=== PATIENT | female | born 1970 | race Caucasian/White ===

== ENCOUNTER 2019-09-15 08:31 | Outpatient (CLI) | payer OTHER, SELFPAY ==
--- NOTE | ~2019-09-15 | MM_ITS ---
EXAMINATION: MM screening cecilia BI w sherry HISTORY: Screening mammogram TECHNIQUE: Craniocaudal and mediolateral oblique 3-D tomosynthesis images were obtained and synthetic 2-D images were generated. CAD analysis was submitted and interpreted. COMPARISON: 09/02/2018, 05/21/2017, 05/08/2016 bilateral digital screening mammogram examinations BREAST PARENCHYMAL COMPOSITION: There are scattered areas of fibroglandular density. FINDINGS: There is no evidence of suspicious mass, calcification, or architectural distortion to sugg est malignancy in either breast. There has been no suspicious interval change. IMPRESSION: 1. No mammographic evidence of malignancy. 2. Recommend routine screening mammography in one year. BI-RADS Category 1: Negative Reviewed, dictated and finalized at location A. 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
== END 2019-09-15 08:32 | disposition home or self-care (01) ==
LOC: ANHIMG 08:34
PROVIDERS: PCP Internal Medicine; Visit Provider Obstetrics & Gynecology
DX: Z12.31 Encounter for screening mammogram for malignant neoplasm of breast (principal)
CPT/HCPCS: 77063; 77067

== ENCOUNTER 2020-08-22 16:27 | Outpatient (CLI) | payer OTHER, SELFPAY ==
--- NOTE | ~2020-08-22 | CT_ITS ---
EXAMINATION: CT abdomen pelvis w con DATE: 08/22/2020 17:01 INDICATION: Perirectal pelvic pain. TECHNIQUE: Computed tomography (CT) of the abdomen and pelvis was performed with 100 mL Omnipaque-350 intravenous contrast. Automated exposure control and iterative reconstruction technique were employe d. The dose-length product was 800.48 mGy-cm. COMPARISON: MRI dated 01/29/[address] dated 02/20/2018 and 05/22/2013 FINDINGS: Almost certainly benign 6 mm pleural-based nodule in the right middle lobe unchanged since 2012. Hear t size is normal. No pericardial or pleural effusion. Small sliding-type hiatal hernia. No interval c hange in numerous subcentimeter cystic lesions throughout the liver which could represent either typi vicky hepatic cysts, polycystic liver disease or biliary hamartomas in the setting of von [place] com plex. Gallbladder, spleen, pancreas, right kidney and bilateral adrenal glands are normal. 4 mm cyst in the left kidney. Nonobstructing 2 mm stone at the lower pole of the left kidney. Normal appendix. No abnormal bowel wall thickening or obstruction. Tiny fat-containing umbilical hernia. The uterus is not identified and has likely been surgically resected. Bladder is normal. No free intraperitoneal g as or fluid. No pathologically enlarged abdominal or pelvic lymphadenopathy. Minimal lumbar levocurva ture. IMPRESSION: 1. No acute intra-abdominal/pelvic process. No etiology for reported perirectal pain. 2. 2 mm nonobstructing right renal stone. 2. Small sliding-type hiatal hernia. Reviewed, dictated and finalized at location A. 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
== END 2020-08-22 16:28 | disposition home or self-care (01) ==
LOC: ANHIMG 16:28
PROVIDERS: PCP Internal Medicine; Visit Provider Obstetrics & Gynecology
DX: R10.2 Pelvic and perineal pain (principal); K62.89 Other specified diseases of anus and rectum; K44.9 Diaphragmatic hernia without obstruction or gangrene; N20.0 Calculus of kidney
CPT/HCPCS: 74177; Q9967

== ENCOUNTER 2020-09-16 16:45 | Outpatient (CLI) | payer OTHER, SELFPAY ==
--- NOTE | ~2020-09-16 | MM_ITS ---
EXAMINATION: MM screening cecilia BI w sherry HISTORY: Screening mammogram TECHNIQUE: Craniocaudal and mediolateral oblique 3-D tomosynthesis images were obtained and synthetic 2-D images were generated. CAD analysis was submitted and interpreted. COMPARISON: September 15, 2019 bilateral digital screening mammogram 09/02/2018, 05/21/2017 bilateral digital screening mammogram examinations BREAST PARENCHYMAL COMPOSITION: There are scattered areas of fibroglandular density. FINDINGS: There is no evidence of suspicious mass, calcification, or architectural distortion to sugg est malignancy in either breast. There has been no suspicious interval change. IMPRESSION: 1. No mammographic evidence of malignancy. 2. Recommend routine screening mammography in one year. BI-RADS Category 1: Negative Reviewed, dictated and finalized at location A. 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
== END 2020-09-16 16:46 | disposition home or self-care (01) ==
LOC: ANHIMG 16:47
PROVIDERS: PCP Internal Medicine; Visit Provider Obstetrics & Gynecology
DX: Z12.31 Encounter for screening mammogram for malignant neoplasm of breast (principal)
CPT/HCPCS: 77063; 77067

== ENCOUNTER → 2020-09-27 06:29 | Outpatient (CLI) | payer OTHER, SELFPAY ==
[2020-09-27 22:49] LABS: SARS-CoV-2 RNA PCR Negative
== END ==
PROVIDERS: PCP Internal Medicine; Visit Provider Internal Medicine Gastroenterology
DX: Z01.812 Encounter for preprocedural laboratory examination (principal); Z20.822 Contact with and (suspected) exposure to COVID-19
CPT/HCPCS: C9803; U0003; U0005

== ENCOUNTER 2020-09-30 01:06 | Day surgery (SDC) | payer OTHER, SELFPAY ==
[2020-09-17 15:39] VITALS: BMI 29.1
[2020-09-30] MEDS: LACTATED RINGERS 1,000 ML 150 ML IV CONT (08:55)
[2020-09-30 08:58] VITALS: BP 125/76; PULSE 76; RESP 18; TEMP 36.1; O2SAT 97; BMI 29.0
--- NOTE | 2020-09-30 09:13 | WPDANESEPPF ---
Anes - Initial Pre Proc Eval Procedure: Operation Date: 09/30/20 09:45 Proposed Procedures p Esophagogastroduodenoscopy - Enzo Johnson MD Date/Time: 09/30/20 09:13 Surgeon: Enzo Johnson MD Pre Op Diagnosis: Nausea Patient Data Age: 50 Gender: F Height: 5 ft 8 in Weight: 86.8 kg Last Vital Signs Temp 36.1 C L 09/30/20 08:58 Pulse 76 09/30/20 08:58 Resp 18 09/30/20 08:58 BP 125/76 09/30/20 08:58 Pulse Ox 97 09/30/20 08:58 Allergies Allergy/AdvReac Type Severity Reaction Status Date / Time prednisone Allergy Intermediate Rash Verified 09/30/20 08:57 Sulfa (Sulfonamide Allergy Intermediate rash Verified 09/30/20 08:57 Antibiotics) Home Medications Medication Instructions Recorded Confirmed Type estradiol 2 mg tablet 2 mg PO DAILY 01/31/20 09/17/20 History fexofenadine 180 mg tablet 180 mg PO DAILY 01/31/20 09/17/20 History multivitamin 1 tablet PO DAILY 01/31/20 09/17/20 History omeprazole 20 mg tablet,delayed 20 mg PO DAILY 02/01/20 09/17/20 History release gabapentin 100 mg capsule 100 mg PO TID PRN 09/09/20 09/17/20 History montelukast 10 mg tablet 10 mg PO HS PRN tablet 09/09/20 09/17/20 History acetaminophen-codeine 1 - 2 tablet PO Q4-6H PRN 09/17/20 09/17/20 History naproxen 500 mg PO Q12H PRN 09/17/20 09/17/20 History Patient hx anesthesia problems: post op nausea/vomiting Family hx anesthesia problems: none PMFSH Past Medical History Medical History (Updated 09/30/20 @ 09:14 by Ji Hunt MD) Chest pain Chronic pain syndrome History of solitary pulmonary nodule Irritable bowel syndrome Polycystic liver disease Surgical History Surgical History Delivery by section H/O total hysterectomy History of major abdominal surgery History of right oophorectomy Family History Family History Father Family history of lung cancer Mother Hypoglycemia Pacemaker Dissection, aorta Social History Social History Smoking status: Never smoker Alcohol intake: current Drinks per week: 1 Substance use: never Substance use type: does not use Living arrangements: with family Spiritual care concerns: No Anes - Eval Final PreProcedure Day of Procedure 09/30/20 09:13 Patient weight: overweight Heart: regular rate and rhythm Lungs: clear to auscultation Airway: Mallampati scale class II Neurological: alert and oriented Last oral intake: >/= 8 hours ASA classification: II Emergent: no Anesthetic plan: proceed Anesthesia type and monitoring: general GIVS and standard monitoring Informed Consent: The patient's anesthetic plan and its attendant risks and benefits were discussed with the patient/family/POA. Questions were solicited and answers provided to the satisfaction of the patient/family/POA.
--- NOTE | 2020-09-30 09:45 | PM.HPGS ---
History of Present Illness History of Present Illness Consent: Risks, benefits, and alternatives have been discussed and questions answered. Patient agrees to proceed with procedure. Chief complaint: Nausea Narrative: Mansi Jasmine is a 50 year old female with gerd on omeprazole but also nausea and diffuse abdominal pain, recent CT scan negative to explain symptoms, never had EGD. Also several gynecological surgeries now on gabapentin. Review of Systems Constitutional: Constitutional: Denies headache(s) and Denies weakness Eyes: Eyes: Denies blurry vision ENT: Reports Normal hearing present, Denies headache(s) and Denies neck pain Cardiovascular: Cardiovascular: Denies chest pain and Denies dyspnea Respiratory: Respiratory: Denies dyspnea Gastrointestinal: Gastrointestinal: Reports no additional gastrointestinal complaints Genitourinary: Genitourinary: Denies dysuria Musculoskeletal: Musculoskeletal: Denies neck pain Integumentary/Breasts: Skin/Breast: Denies dry skin Neurologic: Reports Normal hearing present, Denies headache(s) and Denies weakness Psychiatric: Psychiatric: Denies anxiety Endocrine: Endocrine: Denies change in body appearance Hematologic/Lymphatic: Hematologic/Lymphatic: Denies easy bleeding Allergic/Immunologic: Allergic/Immunologic: Denies urticaria PMFSH Past Medical History Medical History (Updated 09/30/20 @ 09:46 by Enzo Johnson MD) Abdominal pain Chest pain Chronic pain syndrome History of solitary pulmonary nodule Irritable bowel syndrome Polycystic liver disease Surgical History Surgical History (Updated 09/30/20 @ 09:46 by Enzo Johnson MD) Delivery by section H/O total hysterectomy History of major abdominal surgery History of right oophorectomy Family History Family History Father Family history of lung cancer Mother Hypoglycemia Pacemaker Dissection, aorta Social History Social History Smoking status: Never smoker Alcohol intake: current Drinks per week: 1 Substance use: never Substance use type: does not use Living arrangements: with family Spiritual care concerns: No Meds Home Medications and Allergies Home Medications Medication Instructions Recorded Confirmed Type estradiol 2 mg tablet 2 mg PO DAILY 01/31/20 09/17/20 History fexofenadine 180 mg tablet 180 mg PO DAILY 01/31/20 09/17/20 History multivitamin 1 tablet PO DAILY 01/31/20 09/17/20 History omeprazole 20 mg tablet,delayed 20 mg PO DAILY 02/01/20 09/17/20 History release gabapentin 100 mg capsule 100 mg PO TID PRN 09/09/20 09/17/20 History montelukast 10 mg tablet 10 mg PO HS PRN tablet 09/09/20 09/17/20 History acetaminophen-codeine 1 - 2 tablet PO Q4-6H PRN 09/17/20 09/17/20 History naproxen 500 mg PO Q12H PRN 09/17/20 09/17/20 History Allergies Allergy/AdvReac Type Severity Reaction Status Date / Time prednisone Allergy Intermediate Rash Verified 09/30/20 08:57 Sulfa (Sulfonamide Allergy Intermediate rash Verified 09/30/20 08:57 Antibiotics) Vital Signs Vital Signs - 24 hr 09/30/20 08:58 Temperature 97 F L Pulse Rate 76 Respiratory Rate 18 Blood Pressure 125/76 Pulse Oximetry 97 Exam Const: General: comfortable and no acute distress HENMT: General nose exam: Normal nares present Eyes: General: appearance normal, both eyes and all related structures Neck: Neck: no JVD Resp: Auscultation: clear to auscultation bilaterally Cardio: Rate: regular rate Rhythm: regular rhythm GI: Inspection: non-distended GI Palp: Yes Soft to palpation Skin: General skin exam: normal color Neuro: General: gait normal Speech: normal speech Extrem: General: normal to inspection Psych: Mental Status: mental status grossly normal Assessment and Plan Assessment and plan (1) Nausea alone:
[2020-09-30 10:03] VITALS: BP 117/77; PULSE 70; RESP 19; O2SAT 100
[2020-09-30 10:13] VITALS: BP 123/78; PULSE 71; RESP 21; O2SAT 98
[2020-09-30 10:23] VITALS: BP 128/77; PULSE 65; RESP 21; O2SAT 99
== END 2020-09-30 10:30 | disposition home or self-care (01) ==
PROVIDERS: PCP Internal Medicine; Visit Provider Internal Medicine Gastroenterology
PROC: 0DJ08ZZ Inspection of Upper Intestinal Tract, Via Natural or Artificial Opening Endoscopic (ICD-10-PCS; CPT 43235; principal; 2020-09-30 09:45)
DX: R11.0 Nausea (principal); R10.30 Lower abdominal pain, unspecified; K44.9 Diaphragmatic hernia without obstruction or gangrene; K29.50 Unspecified chronic gastritis without bleeding; K58.9 Irritable bowel syndrome, unspecified; Q44.6 Cystic disease of liver
CPT/HCPCS: 43239; 88305; C9803; J2704; J7120; U0003; U0005

== ENCOUNTER 2021-04-17 06:33 | Outpatient (CLI) | payer OTHER, SELFPAY ==
--- NOTE | ~2021-04-17 | CT_ITS ---
EXAMINATION: CT sinus wo con DATE: 04/17/2021 06:58 INDICATION: Headache TECHNIQUE: Computed tomography (CT) of the paranasal sinuses was performed without intravenous contra st. The dose-length product (DLP) was 308.46 mGy-cm. Iterative reconstruction was used. COMPARISON: 05/28/2008 FINDINGS: There is normal development and pneumatization of the paranasal sinuses. There is a 3 mm po lyp or mucous retention cyst of the right maxillary sinus. The frontal, sphenoid, ethmoid, and left m axillary sinus are clear. The bilateral ostiomeatal complexes are patent. Visualized soft tissues are unremarkable. IMPRESSION: 1. Tiny polyp or mucous retention cyst of the right maxillary sinus, otherwise unremarkable paranasal sinuses. Reviewed, dictated and finalized at location B.
== END 2021-04-17 06:34 | disposition home or self-care (01) ==
PROVIDERS: PCP Internal Medicine; Visit Provider Otolaryngology
DX: R51.9 Headache, unspecified (principal); R44.8 Other symptoms and signs involving general sensations and perceptions; J34.3 Hypertrophy of nasal turbinates; J34.2 Deviated nasal septum; J34.89 Other specified disorders of nose and nasal sinuses; J32.9 Chronic sinusitis, unspecified
CPT/HCPCS: 70486

== ENCOUNTER 2021-09-13 10:34 | Emergency (ER) | payer OTHER, SELFPAY ==
--- NOTE | ~2021-09-13 | CT_ITS ---
EXAMINATION: CT abdomen pelvis w con DATE: 09/13/2021 11:45 INDICATION: Abdomen pain for one month TECHNIQUE: Computed tomography (CT) of the abdomen and pelvis was performed with 100 cc Omnipaque 350 intravenous contrast. The dose-length product was 522.46 mGy-cm. Automated exposure control and iter ative reconstruction technique were employed. COMPARISON: CT dated 08/22/2020 FINDINGS: Stable pleural-based 6 mm right middle lobe nodule. Otherwise, lung bases unremarkable. Hea rt size normal. The spleen, pancreas, adrenal glands and kidneys are unremarkable. There are in numer able small cysts throughout the liver, which appear to be increased in number and size compared with prior examination. This may relate to phase of contrast enhancement. Differential diagnosis includes simple hepatic cysts, polycystic liver disease, hamartomas and microabscesses. Gallbladder is present . Nonobstructive bowel gas pattern. No free air or free fluid. No acute osseous abnormality. IMPRESSION: 1. Subtle increased number and size of cystic lesions throughout the liver. Differential diagnosis in cludes simple hepatic cyst, polycystic liver disease, biliary hamartomas and microabscesses. Reviewed, dictated and finalized at location A. 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 Subtle increased number and size of cystic lesions throughout the liver. Dif ferential diagnosis includes simple hepatic cyst, polycystic liver disease, sofia iary hamartomas and microabscesses.
[2021-09-13 10:45] VITALS: BP 150/83; PULSE 60; RESP 16; TEMP 36.4; O2SAT 100
[2021-09-13 11:01] LABS: Basophils Percent Auto 0.6 % (0.2-1.2); Eosinophils Absolute Auto 0.2 K/mm3 (0-0.3); Eosinophils Percent Auto 4.5 % (0-4.4); Hematocrit 41.8 % (37.0-47.0); Hemoglobin 13.8 g/dL (12.0-15.0); Immature Granulocyte Absolute 0.02 K/mm3 (0.00-0.031); Immature Granulocyte Percent A 0.4 % (0-0.5); Lymphocytes Percent Auto 35.6 % (18.3-44.2); Mean Corpuscular Hemoglobin 30.1 pg (26-34); Mean Corpuscular Volume 91.3 fl (80-100); Mean Platelet Volume 10.2 fl (7.4-10.4); Monocytes Absolute Auto 0.4 K/mm3 (0.1-0.6); Monocytes Percent Auto 7.3 % (2.6-8.5); Neutrophils Absolute Auto 2.6 K/mm3 (1.3-6.7); Neutrophils Percent Auto 51.6 % (45.5-73.1); Platelet Count Result 214 k/mm3 (150-375); Red Blood Count 4.58 M/mm3 (4.2-5.4); Red Cell Distribution Width 12.6 % (11.5-14.5); White Blood Count 5.1 K/mm3 (4.5-10.0)
[2021-09-13 11:05] LABS: Add Urine Microscopic? NO; Appearance Urine Clear (Clear); Bilirubin Urine Negative (Negative); Blood Urine Negative (Negative); Color Urine Yellow (Yellow); Glucose Urine UA Negative (Negative); Ketones Urine Negative (Negative); Leukocyte Esterase Ur Negative LEU/UL (Negative); Nitrate Urine Negative (Negative); Protein Urine Negative (Negative); Specific Grav Ur 1.023 (1.001-1.035); Urobilinogen Urine Negative mg/dL (<2.0)
[2021-09-13 11:14] LABS: Alanine Aminotransferase 22 U/L (4-35); Albumin Level 4.3 g/dL (3.5-5.1); Alkaline Phosphatase 88 U/L (38-126); Anion Gap 6 mmol/L (8-16); Aspartate Amino Transferase 32 U/L (14-36); Bilirubin,Total 0.4 mg/dL (0.2-1.3); Blood Urea Nitrogen 14 mg/dL (7-17); Calcium 9.5 mg/dL (8.4-10.2); Carbon Dioxide 25 mmol/L (22-30); Chloride 106 mmol/L (98-107); Estimated Glomerular Filt Rate > 60; Glucose 90 mg/dL (65-110); Lipase 68 U/L (23-300); Potassium 4.4 mmol/L (3.4-5.0); Sodium 137 mmol/L (137-145)
--- NOTE | 2021-09-13 11:22 | ED.GENADULT ---
HPI - General Adult General Chief complaint: Abdominal Pain Stated complaint: ABD/BACK PAIN Time Seen by Provider: 09/13/21 10:44 Source: patient History of Present Illness HPI narrative: Patient is a 51 y/o female complaining of abdominal pain starting yesterday. She states that her pain was initially in the epigastric area, but move to right lower abdomen now with radiation to right back. She states that her pain is sharp and rates it as 5/10. She states that walking and movement makes it worse. She has no vomiting, diarrhea, dysuria or hematuria. Related Data Home Medications Medication Instructions Recorded Confirmed estradiol 2 mg tablet 2 mg PO DAILY 01/31/20 03/09/21 fexofenadine 180 mg tablet 180 mg PO DAILY 01/31/20 03/09/21 multivitamin 1 tablet PO DAILY 01/31/20 03/09/21 gabapentin 100 mg capsule 100 mg PO TID PRN 09/09/20 03/09/21 montelukast 10 mg tablet 10 mg PO HS PRN tablet 09/09/20 03/09/21 acetaminophen-codeine 1 - 2 tablet PO Q4-6H PRN 09/17/20 03/09/21 naproxen 500 mg PO Q12H PRN 09/17/20 03/09/21 Allergies Allergy/AdvReac Type Severity Reaction Status Date / Time prednisone Allergy Intermediate Rash Verified 03/09/21 14:27 Sulfa (Sulfonamide Allergy Intermediate rash Verified 03/09/21 14:27 Antibiotics) Review of Systems Constitutional: Constitutional: Denies chills, Denies fever(s), Denies headache(s) and Denies weakness Eyes: Eyes: Denies blurry vision ENT: Denies headache(s) and Denies neck pain Cardiovascular: Cardiovascular: Denies chest pain and Denies dyspnea Respiratory: Respiratory: Denies cough and Denies dyspnea Gastrointestinal: Gastrointestinal: Reports abdominal pain, Denies diarrhea, Denies nausea and Denies vomiting Genitourinary: Genitourinary: Denies hematuria and Denies dysuria Musculoskeletal: Musculoskeletal: Denies back pain and Denies neck pain Neurologic: Denies headache(s) and Denies weakness PMF Past Medical History Medical History Abdominal pain Chest pain Chronic pain syndrome History of solitary pulmonary nodule Irritable bowel syndrome Polycystic liver disease Surgical History Surgical History Delivery by section H/O total hysterectomy History of major abdominal surgery History of right oophorectomy Family History Family History Father Family history of lung cancer Mother Hypoglycemia Pacemaker Dissection, aorta Social History Social History Smoking status: Never smoker Alcohol intake: current Drinks per week: 1 Alcohol use details: occasional Substance use: never Substance use type: does not use Spiritual care concerns: No Exam Const: General: no acute distress and well developed Orientation/consciousness: oriented to person, oriented to place, oriented to time and patient oriented x3 HENMT: Head: normocephalic Ears: external ears normal General nose exam: Normal external nose present Eyes: General: appearance normal, both eyes and all related structures Conjunctivae: conjunctivae normal Neck: Neck: normal visual inspection and full ROM Chest: Chest palpation & inspection: normal inspection of the chest and no tenderness Resp: Effort & Inspection: normal respiratory effort Auscultation: clear to auscultation bilaterally Cardio: Rate: regular rate Rhythm: regular rhythm GI: GI Palp: No abdominal tenderness and Yes Soft to palpation Skin: General skin exam: normal color and turgor normal Neuro: General: oriented to person, oriented to place, oriented to time and patient oriented x3 Cognition (Neuro): normal cognition Extrem: General: normal to inspection, full ROM and no pedal edema Psych: Appearance: grossly normal Mental Status: mental status grossly normal Affect: normal affe
[2021-09-13 15:23] VITALS: BP 114/57; PULSE 48; RESP 16; O2SAT 100
== END 2021-09-13 15:24 | disposition home or self-care (01) ==
PROVIDERS: Emergency Provider Emergency Medicine; PCP Internal Medicine
DX: R10.31 Right lower quadrant pain (principal); G89.4 Chronic pain syndrome; K58.9 Irritable bowel syndrome, unspecified; Q44.6 Cystic disease of liver
CPT/HCPCS: 36415; 74177; 80053; 81003; 83690; 85025; 99284; Q9967

== ENCOUNTER 2021-10-02 02:09 | Day surgery (SDC) | payer OTHER, SELFPAY ==
[2021-09-25 10:23] VITALS: BMI 27.0
--- NOTE | 2021-09-25 10:43 | PC.NURSE ---
Report to the Outpatient Waiting Room, entrance under the green pavilion located off [facility], at time 1130 on date 10/02/21. OR Time: 1330. - You and your visitor will be asked a series of questions to screen for COVID 19 for your protection. - A mask is required within the hospital. One visitor will be allowed to accompany the patient into the hospital. Patients visitor will be instructed to remain with patient at all times or leave the building. We will allow the visitor to come back to the postoperative area when patient is ready. Preoperative COVID Testing Requirements: TO E-MAIL COPY OF CARD No COVID Test needed if: (proof is required; if not received patient will have Rapid Test prior to entry) - Patient has received COVID Vaccine at least 14 days prior to procedure date or - Patient has positive COVID test result within last 90 days of surgery date. COVID Test needed if above criteria is not met Patients may have clear liquids (water, carbonated beverages, clear teas, apple juice) until 3 hours prior to surgery with a maximum of 20 ounces. - No food from midnight until time of surgery Take the following medications with a SIP of water the morning of surgery: ESTRADIOL, PAIN PILL (IF NEEDED) Medications to discontinue per physician: VITAMINS/SUPPLEMENTS Date to take last dose: 09/28/21 Please no make-up, nail kinyarwanda, hairspray, perfume, deodorant, or body powder the day of surgery. No jewelry (including any body piercings) or valuables the day of surgery, leave them at home. Please take a shower or bath the night before, or the morning of, surgery with an antibacterial soap. Wear comfortable, loose fitting clothing. - Jewelry must be removed prior to entering the operating room. Rings and piercings that are not removed may be cut off. - The hospital will not accept responsibility for valuables. - Please leave all valuables, including medications, at home the day of surgery. If you are going home after surgery, a licensed road train driver must drive you home. - NO public transportation without another adult. - We recommend that an adult stay with you for 24 hours following discharge. - We also recommend that you do not drive, make important decision, drink alcoholic beverages, or take any drugs that were not prescribed by your health care provider for at least 24 hours after your discharge time. Follow any additional instructions given to you from your surgeon. Telephone instructions given to SAMIRA GALLOWAY and asked if any additional questions and then verbalized understanding. Patient advised to call surgeon office or pre surgery nurse liaison [phone] if any additional questions.
--- NOTE | 2021-09-30 08:02 | PM.IMHP ---
H&P: HPI History of Present Illness Date/Time: 09/30/21 08:02 Since 51-year-old 2 para 1 status post hysterectomy was admitted for diagnostic laparoscopy secondary to pelvic pain and dyspareunia. She has long history of pelvic discomfort and pelvic adhesions and has had bowel issues since. Risks and benefits reviewed in full Chief Complaint: Pelvic pain and dyspareunia Review of Systems Review of Systems: All systems reviewed & are unremarkable except as noted in HPI and below PMFSH Past Medical History Medical History Abdominal pain Chest pain Chronic pain syndrome History of solitary pulmonary nodule Irritable bowel syndrome Polycystic liver disease Surgical History Surgical History Delivery by section H/O total hysterectomy History of major abdominal surgery History of right oophorectomy Family History Family History Father Family history of lung cancer Mother Hypoglycemia Pacemaker Dissection, aorta Social History Social History Smoking status: Never smoker Alcohol intake: current Drinks per week: 1 Alcohol use details: occasional Substance use: never Substance use type: does not use Living arrangements: with family Spiritual care concerns: No Meds Home Medications and Allergies Home Medications Medication Instructions Recorded Confirmed Type estradiol 2 mg tablet 2 mg PO DAILY 01/31/20 09/25/21 History fexofenadine 180 mg tablet 180 mg PO DAILY 01/31/20 09/25/21 History multivitamin 1 tablet PO DAILY 01/31/20 09/25/21 History acetaminophen-codeine 1 - 2 tablet PO Q4-6H PRN 09/17/20 09/25/21 History omeprazole 20 mg tablet,delayed 40 mg PO DAILY 90 Days #180 tablet 12/03/20 09/25/21 Rx release azelastine 137 mcg (0.1 %) nasal 1 spray INTRANASAL Q12H #30 ml 03/02/21 09/25/21 Rx spray aerosol albuterol sulfate 2 puff INHALATION Q6H PRN 09/25/21 09/25/21 History Allergies Allergy/AdvReac Type Severity Reaction Status Date / Time prednisone Allergy Intermediate Rash Verified 09/25/21 10:20 Sulfa (Sulfonamide Allergy Intermediate rash Verified 09/25/21 10:20 Antibiotics) Exam Const: General: no acute distress Eyes: General: appearance normal, both eyes and all related structures Neck: Neck: supple and no JVD Thyroid: thyroid normal Resp: Effort & Inspection: normal respiratory effort Auscultation: clear to auscultation bilaterally Cardio: Rate: regular rate Rhythm: regular rhythm GI: Inspection: non-distended GI Palp: Yes Soft to palpation, No Tenderness to palpation present (GI) and No Guarding due to palpation present (GI) Auscultation: normal bowel sounds : External Female Exam: normal external appearance Speculum Exam - Vagina: normal appearance of the vagina Speculum Exam - Cervix: Cervix absent Bimanual exam- vagina & uterus: uterus absent Bimanual Exam- Adnexa, other: tender bilaterally Skin: General skin exam: no rashes or lesions noted Extrem: General: normal to inspection and no edema Psych: Mental Status: mental status grossly normal Affect: normal affect Assessment and Plan Additional Plan Impression: Pelvic pain suspected adhesions Plan: Diagnostic laparoscopy
[2021-10-02] VITALS (10 sets, daily range): BP systolic 123–157; BP diastolic 67–90; PULSE 45–80; RESP 9–16; TEMP 36.1–36.4; O2SAT 95–100
--- NOTE | 2021-10-02 06:45 | WPDHPUPDATE1 ---
History and Physical Update Update Date/Time: 10/02/21 06:45 History and Physical has been reviewed, including an updated exam of the patient. There are NO changes in the patient's condition. Risks, benefits, and alternatives have been discussed and questions answered. Patient agrees to proceed with procedure.
[2021-10-02] MEDS: ACETAMINOPHEN 500 MG TABLET 1000 MG PO (11:47)
[2021-10-02] MEDS: LACTATED RINGERS 1,000 ML 30 ML IV CONT ×2 (12:08→13:55)
[2021-10-02] MEDS: KETOROLAC 15 MG/ML VIAL (*BKC) IV PUSH (12:09)
--- NOTE | 2021-10-02 12:21 | WPDANESEPPF ---
Anes - Initial Pre Proc Eval Procedure: Operation Date: 10/02/21 13:30 Proposed Procedures p Laparoscopy with Lysis of Adhesions - yT Lester MD Date/Time: 10/02/21 12:21 Surgeon: Ty Lester MD Pre Op Diagnosis: Pelvic Pain, Pelvic Adhesions Patient Data Age: 51 Gender: F Height: 1.73 m Weight: 81.6 kg Last Vital Signs Temp 36.4 C 10/02/21 12:13 Pulse 50 L 10/02/21 12:13 Resp 16 10/02/21 12:13 BP 136/67 10/02/21 12:13 Pulse Ox 100 10/02/21 12:13 Allergies Allergy/AdvReac Type Severity Reaction Status Date / Time prednisone Allergy Intermediate Rash Verified 10/02/21 11:41 Sulfa (Sulfonamide Allergy Intermediate rash Verified 10/02/21 11:41 Antibiotics) Home Medications Medication Instructions Recorded Confirmed Type estradiol 2 mg tablet 2 mg PO DAILY 01/31/20 10/02/21 History fexofenadine 180 mg tablet 180 mg PO DAILY 01/31/20 10/02/21 History multivitamin 1 tablet PO DAILY 01/31/20 10/02/21 History acetaminophen-codeine 1 - 2 tablet PO Q4-6H PRN 09/17/20 09/25/21 History omeprazole 20 mg tablet,delayed 40 mg PO DAILY 90 Days #180 tablet 12/03/20 10/02/21 Rx release albuterol sulfate 2 puff INHALATION Q6H PRN 09/25/21 09/25/21 History fluticasone propionate [Flonase] 1 spray INTRANASAL DAILY 10/02/21 10/02/21 History hydrocodone-acetaminophen 1 tablet PO Q4H PRN #30 tablet 10/02/21 Rx Patient hx anesthesia problems: none Family hx anesthesia problems: none Results Review: All pre-operative results and documents have been reviewed as part of the pre-operative evaluation. [facility] Past Medical History Medical History Abdominal pain Chest pain Chronic pain syndrome History of solitary pulmonary nodule Irritable bowel syndrome Polycystic liver disease Surgical History Surgical History Delivery by section H/O total hysterectomy History of major abdominal surgery History of right oophorectomy Family History Family History Father Family history of lung cancer Mother Hypoglycemia Pacemaker Dissection, aorta Social History Social History Smoking status: Never smoker Alcohol intake: current Drinks per week: 1 Alcohol use details: occasional Substance use: never Substance use type: does not use Living arrangements: with family Spiritual care concerns: No Anes - Eval Final PreProcedure Day of Procedure 10/02/21 12:21 Patient weight: overweight Heart: regular rate and rhythm Lungs: clear to auscultation Airway: Mallampati scale class II Neurological: alert and oriented Last oral intake: >/= 8 hours ASA classification: II Emergent: no Anesthetic plan: proceed Anesthesia type and monitoring: general ETT and standard monitoring Results Review: All pre-operative results and documents have been reviewed as part of the pre-operative evaluation. Informed Consent: The patient's anesthetic plan and its attendant risks and benefits were discussed with the patient/family/POA. Questions were solicited and answers provided to the satisfaction of the patient/family/POA.
--- NOTE | 2021-10-02 13:46 | P.OP_ITS ---
Procedure Note - Detailed Date of Procedure 10/02/21 Pre-op Diagnosis Pelvic Pain, Pelvic Adhesions Post-op Diagnosis same Procedure Performed Laparoscopic lysis of adhesions Surgeon Ty Lester MD Anesthesia general Indications Is a 51-year-old female status post Hyst BSO with pelvic pain and suspected a dhesions Findings Absent uterus ovaries and tubes. Multiple adhesions to the vaginal cuff from the omentum. Colon was stuck laterally on left pelvic sidewall. Some omental adhesions were seen anteriorly. Description of Procedure The patient was prepped draped in the normal sterile fashion placed in dorsal lithotomy position. Under excellent general trach anesthesia weighted speculum placed posterior fornix vagina. Sponge stick was placed in the bladder draining clear urine. The weighted speculum was removed and gloves were changed. An infraumbilical incision made the Veress needle passed in the abdomen. Abdomen filled with CO2 gas to 15 the 5mm trocar advanced under direct visualization using the optic scope and no injury seen. Patient placed in Trendelenburg and a suprapubic incision made. The 5mm trocar advanced under direct visualization assuring no injury. Multiple adhesions were seen these adhesions were then sharply dissected using Endo Keren and irrigation. The entire cul-de-sac was S docked. Once this was cleared irrigation was undertaken. All pedicles appeared dry. And the lower site removed. The gas removed from the abdomen the upper site removed. The incisions closed with 4 Monocryl and glue and the sponge stick removed from the vagina. Patient sussy ated the procedure well. All sponge, needle, instrument counts were correct. There were no immediate complications Estimated Blood Loss 5 Drains No Packing No Pathology none sent Complications No immediate complications Condition stable Disposition PACU
[2021-10-02] MEDS: oxyCODONE HCL (*CRX) 5 MG TAB IR PO (15:57)
== END 2021-10-02 16:25 | disposition home or self-care (01) ==
PROVIDERS: PCP Internal Medicine; Visit Provider Obstetrics & Gynecology
PROC: (CPT 49320; principal; 2021-10-02 13:30)
DX: R10.2 Pelvic and perineal pain (principal); N73.6 Female pelvic peritoneal adhesions (postinfective); N94.10 Unspecified dyspareunia; Z90.710 Acquired absence of both cervix and uterus; Z79.51 Long term (current) use of inhaled steroids; K58.9 Irritable bowel syndrome, unspecified; K76.9 Liver disease, unspecified; G89.4 Chronic pain syndrome
CPT/HCPCS: 58660; 36415; 86850; 86900; 86901; A9270; J0330; J1100; J1885; J2250; J2270; J2405; J2704; J7120

== ENCOUNTER → 2021-10-20 08:27 | Outpatient (CLI) | payer OTHER, SELFPAY ==
[2021-10-20 12:58] LABS: Influenza A QL RT-PCR Negative (Negative); Influenza B QL RT-PCR Negative (Negative); SARS-CoV-2 RNA PCR Negative
== END ==
PROVIDERS: PCP Internal Medicine; Visit Provider Clinical Nurse Specialist
DX: R09.81 Nasal congestion (principal); Z20.822 Contact with and (suspected) exposure to COVID-19
CPT/HCPCS: 87502; C9803; U0003; U0005

== ENCOUNTER 2021-11-16 07:32 | Outpatient (CLI) | payer OTHER, SELFPAY ==
--- NOTE | ~2021-11-16 | MM_ITS ---
EXAMINATION: MM screening cecilia BI w sherry HISTORY: Screening mammogram TECHNIQUE: Craniocaudal and mediolateral oblique 3-D tomosynthesis images were obtained and synthetic 2-D images were generated. CAD analysis was submitted and interpreted. COMPARISON: September 16, 2020, September 15, 2019, September 02, 2018 bilateral screening mammogram examin ations. BREAST PARENCHYMAL COMPOSITION: There are scattered areas of fibroglandular density. FINDINGS: There is no evidence of suspicious mass, calcification, or architectural distortion to sugg est malignancy in either breast. There has been no suspicious interval change. IMPRESSION: 1. No mammographic evidence of malignancy. 2. Recommend routine screening mammography in one year. BI-RADS Category 1: Negative Reviewed, dictated and finalized at location A.
== END 2021-11-16 07:33 | disposition home or self-care (01) ==
LOC: ANHIMG 07:33
PROVIDERS: PCP Internal Medicine; Visit Provider Obstetrics & Gynecology
DX: Z12.31 Encounter for screening mammogram for malignant neoplasm of breast (principal)
CPT/HCPCS: 77063; 77067

== ENCOUNTER → 2022-01-09 00:05 | Outpatient (CLI) | payer OTHER, SELFPAY ==
[2022-01-09 11:24] LABS: SARS-CoV-2 RNA PCR Positive
== END ==
PROVIDERS: PCP Clinical Nurse Specialist; Visit Provider Clinical Nurse Specialist
DX: U07.1 COVID-19 (principal)
CPT/HCPCS: C9803; U0003; U0005

== ENCOUNTER 2022-02-10 10:39 | Outpatient (CLI) | payer OTHER, SELFPAY ==
--- NOTE | ~2022-02-10 | MR_ITS ---
EXAMINATION: MR brain/brain stem wo/w con DATE: 02/10/2022 16:19 CDT INDICATION: Migraine headache TECHNIQUE: Magnetic resonance imaging (MRI) of the brain and brainstem was performed without and with 16 cc MultiHance intravenous contrast. Sequences included sagittal and axial T1-weighted SE, axial d iffusion-weighted FS SE, axial T2*-weighted GRE, axial T2-weighted FLAIR Propeller, and axial T2-weig hted Propeller. Apparent diffusion coefficient (ADC) maps were created. COMPARISON: No prior studies for comparison. FINDINGS: The brain volume and ventricular system are within normal limits. The brain parenchymal si gnal intensity pattern and fagan/white matter is normal and there is no evidence of hemorrhage, space occupying masses or infarctions. The flow signal voids of the major arterial structures about the [place] and within the gl[place] r dural venous sinuses appear grossly unremarkable and patent. The seventh and eighth cranial nerve complexes are normal. The mid sagittal image demonstrates a normal craniovertebral junction and akin us callosum. The paranasal sinuses are grossly unremarkable. No abnormal contrast enhancement was appreciated. IMPRESSION: 1: Unremarkable MRI of the brain. Reviewed, dictated and finalized at location A.
[2022-02-10 11:18] LABS: Estimated Glomerular Filt Rate > 60
== END 2022-02-10 10:40 | disposition home or self-care (01) ==
PROVIDERS: PCP Internal Medicine; Visit Provider Clinical Nurse Specialist
DX: G43.909 Migraine, unspecified, not intractable, without status migrainosus (principal)
CPT/HCPCS: 70553; A9577

== ENCOUNTER 2022-05-30 10:19 | Emergency (ER) | payer OTHER, SELFPAY ==
--- NOTE | ~2022-05-30 | XR_ITS ---
EXAMINATION: XR chest 2V DATE: 05/30/2022 11:38 INDICATION: Chest heaviness and burning pain TECHNIQUE: PA and lateral views of the chest were obtained. COMPARISON: 02/20/2018 FINDINGS: The lungs remain clear with no focal airspace opacities, pulmonary edema, pleural effusion or pneumot horax. The cardiomediastinal silhouette is normal. Visualized bones and soft tissues are unremarkable . IMPRESSION: 1. No acute cardiopulmonary disease. Reviewed, dictated and finalized at location A.
--- NOTE | ~2022-05-30 | US_ITS ---
EXAMINATION: US venous doppler LE RT DATE: 05/30/2022 13:23 INDICATION: Right lower limb pain TECHNIQUE: Grayscale ultrasound images without and with compression and Doppler ultrasound images of the right lower extremity veins were obtained. COMPARISON: None. FINDINGS: The visualized portions of right common femoral vein, profunda (deep) femoral vein, femoral vein, pop liteal vein, peroneal trunk, posterior tibial veins, peroneal veins and greater saphenous vein outflo w are patent. IMPRESSION: 1. No deep venous thrombosis in the right lower limb. Reviewed, dictated and finalized at location A.
--- NOTE | ~2022-05-30 | CT_ITS ---
EXAMINATION: CTA chest abdomen pelvis DATE: 05/30/2022 13:05 INDICATION: Chest and back pain TECHNIQUE: Computed tomographic angiography (CTA) of the chest, abdomen and pelvis was performed with 150 cc of Omnipaque-350 intravenous contrast. Additional 3D reconstructions utilizing rotating maxim um intensity projection (MIP) were performed. Automated exposure control and iterative reconstruction technique were employed. The dose-length product was 674.13 mGy-cm. COMPARISON: 02/20/2018 FINDINGS: Chest: Mild dependent atelectasis in the bilateral lower lobes. No pneumonia, pulmonary edema, pleural effus ion or pneumothorax. No pulmonary embolism. Heart size is normal. Thoracic aorta is normal in caliber with no dissection. No pathologically enlarged thoracic lymphadenopathy. Small sliding-type hiatal h ernia versus mild wall thickening the distal esophagus. Mild thoracic spondylosis. Abdomen/pelvis: Abdominal aorta is normal in caliber with no dissection. Again seen are numerous small cysts scattere d throughout the liver. Gallbladder, pancreas, spleen, bilateral adrenal glands and kidneys are fawad l. Bowels including the appendix are normal. Very small fat-containing umbilical hernia. No free intr aperitoneal gas or fluid. No pathologically enlarged abdominal or pelvic lymphadenopathy. Mild to mod erate lumbar facet osteoarthritis. IMPRESSION: 1. No acute intrathoracic or intra-abdominal/pelvic process. Specifically normal aorta with no aneury sm or dissection. 2. Small sliding-type hiatal hernia versus mild pleural thickening the distal esophagus. Reviewed, dictated and finalized at location A. IMPRESSION: 1. No acute intrathoracic or intra-abdominal/pelvic process. Specifically fawad l aorta with no aneurysm or dissection. 2. Small sliding-type hiatal hernia versus mild pleural thickening the distal e sophagus.
--- NOTE | 2022-05-30 10:20 | ECG_ITS ---
Measurements Intervals [place] Rate: 62 P: 53 CA: 125 QRS: 26 QRSD: 96 T: 34 QT: 400 QTc: 408 Interpretive Statements SINUS RHYTHM NO PREVIOUS ECG AVAILABLE FOR COMPARISON Electronically Signed On 05-30-2022 19:47:17 CDT by Karen Reardon M.D.
[2022-05-30 10:35] VITALS: BP 137/77; PULSE 83; RESP 14; TEMP 36.5; O2SAT 100
[2022-05-30 11:10] LABS: Add Urine Microscopic? NO; Appearance Urine Clear (Clear); Bilirubin Urine Negative (Negative); Blood Urine Negative (Negative); Color Urine Straw (Yellow); Glucose Urine UA Negative (Negative); Ketones Urine Negative (Negative); Leukocyte Esterase Ur Negative LEU/UL (Negative); Nitrate Urine Negative (Negative); Protein Urine Negative (Negative); Urobilinogen Urine Negative mg/dL (<2.0)
[2022-05-30 11:11] LABS: Specific Grav Ur 1.003 (1.001-1.035)
[2022-05-30 11:14] VITALS: O2SAT 100
[2022-05-30 11:15] VITALS: O2SAT 99
[2022-05-30 11:48] VITALS: PULSE 60
[2022-05-30 11:52] LABS: Basophils Percent Auto 0.5 % (0.2-1.2); Eosinophils Absolute Auto 0.1 K/mm3 (0-0.3); Eosinophils Percent Auto 1.9 % (0-4.4); Hematocrit 38.8 % (37.0-47.0); Hemoglobin 12.9 g/dL (12.0-15.0); Immature Granulocyte Absolute 0.02 K/mm3 (0.00-0.031); Immature Granulocyte Percent A 0.3 % (0-0.5); Lymphocytes Absolute Auto 1.56 K/mm3 (0.9-3.2); Lymphocytes Percent Auto 26.4 % (18.3-44.2); Mean Corpuscular HGB Conc 33.2 g/dl (32-36); Mean Corpuscular Hemoglobin 29.9 pg (26-34); Mean Corpuscular Volume 89.8 fl (80-100); Mean Platelet Volume 9.8 fl (7.4-10.4); Monocytes Absolute Auto 0.4 K/mm3 (0.1-0.6); Monocytes Percent Auto 6.1 % (2.6-8.5); Neutrophils Absolute Auto 3.8 K/mm3 (1.3-6.7); Neutrophils Percent Auto 64.8 % (45.5-73.1); Platelet Count Result 237 k/mm3 (150-375); Red Blood Count 4.32 M/mm3 (4.2-5.4); Red Cell Distribution Width 12.6 % (11.5-14.5); White Blood Count 5.9 K/mm3 (4.5-10.0)
[2022-05-30 12:09] LABS: Prothrombin Time 13.1 Seconds (11.1-14.7)
[2022-05-30 12:10] LABS: Partial Thromboplastin Time 30.5 SECONDS (22.3-36.8)
[2022-05-30 12:16] VITALS: BP 135/77; PULSE 60; RESP 20; O2SAT 99
[2022-05-30 12:17] LABS: Alanine Aminotransferase 30 U/L (6-35); Albumin Level 4.4 g/dL (3.5-5.1); Alkaline Phosphatase 86 U/L (38-126); Anion Gap 16 mmol/L (8-16); Aspartate Amino Transferase 30 U/L (14-36); Bilirubin,Total 0.4 mg/dL (0.2-1.3); Blood Urea Nitrogen 15 mg/dL (7-17); Calcium 9.4 mg/dL (8.4-10.2); Carbon Dioxide 21 mmol/L (22-30); Chloride 105 mmol/L (98-107); Estimated CRCL calculation 93 ml/min; Estimated Glomerular Filt Rate > 60; Glucose 80 mg/dL (65-110); Lipase 101 U/L (23-300); Potassium 3.9 mmol/L (3.4-5.0); Sodium 142 mmol/L (137-145)
[2022-05-30 12:29] LABS: Troponin I < 0.012 ng/mL (0.000-0.034)
--- NOTE | 2022-05-30 12:53 | ED.CHESTPAIN ---
HPI - Chest Pain General Chief Complaint: Chest Pain Stated Complaint: Multiple complaints Time Seen by Provider: 05/30/22 12:01 History of Present Illness HPI narrative: Patient states a few days ago she started noticing some burning pain in the back of her calf, and what feels like a muscle cramp. She has never had blood clots before. She is also concerned because she is having of feeling of chest pain that seems to go down to her abdomen, and left arm, and her mom had been diagnosed with a aortic dissection. No focal numbness or weakness. Related Data Home Medications Medication Instructions Recorded Confirmed estradiol 2 mg tablet 2 mg PO DAILY 01/31/20 01/25/22 fexofenadine 180 mg tablet 180 mg PO DAILY 01/31/20 01/25/22 (Mary Allergy) multivitamin 1 tablet PO DAILY 01/31/20 01/25/22 albuterol sulfate 90 mcg/actuation 2 puff inhalation Q6H PRN 09/25/21 01/25/22 aerosol inhaler Bronchospasm fluticasone propionate 50 1 spray intranasal DAILY 10/02/21 01/25/22 mcg/actuation nasal spray,suspension Allergies Allergy/AdvReac Type Severity Reaction Status Date / Time Sulfa (Sulfonamide Allergy Intermediate rash Verified 05/30/22 11:50 Antibiotics) grass pollen Allergy sinus Verified 05/30/22 11:50 congestion azithromycin AdvReac Mild Diarrhea Verified 05/30/22 11:50 Review of Systems Review of Systems: CONST: No fever. HEENT: Chronic congestion C/V: chest pain RESP: No cough GI: Reports abdominal pain : No dysuria. M/S: Left arm pain, right leg pain SKIN: No rash. NEURO: [No headache or focal numbness or weakness] PSYCH: [No depression] [facility] Past Medical History Medical History Abdominal pain Chest pain Chronic pain syndrome History of solitary pulmonary nodule Irritable bowel syndrome Polycystic liver disease Surgical History Surgical History Delivery by section H/O total hysterectomy History of major abdominal surgery History of right oophorectomy Family History Family History Father Family history of lung cancer Mother Hypoglycemia Pacemaker Dissection, aorta Social History Social History Smoking status: Never smoker Alcohol intake: current Drinks per week: 1 Alcohol use details: occasional Substance use: never Substance use type: does not use Spiritual care concerns: No Exam Narrative: EXAMINATION OF ORGAN SYSTEMS/BODY AREAS: Constitutional: Vital signs per nursing GENERAL:[No acute distress, non-toxic appearing.] HEAD: Normal with no signs of head trauma. EYES: EOMI, conjunctiva normal ENT: Hearing grossly intact LUNGS: Nonlabored breathing. HEART: [Regular rate and rhythm] ABD: [Soft], [nontender to palpation] EXT: Normal range of motion; normal bilateral radial and pedal pulses; minimal right lower extremity tenderness SKIN: [No rashes or lesions.] NEURO: [Alert and oriented x 3. No gross focal sensory or strength deficits.] PSYCH: Normal affect Course Vital Signs Vital signs: Vital Signs Temperature 97.7 F 05/30/22 10:35 Pulse Rate 83 05/30/22 10:35 Respiratory Rate 14 05/30/22 10:35 Blood Pressure 137/77 05/30/22 10:35 Pulse Oximetry 100 05/30/22 10:35 Temperature 97.7 F 05/30/22 10:35 Pulse Rate 60 05/30/22 12:16 Respiratory Rate 20 05/30/22 12:16 Blood Pressure 135/77 05/30/22 12:16 Pulse Oximetry 99 05/30/22 12:16 Oxygen Delivery Room Air 05/30/22 11:15 MDM - Chest Pain MDM Narrative Medical decision making narrative: ED COURSE AND MEDICAL DECISION MAKIN-year-old female presenting with chest pain and right lower extremity pain. EKG done in triage negative for acute ischemic changes. Cardiac workup is initiated. EKG: Performed in triage and interpreted by me
[2022-05-30 15:13] LABS: Troponin I 0.013 ng/mL (0.000-0.034)
[2022-05-30 15:47] VITALS: BP 123/73; PULSE 60; RESP 18; O2SAT 98
== END 2022-05-30 15:49 | disposition home or self-care (01) ==
PROVIDERS: Emergency Medicine; Emergency Provider Emergency Medicine; PCP Internal Medicine
DX: R07.89 Other chest pain (principal); G89.4 Chronic pain syndrome; K58.9 Irritable bowel syndrome, unspecified; Q44.6 Cystic disease of liver; Z90.710 Acquired absence of both cervix and uterus; Z90.721 Acquired absence of ovaries, unilateral; M79.661 Pain in right lower leg
CPT/HCPCS: 36415; 71046; 71275; 74174; 80053; 81003; 81025; 83690; 84484; 85025; 85610; 85730; 93005; 93971; 99284; Q9967

== ENCOUNTER 2022-08-03 08:33 | Outpatient (CLI) | payer OTHER, SELFPAY ==
--- NOTE | 2022-08-03 11:00 | NEURO_ITS ---
Impression: # Complains of pain in right lower extremity. # Normal nerve conduction study. # Needle/EMG exam revealed mild neurogenic changes in right EDB. # Clinical correlation recommended; Findings suggestive of right peroneal nerve dysfunction; Higher involvement needs to be ruled out. Motor Nerve Conduction Lower Extremities Peroneal Nerve Conduction Velocity (m/sec) Terminal Latency (msec) Response Voltage(mV) Popliteal space-Ankle Ankle Extensor Dig Brevis Popliteal space Ankle Right 48 4.0 3 3 Left Tibial Nerve Conduction Velocity (m/sec) Terminal Latency (msec) Response Voltage(mV) Popliteal space-Ankle Ankle-Extensor Dig Brevis Popliteal space Ankle Right 47 4.3 3 4 Left F-waves Peroneal Nerve (ms) Tibial Nerve (ms) Right 52.7 52.0 Left Sensory Nerve Conduction Lower Extremities Sural Nerve Stimulation Terminal Latency (msec) Ankle Response Voltage (uV) Ankle Response Velocity (m/sec) Right 4.0 9 43 Left Superficial Peroneal Nerve Stimulation Terminal Latency (msec) Ankle Response Voltage (uV) Ankle Response Velocity (m/sec) Right 3.5 12 46 Left Left Right Muscles Examined Fibrillation Fasciculation Scarcity Voltage Duration Left Right Left Right Left Right Left Right Left Right X Ant Tibialis X Gastroc X Fibularis Long X Flex Dig Long X Ext Dig Brev Reduced >12ms Abd Hallucis Quadriceps Paraspinals MTDD
== END 2022-08-03 08:34 | disposition home or self-care (01) ==
LOC: ANHNEURO 08:34
PROVIDERS: Visit Provider Nurse Practitioner
DX: G58.8 Other specified mononeuropathies (principal)
CPT/HCPCS: 95886; 95908

== ENCOUNTER → 2022-08-03 12:43 | Outpatient (CLI) | payer OTHER, SELFPAY ==
--- NOTE | ~2022-08-03 | MR_ITS ---
EXAMINATION: MR knee RT wo con DATE: 08/03/2022 13:31 INDICATION: Right knee pain TECHNIQUE: Magnetic resonance imaging (MRI) of the right knee was performed without intravenous contr ast. Sequences included coronal PD-weighted FSE, coronal PD-weighted FS FSE, sagittal T2-weighted FS E, sagittal PD-weighted FS FSE and axial PD weighted fat saturated FSE. COMPARISON: None. FINDINGS: Medial compartment: Medial meniscus is normal. Articular cartilage is normal. Lateral compartment: Lateral meniscus is normal. Articular cartilage is normal. Patellofemoral compartment: Partial-thickness chondral fissuring without degenerative subchondral changes at the patellar apical ridge and inferior aspect of the medial facet. Additional chondral fissuring with minimal underlying subarticular edema-like signal change at the inferior aspect of the medial trochlea. Ligaments and tendons: Anterior and posterior cruciate ligaments are normal. The medial collateral ligament and fibular abel ateral ligament complex are normal. The extensor mechanism is normal. The visualized medial and later al hamstring tendons as well as the iliotibial band are normal. Fluid: Minimal joint effusion at the suprapatellar pouch. No loose osteochondral bodies identified. No Sidhu 's cyst or other abnormal fluid collections. Osseous/other: Normal marrow signal. No fracture or pathologic marrow replacing process. IMPRESSION: 1. Mild patellofemoral osteoarthritis with scattered moderate grade patellar chondromalacia and small focus of high-grade chondromalacia at the inferior medial trochlea. Reviewed, dictated and finalized at location A. MER IMPRESSION: 1. Mild patellofemoral osteoarthritis with scattered moderate grade patellar ch ondromalacia and small focus of high-grade chondromalacia at the inferior media l trochlea.
== END ==
PROVIDERS: PCP Internal Medicine; Visit Provider Nurse Practitioner Family
DX: M25.561 Pain in right knee (principal); M17.11 Unilateral primary osteoarthritis, right knee; M94.261 Chondromalacia, right knee
CPT/HCPCS: 73721

== ENCOUNTER 2022-09-20 14:46 | Outpatient (CLI) | payer OTHER, SELFPAY ==
[2022-09-20 16:29] LABS: SARS-CoV-2 RNA PCR Positive
== END 2022-09-20 14:47 | disposition home or self-care (01) ==
LOC: ANHLAB 14:47
PROVIDERS: PCP Internal Medicine; Visit Provider Nurse Practitioner
DX: U07.1 COVID-19 (principal)
CPT/HCPCS: U0003; U0005

== ENCOUNTER 2022-12-12 16:59 | Emergency (ER) | payer OTHER, SELFPAY ==
--- NOTE | 2022-12-12 17:05 | ED.URI ---
HPI - URI/Sore Throat General Chief Complaint: Upper Respiratory Infection Stated Complaint: sinus Time Seen by Provider: 12/12/22 17:05 Source: patient and RN notes reviewed History of Present Illness HPI Narrative: 52-year-old female presents to urgent care with complaints of worsening congestion and sinus pain and pressure. Patient states she has been having her symptoms since last Tuesday. Patient reports postnasal, frontal headache and pressure bilateral ear pressure. Pt states she gets sinus infections often and sees an mixer blender regularly for allergy shots. Pt states her sinuses are swollen. States she has been using her nasal spray daily with no relief. Denies any fevers, chills, chest pain, or SOB. Related Data Home Medications Medication Instructions Recorded Confirmed estradiol 2 mg tablet 2 mg PO DAILY 01/31/20 12/12/22 fexofenadine 180 mg tablet 180 mg PO DAILY 01/31/20 12/12/22 (Mary Allergy) multivitamin 1 tablet PO DAILY 01/31/20 12/12/22 albuterol sulfate 90 mcg/actuation 2 puff inhalation Q6H PRN 09/25/21 12/12/22 aerosol inhaler Bronchospasm fluticasone propionate 50 1 spray intranasal DAILY 10/02/21 12/12/22 mcg/actuation nasal spray,suspension olopatadine 0.6 % nasal spray 2 spray intranasal BID 05/31/22 12/12/22 Allergies Allergy/AdvReac Type Severity Reaction Status Date / Time Sulfa (Sulfonamide Allergy Intermediate rash Verified 12/12/22 17:04 Antibiotics) grass pollen Allergy sinus Verified 12/12/22 17:04 congestion azithromycin AdvReac Mild Diarrhea Verified 12/12/22 17:04 Review of Systems Review of Systems: Pertinent positives and pertinent negatives per HPI. [facility] Past Medical History Medical History (Updated 12/12/22 @ 17:15 by Joann Merchant, SHAYLA) Abdominal pain Chest pain Chondromalacia Chronic pain syndrome Gastritis Hiatal hernia History of solitary pulmonary nodule Irritable bowel syndrome Medial meniscus tear Overweight (BMI 25.0-29.9) Polycystic liver disease Right knee pain Right knee pain Surgical History Surgical History Delivery by section H/O total hysterectomy History of major abdominal surgery History of right oophorectomy Family History Family History Father Family history of lung cancer Mother Hypoglycemia Pacemaker Dissection, aorta Social History Social History Smoking status: Never smoker Alcohol intake: current Drinks per week: 1 Alcohol use details: occasional Substance use: never Substance use type: does not use Living arrangements: with family Spiritual care concerns: No Comments At the time of my signature, I reviewed and agree with the nursing past medical, surgical, social, and family history. There is no relevant family history pertinent to the patient complaint. Exam Narrative: GENERAL: This is a well-nourished, well-developed patient, in no apparent distress. HEAD: normocephalic, atraumatic. EYES: Sclera clear/white. Vision is grossly intact. EARS: External ears normal, auditory canals clear and without drainage, TMs normal without perforation. Hearing grossly intact. NOSE: External nose normal with no obvious nasal discharge, nares without redness, no rhinorrhea. THROAT: Mucous membranes moist, posterior pharynx erythremic witih postnasal drainage. NECK: Neck supple, non-tender without lymphadenopathy, masses or thyromegaly. CARDIOVASCULAR: Regular rate and rhythm without murmurs, gallops, or rubs. RESPIRATORY: Clear to auscultation. Breath sounds equal bilaterally. No wheezes, rales, or rhonchi. SKIN: warm, intact with no suspicious lesions or rash, good texture and turgor. NEURO: awake, alert, and oriented to person, place and time. There were no obvious focal neurologic abnormalities. Course Course Le
[2022-12-12 17:32] VITALS: BP 129/68; PULSE 65; RESP 16; TEMP 36.1; O2SAT 98
== END 2022-12-12 17:15 | disposition home or self-care (01) ==
PROVIDERS: Emergency Provider Nurse Practitioner Family; PCP Internal Medicine
DX: J32.0 Chronic maxillary sinusitis (principal); Q44.6 Cystic disease of liver
CPT/HCPCS: 99213; G0463

== ENCOUNTER 2022-12-26 15:57 | Emergency (ER) | payer OTHER, SELFPAY ==
[2022-12-26 16:01] VITALS: BP 147/85; PULSE 80; RESP 19; TEMP 36.6; O2SAT 100
--- NOTE | 2022-12-26 17:33 | ED.GENADULT ---
HPI - General Adult General Chief complaint: Unspecified Stated complaint: yeast infection Time Seen by Provider: 12/26/22 17:24 Source: patient Mode of arrival: ambulatory Limitations: no limitations History of Present Illness HPI narrative: This is a 52-year-old female who presents to the ED with chief complaint of pelvic pain and discharge x4 days. Patient was recently started on Augmentin for a sinus infection and has since finished this. She also received a steroid prescription. She felt that she had yeast-like symptoms following these prescriptions. She was given a prescription for fluconazole. She states she took both doses a couple of days apart and maybe had a little bit of relief but it is coming back. Reports significant pelvic irritation and burning. Reports vaginal discharge with thick cottage cheeselike discharge. Reports some lower abdominal pressure and rectal area pain. Denies any problems with bowel movements. Denies urinary symptoms, vaginal bleeding. Denies fevers, chills, back pain. Related Data Home Medications Medication Instructions Recorded Confirmed estradiol 2 mg tablet 2 mg PO DAILY 01/31/20 12/15/22 fexofenadine 180 mg tablet 180 mg PO DAILY 01/31/20 12/15/22 (Mary Allergy) multivitamin 1 tablet PO DAILY 01/31/20 12/15/22 albuterol sulfate 90 mcg/actuation 2 puff inhalation Q6H PRN 09/25/21 12/15/22 aerosol inhaler Bronchospasm fluticasone propionate 50 1 spray intranasal DAILY 10/02/21 12/15/22 mcg/actuation nasal spray,suspension olopatadine 0.6 % nasal spray 2 spray intranasal BID 05/31/22 12/15/22 cholecalciferol (vitamin D3) 25 25 mcg PO DAILY 12/15/22 12/15/22 mcg (1,000 unit) capsule Allergies Allergy/AdvReac Type Severity Reaction Status Date / Time Sulfa (Sulfonamide Allergy Intermediate rash Verified 12/26/22 15:58 Antibiotics) grass pollen Allergy sinus Verified 12/26/22 15:58 congestion azithromycin AdvReac Mild Diarrhea Verified 12/26/22 15:58 Review of Systems Review of Systems: CONSTITUTIONAL: Denies fever, chills, or sweats. EYES: Denies visual changes, redness, or discharge. ENT: Denies rhinorrhea, congestion, sore throat, or otalgia. CARDIOVASCULAR: Denies chest pain, palpitations, or edema. RESPIRATORY: Denies cough or dyspnea. GASTROINTESTINAL: Denies abdominal pain, nausea, vomiting, or diarrhea. GENITOURINARY: See HPI SKIN: Denies rash or itching. MUSCULOSKELETAL: Denies back pain, joint pain, or myalgia. NEUROLOGIC: Denies headache, numbness, dizziness, or weakness. PSYCHIATRIC: Denies anxiety or depression. [facility] Past Medical History Medical History (Updated 12/26/22 @ 18:09 by Saravanan Fowler PA-C) Abdominal pain Chest pain Chondromalacia Chronic pain syndrome Gastritis Hiatal hernia History of solitary pulmonary nodule Irritable bowel syndrome Medial meniscus tear Overweight (BMI 25.0-29.9) Polycystic liver disease Right knee pain Right knee pain Surgical History Surgical History Delivery by section H/O total hysterectomy History of major abdominal surgery History of right oophorectomy Family History Family History Father Family history of lung cancer Mother Hypoglycemia Pacemaker Dissection, aorta Social History Social History Smoking status: Never smoker Alcohol intake: current Drinks per week: 1 Alcohol use details: occasional Substance use: never Substance use type: does not use Living arrangements: with family Spiritual care concerns: No Exam Narrative: GENERAL: Well-appearing, well-nourished, and in no acute distress. HEAD: Normocephalic, atraumatic. EYES: PERRLA and EOMI. ENT: Nares clear, no rhinorrhea or epistaxis. Mucous membranes moist. Oropharynx without tonsillar hypertrophy exudate or other lesions. NECK:
[2022-12-26 18:14] LABS: Appearance Urine Clear (Clear); Bilirubin Urine Negative (Negative); Blood Urine Negative (Negative); Color Urine Yellow (Yellow); Glucose Urine UA Negative (Negative); Ketones Urine Negative (Negative); Leukocyte Esterase Ur Negative LEU/UL (Negative); Nitrate Urine Negative (Negative); Protein Urine Negative (Negative); Specific Grav Ur 1.008 (1.001-1.035); Urobilinogen Urine 0.2 mg/dL (<2.0); pH Urine 6.5 (5.0-9.0)
[2022-12-26 18:16] LABS: Basophils Percent Auto 0.4 % (0.2-1.2); Eosinophils Absolute Auto 0.2 K/mm3 (0-0.3); Hematocrit 40.8 % (37.0-47.0); Hemoglobin 13.7 g/dL (12.0-15.0); Immature Granulocyte Absolute 0.02 K/mm3 (0.00-0.031); Immature Granulocyte Percent A 0.3 % (0-0.5); Lymphocytes Absolute Auto 2.35 K/mm3 (0.9-3.2); Mean Corpuscular HGB Conc 33.6 g/dl (32-36); Mean Corpuscular Hemoglobin 29.9 pg (26-34); Mean Corpuscular Volume 89.1 fl (80-100); Mean Platelet Volume 9.9 fl (7.4-10.4); Monocytes Absolute Auto 0.5 K/mm3 (0.1-0.6); Monocytes Percent Auto 6.4 % (2.6-8.5); Neutrophils Absolute Auto 4.3 K/mm3 (1.3-6.7); Neutrophils Percent Auto 58.9 % (45.5-73.1); Platelet Count Result 220 k/mm3 (150-375); Red Blood Count 4.58 M/mm3 (4.2-5.4); Red Cell Distribution Width 12.8 % (11.5-14.5); White Blood Count 7.3 K/mm3 (4.5-10.0)
[2022-12-26 18:21] LABS: Add Urine Microscopic? NO
[2022-12-26 18:38] LABS: Alanine Aminotransferase 34 U/L (6-35); Albumin Level 4.3 g/dL (3.5-5.1); Alkaline Phosphatase 108 U/L (38-126); Anion Gap 7 mmol/L (8-16); Aspartate Amino Transferase 32 U/L (14-36); Bilirubin,Total 0.3 mg/dL (0.2-1.3); Blood Urea Nitrogen 16 mg/dL (7-17); Calcium 8.9 mg/dL (8.4-10.2); Carbon Dioxide 28 mmol/L (22-30); Chloride 104 mmol/L (98-107); Estimated CRCL calculation 71 ml/min; Estimated Glomerular Filt Rate > 60; Glucose 120 mg/dL (65-110); Potassium 3.7 mmol/L (3.4-5.0); Sodium 139 mmol/L (137-145)
== END 2022-12-26 18:27 | disposition home or self-care (01) ==
PROVIDERS: Emergency Provider Physician Assistant; PCP Internal Medicine
DX: B37.31 Acute candidiasis of vulva and vagina (principal); G89.4 Chronic pain syndrome; K58.9 Irritable bowel syndrome, unspecified; E66.3 Overweight; Z68.27 Body mass index [BMI] 27.0-27.9, adult; Q44.6 Cystic disease of liver; Z90.710 Acquired absence of both cervix and uterus; Z90.721 Acquired absence of ovaries, unilateral
CPT/HCPCS: 36415; 80053; 81003; 85025; 99284

== ENCOUNTER 2023-01-17 08:12 | Outpatient (CLI) | payer OTHER, SELFPAY ==
--- NOTE | ~2023-01-17 | MM_ITS ---
EXAMINATION: MM screening cecilia BI w sherry HISTORY: Screening mammogram TECHNIQUE: Craniocaudal and mediolateral oblique 3-D tomosynthesis images were obtained and synthetic 2-D images were generated. CAD analysis was submitted and interpreted. COMPARISON: November 16, 2021, September 16, 2020, September 15, 2019 bilateral screening mammogram examinat ions BREAST PARENCHYMAL COMPOSITION: There are scattered areas of fibroglandular density. FINDINGS: There is no evidence of suspicious mass, calcification, or architectural distortion to sugg est malignancy in either breast. There has been no suspicious interval change. IMPRESSION: 1. No mammographic evidence of malignancy. 2. Recommend routine screening mammography in one year. BI-RADS Category 1: Negative Reviewed, dictated and finalized at location A.
== END 2023-01-17 08:13 | disposition home or self-care (01) ==
LOC: ANHIMG 08:13
PROVIDERS: PCP Internal Medicine; Visit Provider Obstetrics & Gynecology
DX: Z12.31 Encounter for screening mammogram for malignant neoplasm of breast (principal)
CPT/HCPCS: 77063; 77067

== ENCOUNTER 2023-02-28 08:05 | Outpatient (CLI) | payer OTHER, SELFPAY | END 2023-02-28 08:06 | disposition home or self-care (01) | LOC: ANHSURGERY 08:10 | PROVIDERS: PCP Internal Medicine; Visit Provider Obstetrics & Gynecology | DX: N73.6 Female pelvic peritoneal adhesions (postinfective) (principal); Z01.818 Encounter for other preprocedural examination | CPT/HCPCS: 36415; 86850; 86900; 86901 ==

== ENCOUNTER 2023-03-04 02:59 | Day surgery (SDC) | payer OTHER, SELFPAY ==
[2023-02-25 15:28] VITALS: BMI 28.5
--- NOTE | 2023-02-25 15:52 | PC.NURSE ---
Report to the Outpatient Waiting Room, entrance under the green pavilion located off [facility], at time 0630 on date 03/04/23_. Planned Procedure Time: 0830_. Time changes happen often and if your time is changed the preop area will call you the afternoon before. - You and your visitor will be asked to self-screen and do not enter if you have any COVID symptoms. - A mask is optional within the hospital at this time. Patients may have clear liquids (water, carbonated beverages, clear teas, apple juice) until 3 hours prior to surgery with a maximum of 20 ounces. - No food from midnight until time of surgery - Infants may have breast milk until 4 hours before surgery, infant formula 6 hours prior to surgery. - Children will be allowed to drink immediately following surgery. If applicable, please bring a bottle or sippy cup to assist with drinking. Juice, water, soda, and popsicles are readily available. For infants on formula, please bring formula the day of surgery. Pacifiers are allowed. Take the following medications with a SIP of water the morning of surgery: _albuterol, allegra___ DO NOT STOP ANY OF YOUR OTHER PRESCRIPTION MEDICATIONS PRIOR TO SURGERY ?EXCEPT THE FOLLOWING Medications to discontinue per physician vitamins Date to take last dose__03/01/23_ Please no make-up, nail citizen of [place], hairspray, perfume, deodorant, or body powder the day of surgery. No jewelry (including any body piercings) or valuables the day of surgery, leave them at home. Please take a shower or bath the night before, or the morning of, surgery with an antibacterial soap. Wear comfortable, loose fitting clothing. Children are encouraged to wear pajamas. - Jewelry must be removed prior to entering the operating room. Rings and piercings that are not removed may be cut off. - The hospital will not accept responsibility for valuables. - Please leave all valuables, including medications, at home the day of surgery. If you are going home after surgery, a licensed tanker truck driver must drive you home. - NO public transportation without another adult if you receive anesthesia. - We recommend that an adult stay with you for 24 hours following discharge. - We also recommend that you do not drive, make important decision, drink alcoholic beverages, or take any drugs that were not prescribed by your health care provider for at least 24 hours after your discharge time. For Pediatric surgeries, we recommend two adults accompany the child home. Follow any additional instructions given to you from your surgeon. If you or anyone in your household have experienced Covid symptoms in the past week, please notify your surgeon or the nurse liaison at the phone number below for possible testing. Telephone instructions given to _Mansi Jasmine_and asked if any additional questions and then verbalized understanding. Patient advised to call surgeon office or pre surgery nurse liaison [phone] if any additional questions.
--- NOTE | 2023-03-01 16:28 | PM.IMHP ---
H&P: HPI History of Present Illness Date/Time: 03/01/23 16:28 Chief Complaint: pelvic pain Narrative: this is a 52-year-old female status post hysterectomy bilateral salpingo-oophorectomy complaining of severe pelvic pain. She has had a history of severe pelvic adhesions and has had laparoscopic destruction of these adhesions before the past with success. She is admitted for diagnostic laparoscopy expected lysis of adhesions. Risks and benefits reviewed exclusive of , aspiration, bleeding, transfusion, perforation injury to bowel, bladder, ureters, or other internal organs with need for open laparotomy. She received the [employer] handout entitled laparoscopy. She had all questions answered. She has to proceed. [facility] Past Medical History Medical History Abdominal pain Chest pain Chondromalacia Chronic pain syndrome Gastritis Hiatal hernia History of solitary pulmonary nodule Irritable bowel syndrome Medial meniscus tear Overweight (BMI 25.0-29.9) Polycystic liver disease Right knee pain Right knee pain Surgical History Surgical History Delivery by section H/O total hysterectomy History of major abdominal surgery History of right oophorectomy Family History Family History Father Family history of lung cancer Mother Hypoglycemia Pacemaker Dissection, aorta Social History Social History Smoking status: Never smoker Alcohol intake: current Drinks per week: 1 Alcohol use details: occasional Substance use: never Substance use type: does not use Living arrangements: with family Spiritual care concerns: No Meds Home Medications and Allergies Home Medications Medication Instructions Recorded Confirmed Type estradiol 2 mg tablet 2 mg PO DAILY 01/31/20 02/25/23 History fexofenadine 180 mg tablet 180 mg PO DAILY 01/31/20 02/25/23 History (Mary Allergy) multivitamin 1 tablet PO DAILY 01/31/20 02/25/23 History albuterol sulfate 90 mcg/actuation 2 puff inhalation Q6H PRN 09/25/21 02/25/23 History aerosol inhaler Bronchospasm fluticasone propionate 50 1 spray intranasal DAILY 10/02/21 02/25/23 History mcg/actuation nasal spray,suspension olopatadine 0.6 % nasal spray 2 spray intranasal BID 05/31/22 02/25/23 History omeprazole 40 mg capsule,delayed 40 mg PO DAILY #90 caps 06/23/22 02/25/23 Rx release cholecalciferol (vitamin D3) 25 25 mcg PO DAILY 12/15/22 02/25/23 History mcg (1,000 unit) capsule Allergies Allergy/AdvReac Type Severity Reaction Status Date / Time Sulfa (Sulfonamide Allergy Intermediate rash Verified 12/26/22 15:58 Antibiotics) grass pollen Allergy sinus Verified 12/26/22 15:58 congestion azithromycin AdvReac Mild Diarrhea Verified 12/26/22 15:58 Exam Const: General: cooperative, healthy appearing, comfortable and average body habitus Orientation/consciousness: oriented to person, oriented to place and oriented to time HENMT: Head: normal to inspection Resp: Effort & Inspection: normal respiratory effort Cardio: Rate: regular rate Rhythm: regular rhythm Heart sounds: S1 normal heart sound present and S2 normal heart sound present GI: Inspection: normal to inspection Auscultation: normal bowel sounds : External Female Exam: normal external appearance Speculum Exam - Vagina: normal appearance of the vagina Speculum Exam - Cervix: Cervix absent Bimanual exam- vagina & uterus: uterus absent Bimanual Exam- Adnexa, other: tender bilaterally Assessment and Plan Assessment and plan (1) Pelvic pain: Code(s): R10.2 - Pelvic and perineal pain Status: Acute Plan diagnostic laparoscopy lysis of adhesions
--- NOTE | 2023-03-03 08:39 | WPDANESEPPF ---
Anes - Initial Pre Proc Eval Procedure: Operation Date: 03/04/23 08:30 Proposed Procedures p Laparoscopic Lysis of Pelvic Adhesions - Ty Matute MD Date/Time: 03/03/23 08:39 Surgeon: Ty Matute MD Pre Op Diagnosis: Pelvic Adhesions, Pain Patient Data Age: 52 Gender: F Height: 1.73 m Weight: 85 kg Allergies Allergy/AdvReac Type Severity Reaction Status Date / Time Sulfa (Sulfonamide Allergy Intermediate rash Verified 12/26/22 15:58 Antibiotics) grass pollen Allergy sinus Verified 12/26/22 15:58 congestion azithromycin AdvReac Mild Diarrhea Verified 12/26/22 15:58 Home Medications Medication Instructions Recorded Confirmed Type estradiol 2 mg tablet 2 mg PO DAILY 01/31/20 02/25/23 History fexofenadine 180 mg tablet 180 mg PO DAILY 01/31/20 02/25/23 History (Mary Allergy) multivitamin 1 tablet PO DAILY 01/31/20 02/25/23 History albuterol sulfate 90 mcg/actuation 2 puff inhalation Q6H PRN 09/25/21 02/25/23 History aerosol inhaler Bronchospasm fluticasone propionate 50 1 spray intranasal DAILY 10/02/21 02/25/23 History mcg/actuation nasal spray,suspension olopatadine 0.6 % nasal spray 2 spray intranasal BID 05/31/22 02/25/23 History omeprazole 40 mg capsule,delayed 40 mg PO DAILY #90 caps 06/23/22 02/25/23 Rx release cholecalciferol (vitamin D3) 25 25 mcg PO DAILY 12/15/22 02/25/23 History mcg (1,000 unit) capsule hydrocodone 5 mg-acetaminophen 325 1 tablet PO Q4H PRN pain #20 tabs 03/04/23 Rx mg tablet Patient hx anesthesia problems: post op nausea/vomiting Family hx anesthesia problems: none Results Review: All pre-operative results and documents have been reviewed as part of the pre-operative evaluation. [facility] Past Medical History Medical History (Updated 03/03/23 @ 08:40 by Randy Pang DO) Abdominal pain Asthma Chest pain Chondromalacia Chronic pain syndrome Diverticulosis Gastritis GERD (gastroesophageal reflux disease) Hiatal hernia History of solitary pulmonary nodule Irritable bowel syndrome Medial meniscus tear Overweight (BMI 25.0-29.9) Polycystic liver disease Right knee pain Right knee pain Surgical History Surgical History Delivery by section H/O total hysterectomy History of major abdominal surgery History of right oophorectomy Family History Family History Father Family history of lung cancer Mother Hypoglycemia Pacemaker Dissection, aorta Social History Social History Smoking status: Never smoker Alcohol intake: current Drinks per week: 1 Alcohol use details: occasional Substance use: never Substance use type: does not use Living arrangements: with family Spiritual care concerns: No Anes - Eval Final PreProcedure Day of Procedure 03/03/23 08:39 Patient weight: overweight Heart: regular rate and rhythm Lungs: clear to auscultation Airway: Mallampati scale class II Neurological: alert and oriented Last oral intake: >/= 8 hours ASA classification: III Emergent: no Anesthetic plan: proceed Anesthesia type and monitoring: general ETT and standard monitoring Results Review: All pre-operative results and documents have been reviewed as part of the pre-operative evaluation. Informed Consent: The patient's anesthetic plan and its attendant risks and benefits were discussed with the patient/family/POA. Questions were solicited and answers provided to the satisfaction of the patient/family/POA.
[2023-03-04] VITALS (7 sets, daily range): BP systolic 115–156; BP diastolic 56–92; PULSE 50–86; RESP 12–20; TEMP 36.3; O2SAT 98–100
[2023-03-04] MEDS: LACTATED RINGERS 1,000 ML 30 ML IV CONT ×2 (06:55→09:34)
--- NOTE | 2023-03-04 07:17 | WPDHPUPDATE1 ---
History and Physical Update Update Date/Time: 03/04/23 07:17 History and Physical has been reviewed, including an updated exam of the patient. There are NO changes in the patient's condition. Risks, benefits, and alternatives have been discussed and questions answered. Patient agrees to proceed with procedure.
[2023-03-04] MEDS: SCOPOLAMINE 1.5 MG PATCH TRANSDERM (07:42)
[2023-03-04] MEDS: KETOROLAC 15 MG/ML VIAL (*BKC) IV PUSH (07:42)
[2023-03-04] MEDS: ACETAMINOPHEN 500 MG TABLET 1000 MG PO (07:42)
--- NOTE | 2023-03-04 09:27 | W.PM.PROC2 ---
Procedure Note - Detailed Date of Procedure 03/04/23 Pre-op Diagnosis Pelvic Adhesions, Pain Post-op Diagnosis Same Procedure Performed Laparoscopic lysis of adhesions Surgeon Ty Matute MD Anesthesia General Indications this is 52-year-old female with severe pelvic pain history of hysterectomy bilateral salpingo-oophorectomy with noted adhesions Findings absent uterus ovaries tubes. Large amount of omentum stuck to the anterior abdominal Description of Procedure patient was prepped draped in normal sterile fashion placed in dorsal lithotomy position. Under excellent general trach anesthesia weighted speculum placed posterior fornix vagina. Sponge stick placed in vagina and the bladder drained of clear urine. The weighted speculum was gloves were changed. A supraumbilical incision made the Veress needle passed in the. Abdomen filled with CO2 gas [id number] 5mm trocar advanced with the Optiview under direct visualization assuring no injury. Patient placed in Trendelenburg and a left lateral quadrant incision made a 5mm trocar advanced under direct visualization assuring injury. Multiple adhesions were seen anteriorly from the omentum to the anterior abdominal wall these were thick and tortuous. Using intermittent cautery and scissors this was sharply dissected brought off the anterior abdominal. Irrigation was undertaken to completely clear and hemostasis was assured. The vaginal cuff appeared within normal limits and no other abnormalities were seen. Lower site removed. The gas removed from the abdomen. The upper site removed. Incisions closed with 4 Monocryl. Patient went to recovery in satisfactory condition. All sponge, needle, instrument counts were correct. There were no immediate complications Estimated Blood Loss 25 Drains No Packing No Pathology None sent Complications No immediate complications Condition Stable Disposition PACU
[2023-03-04] MEDS: fentaNYL CITRATE INJ (*CRX) 100 MCG/2 ML VIAL 25 MCG IV PUSH ×5 (09:46→10:04)
[2023-03-04] MEDS: oxyCODONE HCL (*CRX) 5 MG TAB IR PO (10:32)
== END 2023-03-04 11:05 | disposition home or self-care (01) ==
PROVIDERS: PCP Internal Medicine; Visit Provider Obstetrics & Gynecology
PROC: (CPT 49320; principal; 2023-03-04 08:30)
DX: N73.6 Female pelvic peritoneal adhesions (postinfective) (principal); R10.2 Pelvic and perineal pain; Z90.710 Acquired absence of both cervix and uterus; J45.909 Unspecified asthma, uncomplicated; K21.9 Gastro-esophageal reflux disease without esophagitis; G89.4 Chronic pain syndrome; Z79.51 Long term (current) use of inhaled steroids; Z79.891 Long term (current) use of opiate analgesic
CPT/HCPCS: 58660; 36415; 86850; 86900; 86901; A9270; J0330; J1100; J1885; J2250; J2405; J2704; J3010; J7120

== ENCOUNTER 2023-06-26 19:41 | Emergency (ER) | payer OTHER, SELFPAY ==
--- NOTE | ~2023-06-26 | CT_ITS ---
EXAMINATION: CT brain wo con DATE: 06/26/2023 21:46 INDICATION: headache change in pattern . TECHNIQUE: Computed tomography (CT) of the head was performed without intravenous contrast. The mA wa s adjusted according to patient size. Iterative reconstruction technique was employed. The dose-lengt h product was 605.33 mGy-cm. COMPARISON: 05/28/2008; MR brain 02/10/2022. FINDINGS: No acute intracranial hemorrhage or extra-axial fluid collection. No hydrocephalus, mass, or herniation. No acute ischemic infarct. Unremarkable dural venous sinus attenuation. No acute osseous abnormality. The aerated spaces are clear. IMPRESSION: No acute intracranial process. Reviewed, dictated and finalized at location K. 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
[2023-06-26 19:53] VITALS: BP 133/82; PULSE 88; RESP 20; TEMP 36.2; O2SAT 100
--- NOTE | 2023-06-26 20:19 | ED.GENADULT ---
HPI - General Adult General Chief complaint: Headache Stated complaint: abd pain/N/V/D/migraine Time Seen by Provider: 06/26/23 20:11 Source: patient Mode of arrival: ambulatory Limitations: no limitations History of Present Illness HPI narrative: This is a 53-year-old female who presents to the ED with chief complaint of migraine headache being around 2:00 a.m. this morning. Reports she has history of ?sinus migraines? but today is not improving with Tylenol or Tylenol Sinus, which is abnormal for her. Reports she also had episode of diarrhea and vomiting today as well. States she has felt congested lately. Denies fevers, chills, neck pain, neck stiffness. She is not on any hormone treatments. Related Data Home Medications Medication Instructions Recorded Confirmed estradiol 2 mg tablet 2 mg PO DAILY 01/31/20 06/17/23 fexofenadine 180 mg tablet 180 mg PO DAILY 01/31/20 06/17/23 (Mary Allergy) multivitamin 1 tablet PO DAILY 01/31/20 06/17/23 albuterol sulfate 90 mcg/actuation 2 puff inhalation Q6H PRN 09/25/21 06/17/23 aerosol inhaler Bronchospasm fluticasone propionate 50 1 spray intranasal DAILY 10/02/21 06/17/23 mcg/actuation nasal spray,suspension olopatadine 0.6 % nasal spray 2 spray intranasal BID 05/31/22 06/17/23 cholecalciferol (vitamin D3) 25 25 mcg PO DAILY 12/15/22 06/17/23 mcg (1,000 unit) capsule Allergies Allergy/AdvReac Type Severity Reaction Status Date / Time Sulfa (Sulfonamide Allergy Intermediate rash Verified 06/06/23 11:38 Antibiotics) grass pollen Allergy sinus Verified 06/06/23 11:38 congestion azithromycin AdvReac Mild Diarrhea Verified 06/06/23 11:38 Review of Systems Review of Systems: All systems as dictated in HPI [facility] Past Medical History Medical History Abdominal pain Asthma Chest pain Chondromalacia Chronic pain syndrome Diverticulosis Gastritis GERD (gastroesophageal reflux disease) Hiatal hernia History of solitary pulmonary nodule Irritable bowel syndrome Medial meniscus tear Overweight (BMI 25.0-29.9) Polycystic liver disease Right knee pain Right knee pain Surgical History Surgical History Delivery by section H/O total hysterectomy History of major abdominal surgery History of right oophorectomy Family History Family History Father Family history of lung cancer Mother Hypoglycemia Pacemaker Dissection, aorta Social History Social History Smoking status: Never smoker Alcohol intake: never Drinks per week: 1 Alcohol use details: occasional Substance use: never Substance use type: does not use Lack of Transportation: No Lack of Food: Never True Current Housing: I Have Housing Concerned About Future Housing: No Difficulty Paying Gas/Electric Bills: No Difficulty Paying for Meds: No Currently Unemployed: No Education: Bachelor's Degree Difficulty w/ Childcare or Family Care: No Living arrangements: with family Spiritual care concerns: No Exam Narrative: GENERAL: Well-appearing, well-nourished, and in no acute distress. HEAD: Normocephalic, atraumatic. EYES: PERRLA and EOMI. Mild photophobia. ENT: Nares clear, no rhinorrhea or epistaxis. Mucous membranes moist. Oropharynx without tonsillar hypertrophy exudate or other lesions. NECK: Supple. No adenopathy or masses. CHEST: No respiratory distress. Clear to auscultation. No wheezes rales or rhonchi HEART: Regular rate and rhythm. No murmur heard. Normal peripheral pulses. ABDOMEN: Soft, nontender, nondistended, normal active bowel sounds. MSK: Normal range of motion. No edema. SKIN: Warm, dry, no rash. NEURO: Alert and oriented x3. No focal deficits. PSYCH: Normal mood and affect. Course
[2023-06-26] MEDS: PROCHLORPERAZINE EDISYLATE 10 MG/2 ML VIAL IV PUSH (20:31)
[2023-06-26] MEDS: SODIUM CHLORIDE 0.9% IV 1,000 ML 999 ML IV CONT (20:31)
[2023-06-26] MEDS: KETOROLAC 15 MG/ML VIAL (*BKC) IV PUSH (20:33)
[2023-06-26] MEDS: diphenhydrAMINE HCl INJ 50 MG/ML VIAL 25 MG IV PUSH (20:34)
[2023-06-26 20:44] LABS: Basophils Percent Auto 0.2 % (0.2-1.2); Eosinophils Percent Auto 0.6 % (0-4.4); Hematocrit 41.6 % (37.0-47.0); Hemoglobin 13.8 g/dL (12.0-15.0); Immature Granulocyte Absolute 0.02 K/mm3 (0.00-0.031); Immature Granulocyte Percent A 0.4 % (0-0.5); Lymphocytes Absolute Auto 0.77 K/mm3 (0.9-3.2); Mean Corpuscular HGB Conc 33.2 g/dl (32-36); Mean Corpuscular Hemoglobin 29.9 pg (26-34); Mean Platelet Volume 10.1 fl (7.4-10.4); Monocytes Absolute Auto 0.3 K/mm3 (0.1-0.6); Monocytes Percent Auto 7.1 % (2.6-8.5); Neutrophils Absolute Auto 3.6 K/mm3 (1.3-6.7); Neutrophils Percent Auto 75.7 % (45.5-73.1); Platelet Count Result 212 k/mm3 (150-375); Red Blood Count 4.62 M/mm3 (4.2-5.4); Red Cell Distribution Width 12.4 % (11.5-14.5); White Blood Count 4.8 K/mm3 (4.5-10.0)
[2023-06-26 20:58] LABS: Alanine Aminotransferase 29 U/L (6-35); Albumin Level 4.3 g/dL (3.5-5.1); Alkaline Phosphatase 89 U/L (38-126); Anion Gap 12 mmol/L (8-16); Aspartate Amino Transferase 40 U/L (14-36); Bilirubin,Total 0.8 mg/dL (0.2-1.3); Blood Urea Nitrogen 12 mg/dL (7-17); Calcium 8.9 mg/dL (8.4-10.2); Carbon Dioxide 21 mmol/L (22-30); Chloride 103 mmol/L (98-107); Estimated CRCL calculation 122 ml/min; Estimated Glomerular Filt Rate > 60; Glucose 99 mg/dL (65-110); Potassium 3.5 mmol/L (3.4-5.0); Sodium 136 mmol/L (137-145)
--- NOTE | 2023-06-26 21:43 | PC.NURSE ---
Patient taken to CT via w/c.
[2023-06-26 22:31] VITALS: BP 145/81; PULSE 60; RESP 17; TEMP 36.4; O2SAT 99
== END 2023-06-26 22:25 | disposition home or self-care (01) ==
PROVIDERS: Emergency Provider Physician Assistant; PCP Internal Medicine
DX: R51.9 Headache, unspecified (principal); J45.909 Unspecified asthma, uncomplicated; G89.4 Chronic pain syndrome; K21.9 Gastro-esophageal reflux disease without esophagitis; K44.9 Diaphragmatic hernia without obstruction or gangrene; K58.9 Irritable bowel syndrome, unspecified; E66.3 Overweight; Z68.28 Body mass index [BMI] 28.0-28.9, adult; Q44.6 Cystic disease of liver; Z90.710 Acquired absence of both cervix and uterus; Z90.721 Acquired absence of ovaries, unilateral
CPT/HCPCS: 36415; 70450; 80053; 85025; 96361; 96374; 96375; 99284; J0780; J1200; J1885; J7030

== ENCOUNTER 2023-08-12 07:09 | Outpatient (CLI) | payer OTHER, SELFPAY ==
--- NOTE | ~2023-08-12 | CT_ITS ---
CT of the Abdomen and Pelvis: Indication: Abdominal pain Technique: 2.5 mm axial scans were obtained through the abdomen and pelvis following intravenous adm inistration of 100 cc of Omnipaque 350. Dose reduction technique was used on this scan by utilizing a utomated exposure control and iterative reconstruction technique. The dose-length product (DLP) was 5 36.78 mGy-cm. COMPARISON: 05/30/2022 Findings: Scans through the lung bases demonstrates stable subcentimeter pleural-based nodule the ri ght middle lobe. Innumerable small hepatic cysts are similar to prior exam. The spleen, pancreas, gallbladder, adrenal s and kidneys are within normal limits. No evidence of aortic aneurysm. No lymphadenopathy. No bowel obstruction or bowel wall thickening. There is no evidence to suggest acute appendicitis. Images through the pelvis were performed. Urinary bladder unremarkable. No pelvic mass seen. No ascit es. Impression: No acute abnormality seen. Innumerable small hepatic cysts, similar to prior exam. Reviewed, dictated and finalized at [facility]. 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 Innumerable small hepatic cysts, similar to prior exam.
== END 2023-08-12 07:10 | disposition home or self-care (01) ==
PROVIDERS: PCP Internal Medicine; Visit Provider Obstetrics & Gynecology
DX: K46.0 Unspecified abdominal hernia with obstruction, without gangrene (principal)
CPT/HCPCS: 74177; Q9967

== ENCOUNTER 2023-08-30 12:14 | Outpatient (CLI) | payer OTHER, SELFPAY ==
[2023-08-30 12:55] LABS: Hematocrit 39.6 % (37.0-47.0); Hemoglobin 13.4 g/dL (12.0-15.0); Mean Corpuscular HGB Conc 33.8 g/dl (32-36); Mean Corpuscular Hemoglobin 29.7 pg (26-34); Mean Corpuscular Volume 87.8 fl (80-100); Mean Platelet Volume 10.2 fl (7.4-10.4); Platelet Count Result 217 k/mm3 (150-375); Red Blood Count 4.51 M/mm3 (4.2-5.4); Red Cell Distribution Width 12.8 % (11.5-14.5); White Blood Count 4.9 K/mm3 (4.5-10.0)
[2023-08-30 13:06] LABS: Erythrocyte Sedimentation Rate 15 mm/hr (0-20)
[2023-08-30 13:07] LABS: Iron 85 ug/dL (37-170)
[2023-08-30 13:09] LABS: Alanine Aminotransferase 22 U/L (6-35); Albumin Level 4.2 g/dL (3.5-5.1); Alkaline Phosphatase 83 U/L (38-126); Anion Gap 8 mmol/L (8-16); Aspartate Amino Transferase 27 U/L (14-36); Bilirubin,Total 0.4 mg/dL (0.2-1.3); Blood Urea Nitrogen 16 mg/dL (7-17); CRP < 0.5 mg/dL (<1.0); Calcium 9.2 mg/dL (8.4-10.2); Carbon Dioxide 24 mmol/L (22-30); Chloride 106 mmol/L (98-107); Estimated Glomerular Filt Rate > 60; Glucose 83 mg/dL (65-110); Potassium 4.2 mmol/L (3.4-5.0); Sodium 138 mmol/L (137-145)
[2023-08-30 13:16] LABS: Percent Iron Saturation 25 % (20-50)
[2023-08-30 14:11] LABS: Folic Acid > 20.0 ng/mL (2.76->20)
[2023-09-02 17:54] LABS: Vitamin D 1,25 (OH)2 Total 51 pg/mL (18-72); Vitamin D2 1,25 (OH)2 <8 pg/mL; Vitamin D3 1,25 (OH)2 51 pg/mL
[2023-09-02 20:04] LABS: Immunoglobulin A 148 mg/dL (47-310); TTG IGA AB <1.0 U/mL (<15.0)
== END 2023-08-30 12:15 | disposition home or self-care (01) ==
LOC: ANHLAB 12:16
PROVIDERS: PCP Internal Medicine; Visit Provider Nurse Practitioner
DX: E55.9 Vitamin D deficiency, unspecified (principal); R19.4 Change in bowel habit; R14.0 Abdominal distension (gaseous); R10.30 Lower abdominal pain, unspecified; R53.83 Other fatigue
CPT/HCPCS: 36415; 80053; 82607; 82652; 82728; 82746; 82784; 83540; 83550; 85027; 85652; 86140; 86364

== ENCOUNTER 2023-09-21 07:00 | Outpatient (NON) | payer OTHER, SELFPAY | END 2023-09-21 07:01 | disposition home or self-care (01) | LOC: ANHLAB 09-22 08:12 | PROVIDERS: PCP Internal Medicine; Visit Provider Internal Medicine Gastroenterology | DX: D12.5 Benign neoplasm of sigmoid colon (principal); K58.9 Irritable bowel syndrome, unspecified | CPT/HCPCS: 88305 ==

== ENCOUNTER 2023-09-21 07:22 | Day surgery (SDC) | payer OTHER, SELFPAY ==
[2023-09-01 08:38] VITALS: BMI 28.4
[2023-09-05 09:15] VITALS: BMI 29.0
[2023-09-21 07:55] VITALS: BP 142/92; PULSE 62; RESP 20; TEMP 36.4; O2SAT 100
--- NOTE | 2023-09-21 08:11 | WPDANESEPPF ---
Anes - Initial Pre Proc Eval Procedure: Operation Date: 09/21/23 09:00 Proposed Procedures p Diagnostic Colonoscopy - Ash Pedroza MD Date/Time: 09/21/23 08:11 Surgeon: Ash Pedroza MD Pre Op Diagnosis: ABD Distension, Low.ABD Pain, Change in Bowel Patient Data Age: 53 Gender: F Height: 1.7 m Weight: 82.3 kg Last Vital Signs Temp 36.4 C 09/21/23 07:55 Pulse 62 09/21/23 07:55 Resp 20 09/21/23 07:55 BP 142/92 H 09/21/23 07:55 Pulse Ox 100 09/21/23 07:55 O2 Del Method Room Air 09/21/23 07:55 Allergies Allergy/AdvReac Type Severity Reaction Status Date / Time Sulfa (Sulfonamide Allergy Intermediate rash Verified 09/21/23 08:02 Antibiotics) grass pollen Allergy sinus Verified 09/21/23 08:02 congestion azithromycin AdvReac Mild Diarrhea Verified 09/21/23 08:02 Home Medications Medication Instructions Recorded Confirmed Type estradiol 2 mg tablet 2 mg PO DAILY 01/31/20 09/21/23 History fexofenadine 180 mg tablet 180 mg PO DAILY 01/31/20 09/05/23 History (Mary Allergy) multivitamin 1 tablet PO DAILY 01/31/20 09/05/23 History albuterol sulfate 90 mcg/actuation 2 puff inhalation Q6H PRN 09/25/21 09/05/23 History aerosol inhaler Bronchospasm fluticasone propionate 50 1 spray intranasal DAILY 10/02/21 09/05/23 History mcg/actuation nasal spray,suspension olopatadine 0.6 % nasal spray 2 spray intranasal BID 05/31/22 09/05/23 History cholecalciferol (vitamin D3) 25 25 mcg PO DAILY 12/15/22 09/05/23 History mcg (1,000 unit) capsule omeprazole 40 mg capsule,delayed 40 mg PO DAILY #90 caps 06/17/23 09/21/23 Rx release methylprednisolone 4 mg tablets in See Rx Instructions PO PER PKG DIR 07/13/23 09/05/23 Rx a dose pack (Medrol (Jayden)) #21 ea dicyclomine 10 mg capsule 10 mg PO .every 6 hours PRN 08/30/23 09/05/23 Rx abdominal pain #30 caps hydrocodone 10 mg-acetaminophen 15 ml PO Q12H PRN Abdominal Pain 08/30/23 09/05/23 History 325 mg/15 mL (15 mL) oral solution rifaximin 550 mg tablet (Xifaxan) 550 mg PO TID 14 days #42 tabs 08/30/23 09/05/23 Rx Patient hx anesthesia problems: none Family hx anesthesia problems: none Results Review: All pre-operative results and documents have been reviewed as part of the pre-operative evaluation. [facility] Past Medical History Medical History Abdominal pain Asthma Bloating Change in bowel habits Chest pain Chondromalacia Chronic pain syndrome Diverticulosis Fatigue Gastritis GERD (gastroesophageal reflux disease) Hiatal hernia History of solitary pulmonary nodule Irritable bowel syndrome Lower abdominal pain Medial meniscus tear Overweight (BMI 25.0-29.9) Polycystic liver disease Right knee pain Right knee pain Surgical History Surgical History Delivery by section H/O total hysterectomy History of major abdominal surgery History of right oophorectomy Family History Family History Father Family history of lung cancer Mother Hypoglycemia Pacemaker Dissection, aorta Social History Social History Smoking status: Never smoker Alcohol intake: current Drinks per week: 1 Alcohol use details: rarely Substance use: never Substance use type: does not use Lack of Transportation: No Lack of Food: Never True Current Housing: I Have Housing Concerned About Future Housing: No Difficulty Paying Gas/Electric Bills: No Difficulty Paying for Meds: No Currently Unemployed: No Education: Bachelor's Degree Difficulty w/ Childcare or Family Care: No Living arrangements: with family Spiritual care concerns: No Anes - Eval Final PreProcedure Day of Procedure 09/21/23 08:11 Patient weight: overweight Heart: regular rate and rhythm Lungs
[2023-09-21] MEDS: LACTATED RINGERS 1,000 ML 150 ML IV CONT (08:13)
--- NOTE | 2023-09-21 08:29 | WPDHPUPDATE1 ---
History and Physical Update Update Date/Time: 09/21/23 08:29 History and Physical has been reviewed, including an updated exam of the patient. There are NO changes in the patient's condition. Risks, benefits, and alternatives have been discussed and questions answered. Patient agrees to proceed with procedure.
[2023-09-21 09:25] VITALS: BP 112/63; PULSE 84; RESP 16; O2SAT 99
[2023-09-21 09:35] VITALS: BP 119/68; PULSE 80; RESP 16; O2SAT 99
[2023-09-21 09:45] VITALS: BP 118/78; PULSE 68; RESP 16; O2SAT 99
--- NOTE | 2023-09-21 09:58 | WPDANESPN ---
Anes - Prog Note Post-Op Date/Time: 09/21/23 09:58 Cardiovascular status: normal Respiratory status: normal Airway patency: baseline Mental status: baseline Post-Op hydration status: normal Vital Signs: Last Vital Signs Temp 36.4 C 09/21/23 07:55 Pulse 62 09/21/23 07:55 Resp 20 09/21/23 07:55 BP 142/92 H 09/21/23 07:55 Pulse Ox 100 09/21/23 07:55 O2 Del Method Room Air 09/21/23 07:55 Pain Score (VAS): 0/10 I/O: Intake & Output 09/20/23 09/21/23 09/21/23 23:59 07:59 15:59 Intake Total 500 Balance 500 Patient Feedback: Patient satisfied with anesthetic care.
== END 2023-09-21 10:05 | disposition home or self-care (01) ==
PROVIDERS: PCP Internal Medicine; Visit Provider Internal Medicine Gastroenterology
PROC: 0DJD8ZZ Inspection of Lower Intestinal Tract, Via Natural or Artificial Opening Endoscopic (ICD-10-PCS; CPT 45378; principal; 2023-09-21 09:00)
DX: R10.84 Generalized abdominal pain (principal); D12.5 Benign neoplasm of sigmoid colon; K64.8 Other hemorrhoids
CPT/HCPCS: 45385; 45380

== ENCOUNTER 2023-10-01 14:00 | Emergency (ER) | payer OTHER, SELFPAY ==
[2023-10-01 14:14] VITALS: BP 105/65; PULSE 79; RESP 16; TEMP 36.2; O2SAT 100
--- NOTE | 2023-10-01 14:21 | ED.FEMALEGU ---
HPI - Female Genitourinary General Chief complaint: Urogenital-Female Stated complaint: UTI SYMPTOMS Time Seen by Provider: 10/01/23 14:21 Source: patient Mode of arrival: ambulatory Limitations: no limitations History of Present Illness HPI Narrative: Delia is a 53-year-old female patient presenting to the today with complaints possible urinary tract infection. She reports she is having burning, frequency, and urgency with urination as well as some pain over her bladder. Recently had a colonoscopy week and half ago and it was normal. Denies any fever, chills, or body aches. Denies any vaginal discharge or concern for any STI Related Data Home Medications Medication Instructions Recorded Confirmed estradiol 2 mg tablet 2 mg PO DAILY 01/31/20 10/01/23 fexofenadine 180 mg tablet 180 mg PO DAILY 01/31/20 10/01/23 (Mary Allergy) multivitamin 1 tablet PO DAILY 01/31/20 10/01/23 albuterol sulfate 90 mcg/actuation 2 puff inhalation Q6H PRN 09/25/21 10/01/23 aerosol inhaler Bronchospasm fluticasone propionate 50 1 spray intranasal DAILY 10/02/21 10/01/23 mcg/actuation nasal spray,suspension olopatadine 0.6 % nasal spray 2 spray intranasal BID 05/31/22 10/01/23 cholecalciferol (vitamin D3) 25 25 mcg PO DAILY 12/15/22 10/01/23 mcg (1,000 unit) capsule Allergies Allergy/AdvReac Type Severity Reaction Status Date / Time Sulfa (Sulfonamide Allergy Intermediate rash Verified 10/01/23 14:16 Antibiotics) grass pollen Allergy sinus Verified 10/01/23 14:16 congestion azithromycin AdvReac Mild Diarrhea Verified 10/01/23 14:16 Review of Systems Review of Systems: Pertinent positives per HPI. Patient denies any fever, chills, rash, headache, visual changes, dizziness, cough, runny nose, sore throat, shortness of breath, chest pain, palpitations, nausea, vomiting, diarrhea, constipation. [facility] Past Medical History Medical History Abdominal pain Asthma Bloating Change in bowel habits Chest pain Chondromalacia Chronic pain syndrome Diverticulosis Fatigue Gastritis GERD (gastroesophageal reflux disease) Hiatal hernia History of solitary pulmonary nodule Irritable bowel syndrome Lower abdominal pain Medial meniscus tear Overweight (BMI 25.0-29.9) Polycystic liver disease Right knee pain Right knee pain Surgical History Surgical History Delivery by section H/O total hysterectomy History of major abdominal surgery History of right oophorectomy Family History Family History Father Family history of lung cancer Mother Hypoglycemia Pacemaker Dissection, aorta Social History Social History Smoking status: Never smoker Alcohol intake: current Drinks per week: 1 Alcohol use details: rarely Substance use: never Substance use type: does not use Lack of Transportation: No Lack of Food: Never True Current Housing: I Have Housing Concerned About Future Housing: No Difficulty Paying Gas/Electric Bills: No Difficulty Paying for Meds: No Currently Unemployed: No Education: Bachelor's Degree Difficulty w/ Childcare or Family Care: No Living arrangements: with family Spiritual care concerns: No Comments At the time of my signature, I reviewed and agree with the nursing past medical, surgical, social, and family history. There is no relevant family history pertinent to the patient complaint. Exam Narrative: General: Well-developed, well nourished, in no apparent distress. Head: Normocephalic, atraumatic. Cardio: Regular rate and rhythm, s1 and s2 normal, no murmur appreciated. Resp: Clear to auscultation bilaterally, no rhonchi, rales, wheezing or rubs. Abdomen: Soft, pliable, bowel sounds present in all quadrant
== END 2023-10-01 14:33 | disposition home or self-care (01) ==
PROVIDERS: Emergency Provider Nurse Practitioner Family; PCP Internal Medicine
DX: R30.0 Dysuria (principal); R35.0 Frequency of micturition; R39.15 Urgency of urination; J45.909 Unspecified asthma, uncomplicated; K21.9 Gastro-esophageal reflux disease without esophagitis; Q44.6 Cystic disease of liver
CPT/HCPCS: 81003; 99212; G0463

== ENCOUNTER 2024-06-01 15:40 | Outpatient (CLI) | payer OTHER, SELFPAY ==
--- NOTE | ~2024-06-01 | MM_ITS ---
EXAMINATION: MM screening cecilia BI w sherry HISTORY: Screening TECHNIQUE: Craniocaudal and mediolateral oblique 3-D tomosynthesis images were obtained and synthetic 2-D images were generated. CAD analysis was submitted and interpreted. COMPARISON: Comparison to multiple prior studies sequentially, with oldest reviewed study dated 05/08. BREAST PARENCHYMAL COMPOSITION: Not dense: There are scattered areas of fibroglandular density. FINDINGS: There is no evidence of suspicious mass, calcification, or architectural distortion to sugg est malignancy in either breast. There has been no suspicious interval change. IMPRESSION: 1. No mammographic evidence of malignancy. 2. Recommend routine screening mammography in one year. BI-RADS Category 1: Negative Reviewed, dictated and finalized at location B.
== END 2024-06-01 15:41 | disposition home or self-care (01) ==
LOC: ANHIMG 15:56
PROVIDERS: PCP Internal Medicine; Visit Provider Obstetrics & Gynecology
DX: Z12.31 Encounter for screening mammogram for malignant neoplasm of breast (principal)
CPT/HCPCS: 77063; 77067

== ENCOUNTER 2024-06-20 06:38 | Outpatient (CLI) | payer OTHER, SELFPAY ==
--- NOTE | ~2024-06-20 | MR_ITS ---
EXAMINATION: MR brain/brain stem wo/w con DATE: 06/20/2024 07:19 INDICATION: Headache, unspecified. TECHNIQUE: Magnetic resonance imaging (MRI) of the brain and brainstem was performed without and with 17 mL MultiHance intravenous contrast. COMPARISON: Brain MRI 02/10/2022, head CT 06/26/2023 FINDINGS: There are two foci of nonspecific increased T2-weighted signal intensity in the cerebral wh ite matter, which is within normal limits for the patient's age. There is no intracranial hemorrhage, acute infarction, or abnormal intracranial mass lesion. The ventricles are normal in size. The orbit s are normal. The paranasal sinuses are clear. The mastoid air cells are normal. IMPRESSION: 1. Normal brain. Reviewed, dictated and finalized at location [] RUMENT ADJUSTER IMPRESSION: 1. Normal brain.
== END 2024-06-20 06:39 | disposition home or self-care (01) ==
PROVIDERS: PCP Internal Medicine; Visit Provider Clinical Nurse Specialist
DX: R51.9 Headache, unspecified (principal); G89.29 Other chronic pain
CPT/HCPCS: 70553; A9577

== ENCOUNTER 2024-11-02 07:08 | Outpatient (CLI) | payer OTHER, SELFPAY ==
--- OUTSIDE RECORDS SUMMARY | 2024-11-02 07:11 | XMS_ITS ---
Author Organization [facility] Address [address] [place] [id number] Care Team Providers Care Auditing Coder Name Role Phone Casey Romero Primary Care Provider Unavailab Juan David Masterson Unavailable [phone] KevinSachin Unavailable [phone] REASON FOR VISIT SCIT - Traditional Schedule Allergy Immunotherapy Medications Medication SIG (Take, Route, Frequency, Duration) Notes Start Date End Date Status FLONASE 50 mcg/inh 1 spray in each nost ril twice a day Active SIT (TRADITIONAL) variable per schedule per schedule for 999 days Active AUVI-Q 0.3 mg as directed intramuscularly once for 30 day(s) Active Albuterol Sulfate HFA 108 (90 Base) MCG/ACT 2 puffs as needed Inhalation every 4 hrs for 30 days Active D3 125 mcg 1 tab(s) orally once a day for 30 day(s) Active Auvi-Q 0.3 MG/0.3ML as directed intramuscularly once for 30 day(s) Active ALBUTEROL (EQV-PROAIR HFA) 90 mcg/inh 2 puff(s) inhaled every 6 hours Not-Taking YE 24 HOUR ALLERGY 180 mg 1 tab(s) orally once a day Active OLOPATADINE HYDROCHLORIDE 665 mcg/inh 2 spray(s) intranasally 2 times a day for 30 days Active ESTRADIOL 2 mg for 90 Not-T aking Multivitamin - 1 tab(s) orally once a day for 30 day(s) Active AEROCHAMBER MDI SPACER - MOUTHPIECE (ADULT) N/A As directed PO Per asthma action plan Active Estradiol 2 MG for 90 Activ e SUMAtriptan Succinate 25 MG TAKE 1 TABLET BY MOUTH 1 TIME AT EARLY ONSET OF MIGRAINE. MAY REPEAT 1 TIME AFTER 2 HOURS NEEDED Oral for 9 Days Active Gabapentin 100 MG Oral for 30 Days Active PNEUMOVAX 23 - 0.5 mL intramuscular ly once for 1 dose(s) 09/28/2022 Active Dicyclomine HCl 20 MG 1 tablet Orally Th ree times a day Active Ye Allergy 180 MG 1 tab(s) orally o nce a day Active Flonase Allergy Relief 50 MCG/ACT 2 sprays in each nostril once a day Active Omeprazole 40 MG 1 cap(s) orally once a day for 30 day(s) Active Olopatadine HCl 0.6 % 2 sprays in each n ostril Nasally Twice a day Active AeroChamber MV - as directed for 30 days Any adult spacer Active Albuterol Sulfate HFA 108 (90 Base) MCG/ACT 1 puff as needed Inhalation every 4 hrs Active Encounters Encounter Location Date Provider Diagnosis [facility] [place] [address] [place] [address] 10/24/2024 Sachin Brown Allergic rhinitis du e to pollen J30.1 ; Other allergic rhinitis J30.89 ; Allergic rhinitis due to animal (cat) (dog) hair and dander J30.81 and Other chronic allergic conjunctivitis H10.45 Assessments Encounter Date Diagnosis (ICD Code) Assessment Notes Treatment Notes Treatment Clinical Notes Section Notes 10/24/2024 Allergic rhinitis due to pollen (ICD-10 - J30.1) 10/24/2024 Other allergic rhinitis (ICD-10 - J30.89) 10/24/2024 Allergic rhinitis due to animal (cat) (dog) hair and dander (ICD-10 - J30.81) 10/24/2024 Other chronic allergic conjunctivitis (ICD-10 - H10.45) Plan Of Treatment Next Appt Details Follow Up: 1 Week, Reason: Provider Name:Sachin Brown , 11/07/2024 04:10:00 PM, [address], [address], [place], [address], Provider Name:Lesia acosta 11/26/2024 04:15:00 PM, [address], [place], [address], Progress Notes * Mansi GALLOWAYDOB:1970 (54 yo F)Acc No.[id number]:10/24/2024 SCIT-Aeroallergen Patient: Mansi MCFADDEN Provider: Jaron Brown MD :1970 A ge:54 Y S ex:Female Date:10/24/2024 Address:[address] [place], [place] [id number] Pcp:Casey Romero Subjective: * Chief Complaints: * S CIT - Traditional Schedule Allergy Immunotherapy * HPI: * Introduction: The patient is here for scheduled immunotherapy. Please see the attached specialty form regarding the specifics of the administration of these vaccines. As per our protocol, they must undergo a screening health questionnaire (medication changes, reaction(s) to last immunotherapy dose(s), current health status, ACT (if appropriate), self-injectable epinephrine on patient(?) and peak flow (if appropriate)). Also, the patient must wait in our office for 30 minutes after receiving the vaccine(s). Furthermore, every patient must have an epinephrine pen (self-injectable) with them at the time of administration--and carry if for the following 1.5 hours after they leave our office. The patient must also have taken their antihistamine the day of the injection, preferably 2 hours prior. The consent form for SCIT (subcutaneous immunotherapy) is on file. * Medical History: * Surgical History: * Hospitalization/Major Diagno stic Procedure: * Medications: T akingALLEGRA 24 HOUR ALLERGY 180 mg tablet 1 tab(s) orally once a day FLONASE 50 mcg/inh spray 1 spray in each nostril twice a day AUVI-Q 0.3 mg kit as directed intramuscularly once SIT (TRADITIONAL) variable see record per schedule per schedule D3 125 mcg tablet 1 tab(s) orally once a day Albuterol Sulfate HFA 108 (90 Base) MCG/ACT Aerosol Solution 2 puffs as needed Inhalation every 4 hrs AeroChamber MV - Miscellaneous as directed Any adult spacerOlopatadine HCl 0.6 % Solution 2 sprays in each nostril Nasally Twice a day Albuterol Sulfate HFA 108 (90 Base) MCG/ACT Aerosol Solution 1 puff as needed Inhalation every 4 hrs Dicyclomine HCl 20 MG Tablet 1 tablet Orally Three times a day PNEUMOVAX 23 - solution 0.5 mL intramuscularly once Flonase Allergy Relief 50 MCG/ACT Suspension 2 sprays in each nostril once a day Ye Allergy 180 MG Tablet 1 tab(s) orally once a day Omeprazole 40 MG Capsule Delayed Release 1 cap(s) orally once a day Multivitamin - Tablet 1 tab(s) orally once a day Estradiol 2 MG Tablet AEROCHAMBER MDI SPACER - MOUTHPIECE (ADULT) N/A Spacer for MDI use As directed PO Per asthma action plan Gabapentin 100 MG Capsule Oral SUMAtriptan Succinate 25 MG Tablet TAKE 1 TABLET BY MOUTH 1 TIME AT EARLY ONSET OF MIGRAINE. MAY REPEAT 1 TIME AFTER 2 HOURS NEEDED Oral Auvi-Q 0.3 MG/0.3ML Solution Auto-injector as directed intramuscularly once OLOPATADINE HYDROCHLORIDE 665 mcg/inh spray 2 spray(s) intranasally 2 times a day Taking YE 24 HOUR ALLERGY 180 mg tablet 1 tab(s) orally once a day Taking FLONASE 50 mcg/inh spray 1 spray in each nostril twice a day Taking AUVI-Q 0.3 mg kit as directed intramuscularly once Taking SIT (TRADITIONAL) variable see record per schedule per schedule Taking D3 125 mcg tablet 1 tab(s) orally once a day Taking Albuterol Sulfate HFA 108 (90 Base) MCG/ACT Aerosol Solution 2 puffs as needed Inhalation every 4 hrs Taking AeroChamber MV - Miscellaneous as directed Any adult spacerTaking Olopatadine HCl 0.6 % Solution 2 sprays in each nostril Nasally Twice a day Taking Albuterol Sulfate HFA 108 (90 Base) MCG/ACT Aerosol Solution 1 puff as needed Inhalation every 4 hrs Taking Dicyclomine HCl 20 MG Tablet 1 tablet Orally Three times a day Taking PNEUMOVAX 23 - solution 0.5 mL intramuscularly once Taking Flonase Allergy Relief 50 MCG/ACT Suspension 2 sprays in each nostril once a day Taking Ye Allergy 180 MG Tablet 1 tab(s) orally once a day Taking Omeprazole 40 MG Capsule Delayed Release 1 cap(s) orally once a day Taking Multivitamin - Tablet 1 tab(s) orally once a day Taking Estradiol 2 MG Tablet Taking AEROCHAMBER MDI SPACER - MOUTHPIECE (ADULT) N/A Spacer for MDI use As directed PO Per asthma action plan Taking Gabapentin 100 MG Capsule Oral Taking SUMAtriptan Succinate 25 MG Tablet TAKE 1 TABLET BY MOUTH 1 TIME AT EARLY ONSET OF MIGRAINE. MAY REPEAT 1 TIME AFTER 2 HOURS NEEDED Oral Taking Auvi-Q 0.3 MG/0.3ML Solution Auto-injector as directed intramuscularly once Taking OLOPATADINE HYDROCHLORIDE 665 mcg/inh spray 2 spray(s) intranasally 2 times a day Not-Taking/PRNESTRADIOL 2 mg tablet ALBUTEROL (EQV-PROAIR HFA) 90 mcg/inh aerosol 2 puff(s) inhaled every 6 hours Not-Taking/PRN ESTRADIOL 2 mg tablet Not-Taking/PRN ALBUTEROL (EQV-PROAIR HFA) 90 mcg/inh aerosol 2 puff(s) inhaled every 6 hours Objective: * Vitals: Assessment: * Assessment: 1. A llergic rhinitis due to pollen - J30.1 (Primary) 2 . O ther allergic rhinitis - J30.89 3 . A llergic rhinitis due to animal (cat) (dog) hair and dander - J30.81 4 . O ther chronic allergic conjunctivitis - H10.45 Plan: * Treatment: * Procedure Codes: 9 5117 IMMUNOTHERAPY INJECTIONS * Follow Up: 1 Week * Billing Information: * Visit Code: * Procedure Codes: 72188 IMMUNOTHERAPY INJECTIONS. * Sign off status: Completed true * Provider: Jaron Brown MD Date: 0 10/24/2024 Generated for Sahil piedra/Anirudh/Myrna on: 0 11/02/2024 07:11 AM CDT History and Physical Notes * HPI (History of Present Illness) Category Sub-Category Detail Notes Category Not es *Introduction The patient is here for scheduled immunotherapy. Please see the attached specialty form regarding the specifics of the administration of these vaccines. As per our protocol, they must undergo a screening health questionnaire (medication changes, reaction(s) to last immunotherapy dose(s), current health status, ACT (if appropriate), self-injectable epinephrine on patient(?) and peak flow (if appropriate)). Also, the patient must wait in our office for 30 minutes after receiving the vaccine(s). Furthermore, every patient must have an epinephrine pen (self-injectable) with them at the time of administration--and carry if for the following 1.5 hours after they leave our office. The patient must also have taken their antihistamine the day of the injection, preferably 2 hours prior. The consent form for SCIT (subcutaneous immunotherapy) is on file.
--- OUTSIDE RECORDS SUMMARY | 2024-11-02 07:11 | XMS_ITS | Clinical Summary ---
Author Organization [facility] [address] [facility] [address] Address [address] [place] [address] Care Team Providers Care Electron Beam Photo Mask Technician Name Role Phone Casey Romero DO Primary Care Provider +1- [phone] Allergies Active Allergy Reactions Criticality Noted Date Comments Prednisone Unknown,Rash Medium 03/06/2018 Sulfa (Sulfonamide Antibiotics) Unknown,Fever,Rash Medium 03/06/2018 Medications estradiol (ESTRACE) 2 mg tablet Take 2 mg by mouth daily. 3 8 Active multivitamin capsule Take 1 capsule by mouth daily. Active fexofenadine (YE) 180 mg tablet Take 180 mg by mouth daily. Active omeprazole (PriLOSEC) 20 mg capsule Take 20 mg by mouth daily. Active minoxidiL 5 % foam Apply topically Active montelukast (SINGULAIR) 10 mg tablet Take 10 mg by mouth nightly Active gabapentin (NEURONTIN) 100 mg capsuleIndicati ons:Neuropathic Pain Take 1 capsule (100 mg total) by mouth 3 (three) times a day 90 capsule 0 Active Active Problems Problem Noted Date Diagnosed Date Other chest pain 03/06/2018 Assessment & Plan (03/06/2018 8:36 AM CDT): Stress test negative for ischemia and CTA thorax shows no aortic dissection. Chest pain was relieved by omeprazole. CT scan shows small hiatal hernia. Observe for now. Continue omeprazole Family history of aortic dissection 03/06/2018 Assessment & Plan (03/06/2018 8:37 AM CDT): In CTA thorax shows normal size aorta. Continue to observe. Blood pressure is normal. Surgical History Surgery Date Site/Laterality Comments SECTION PARTIAL HYSTERECTOMY OVARIAN CYST SURGERY Medical History Medical History Date Comments Sinusitis Acid indigestion Family History Medical History Relation Name Comments Lung cancer Father Relation Name Status Comments Brother Alive Father (Age 45) Mother Alive Sister 1 Alive Sister 2 Alive Social History Tobacco Use Types Packs/Day Years Used Date Smoking Tobacco: Never Smokeless Tobacco: Never Alcohol Use Standard Drinks/Week Comments No 0 (1 standard drink = 0.6 oz pur e alcohol) Personal Safety Answer Date Recorded Getting School Help Needed Not on file 10/21 Comments Unknown Sex and Gender Information Value Date Recorded Sex Assigned at Not on file Legal Sex Female 10:25 PM PROFESSOR OF ASTRONOMY Gender Identity Not on file Sexual Orientation Not on file Obstetrics History Last Filed Vital Signs Vital Sign Reading Time Taken Comments Blood Pressure 126/76 06/23/2020 1:56 PM PROFESSOR OF ASTRONOMY Pulse 86 06/23/2020 1:56 PM PROFESSOR OF ASTRONOMY Temperature 36.8 C (98.3 F) 06/23/2020 1:56 PM PROFESSOR OF ASTRONOMY Respiratory Rate - - Oxygen Saturation 97% 03/06/2018 8:09 AM CDT Inhaled Oxygen Concentration - - Weight 84.8 kg (187 lb) 06/23/2020 1:56 PM PROFESSOR OF ASTRONOMY Height 170.2 cm (5' 7 ) 06/23/2020 1:56 PM PROFESSOR OF ASTRONOMY Body Mass Index 29.29 06/23/2020 1:56 PM PROFESSOR OF ASTRONOMY Plan of Treatment Not on file Insurance [facility] CHO[facility] PLUS [address] CLAIMS [facility] CHO[facility] PLUS [address] CLAIMS Care Teams Electron Beam Photo Mask Technician Relationship Specialty Start Date End Date Casey Romero DO PCP - General Internal Medicine 02/21/18
--- OUTSIDE RECORDS SUMMARY | 2024-11-02 07:11 | XMS_ITS | Clinical Summary ---
Author Organization [facility] Address [address] [place] [address] Care Team Providers Care Pot Puller Name Role Phone Unavailable Primary Care Provider Unavailabl e Social History Tobacco Use Types Packs/Day Years Used Date Smoking Tobacco: Never Assessed Comments Unknown Sex and Gender Information Value Date Recorded Sex Assigned at Not on file Legal Sex Female 5:12 PM CDT Gender Identity Not on file Sexual Orientation Not on file Plan of Treatment Health Maintenance Due Date Last Done Comments Cervical Cancer Screening Pa p Smear (Age 30 to 64) Every 3 Years 1969 Colorectal Cancer Screening Colonoscopy (10 Years) 1969 Annual Physical 1972 Hepatitis C 1987 DTaP, Tdap and Td Vaccines ( 1 - Tdap) 1988 Hepatitis B Vaccines (1 of 3 - 19+ 3-dose series) 1988 Cervical Cancer Screening Pa p with HPV Testing (Age 30 to 64) Every 5 Years 1999 Cervical Cancer Screening with HPV 1999 Mammogram Screening 2009 Zoster Vaccines (1 of 2) 2019 COVID-19 Vaccine (2023-2 5 season) 2024 Influenza Adult (#1) 2024 Meningococcal B Vaccine Aged Out No l onger eligible based on patient's age to complete this topic Meningococcal Vaccine Aged Out No zain reese eligible based on patient's age to complete this topic Pneumococcal Vaccine: Pediat rics (0 to 5 Years) and At-Risk Patients (6 to 64 Years) Aged Out No longer eligible b ased on patient's age to complete this topic RSV Immunizations Under 20 Months Aged Out No longer eligible based on patient's age to complete this topic
--- OUTSIDE RECORDS SUMMARY | 2024-11-02 07:11 | XMS_ITS ---
Author Organization [facility] Address [address] [place] [address] Care Team Providers Care Solar Maintenance Technician Name Role Phone Casey Romero Primary Care Provider Juan David Chakraborty Unavailable [phone] Lesia Blanc Unavailable [phone] REASON FOR VISIT Needs call back from office Encounters Encounter Location Date Provider Diagnosis [address] [address] 10/30/2024 Lesia Blanc Plan Of Treatment Next Appt Details Provider Name:Sachin Brown , 11/07/2024 04:10:00 PM, [address] [employer] [facility], [address], [place], [address], Provider Name:Lesia acosta, 11/26/2024 04:15:00 PM, [address] [employer], [address], [place], [address], Progress Notes * Mansi GALLOWAYDOB:1970 (54 yo F)Acc No.[id number]:10/30/2024 Patient: Mansi MCFADDEN :1970 A ge:54 Y S ex:Female Address:[address] [place] [address], [id number] * true * Date: Generated for Printi ng/Faxing/eTransmitting on: 0 11/02/2024 07:11 AM CDT
--- OUTSIDE RECORDS SUMMARY | 2024-11-02 07:11 | XMS_ITS | Referral Summary ---
Author Organization [facility] [address] [facility] [address] Address [address] [place] [address] Care Team Providers Care Electrolytic Etcher Name Role Phone Casey Romero DO Primary Care Provider +1- [phone] Allergies Active Allergy Reactions Criticality Noted Date [...] Continue to observe. Blood pressure is normal. Social History Tobacco Use Types Packs/Day Years [...] on file Legal Sex Female 10:25 PM AMMONIUM NITRATE NEUTRALIZER Gender Identity Not on file Sexual Orientation Not on file Last Filed Vital Signs Vital Sign Reading Time Taken Comments Blood Pressure 126/76 06/23/2020 1:56 PM AMMONIUM NITRATE NEUTRALIZER Pulse 86 06/23/2020 1:56 PM AMMONIUM NITRATE NEUTRALIZER Temperature 36.8 C (98.3 F) 06/23/2020 1:56 PM AMMONIUM NITRATE NEUTRALIZER Respiratory Rate - - Oxygen Saturation 97% 03/06/2018 8:09 AM CDT Inhaled Oxygen Concentration - - Weight 84.8 kg (187 lb) 06/23/2020 1:56 PM AMMONIUM NITRATE NEUTRALIZER Height 170.2 cm (5' 7 ) 06/23/2020 1:56 PM AMMONIUM NITRATE NEUTRALIZER Body Mass Index 29.29 06/23/2020 1:56 PM AMMONIUM NITRATE NEUTRALIZER Plan of Treatment Not on file Insurance [facility] PLUS [facility] Address: [address] [place] [address] CLAIMS [facility] PLUS [facility] Address: [address] CLAIMS Care Teams Electrolytic Etcher Relationship Specialty Start Date End Date Casey Romero DO PCP - General Internal Medicine 02/21/18
--- OUTSIDE RECORDS SUMMARY | 2024-11-02 07:12 | XMS_ITS ---
Author Organization [facility] Address [address] [place] [address] Care Team Providers Care Merchandise Team Manager Name Role Phone Casey Romero Primary Care Provider Unavailab Juan David Masterson Unavailable [phone] KevinSachin Unavailable [phone] REASON FOR VISIT SCIT - Traditional Schedule Allergy Immunotherapy Medications Medication SIG (Take, Route, Frequency, Duration) Notes Start Date End Date Status OLOPATADINE HYDROCHLORIDE 665 mcg/inh 2 spray(s) intranasally 2 times a day for 30 days Active ESTRADIOL 2 mg for 90 Not-T aking SUMAtriptan Succinate 25 MG TAKE 1 TABLET BY MOUTH 1 TIME AT EARLY ONSET OF MIGRAINE. DECEMBER REPEAT 1 TIME AFTER 2 HOURS NEEDED Oral for 9 Days Active Auvi-Q 0.3 MG/0.3ML as directed intramuscularly once for 30 day(s) Active ALBUTEROL (EQV-PROAIR HFA) 90 mcg/inh 2 puff(s) inhaled every 6 hours Not-Taking Multivitamin - 1 tab(s) orally once a day for 30 day(s) Active Omeprazole 40 MG 1 cap(s) orally once a day for 30 day(s) Active AEROCHAMBER MDI SPACER - MOUTHPIECE (ADULT) N/A As directed PO Per asthma action plan Active Estradiol 2 MG for 90 Activ e Gabapentin 100 MG Oral for 30 Days Active Ye Allergy 180 MG 1 tab(s) orally o nce a day Active Flonase Allergy Relief 50 MCG/ACT 2 sprays in each nostril once a day Active Albuterol Sulfate HFA 108 (90 Base) MCG/ACT 1 puff as needed Inhalation every 4 hrs Active PNEUMOVAX 23 - 0.5 mL intramuscular ly once for 1 dose(s) 09/28/2022 Active Dicyclomine HCl 20 MG 1 tablet Orally Th ree times a day Active SIT (TRADITIONAL) variable per schedule per schedule for 999 days Active Albuterol Sulfate HFA 108 (90 Base) MCG/ACT 2 puffs as needed Inhalation every 4 hrs for 30 days Active D3 125 mcg 1 tab(s) orally once a day for 30 day(s) Active Olopatadine HCl 0.6 % 2 sprays in each n ostril Nasally Twice a day Active AeroChamber MV - as directed for 30 days Any adult spacer Active FLONASE 50 mcg/inh 1 spray in each nost ril twice a day Active YE 24 HOUR ALLERGY 180 mg 1 tab(s) orally once a day Active AUVI-Q 0.3 mg as directed intramuscularly once for 30 day(s) Active Encounters Encounter Location Date Provider Diagnosis [facility] [place] [address] [facility] [facility] [address] [place] [address] 10/31/2024 Sachin Brown Allergic rhinitis du e to pollen J30.1 ; Other allergic rhinitis J30.89 ; Allergic rhinitis due to animal (cat) (dog) hair and dander J30.81 and Other chronic allergic conjunctivitis H10.45 Assessments Encounter Date Diagnosis (ICD Code) Assessment Notes Treatment Notes Treatment Clinical Notes Section Notes 10/31/2024 Allergic rhinitis due to pollen (ICD-10 - J30.1) 10/31/2024 Other allergic rhinitis (ICD-10 - J30.89) 10/31/2024 Allergic rhinitis due to animal (cat) (dog) hair and dander (ICD-10 - J30.81) 10/31/2024 Other chronic allergic conjunctivitis (ICD-10 - H10.45) Plan Of Treatment Next Appt Details Follow Up: 1 Week, Reason: Provider Name:Sachin Brown , 11/07/2024 04:10:00 PM, [address] [employer], [address], [place], [address], Provider Name:Lesia acosat, 11/26/2024 04:15:00 PM, [address] [employer], [address], [place], [address], Progress Notes * Mansi GALLOWAYDOB:1970 (54 yo F)Acc No.[id number]:10/31/2024 SCIT-Aeroallergen Patient: Mansi MCFADDEN Provider: Jaron Brown MD :1970 A ge:54 Y S ex:Female Date:10/31/2024 Address:[address] [place], [place] [address] Pcp:Casey Romero Subjective: * Chief Complaints: * [...] Information: * Visit Code: * Procedure Codes: 08177 IMMUNOTHERAPY INJECTIONS. * Sign off status: Completed true * Provider: Jaron Brown MD Date: 0 10/31/2024 Generated for Sahil piedra/Anirudh/Myrna on: 0 11/02/2024 [...]
--- OUTSIDE RECORDS SUMMARY | 2024-11-02 07:12 | XMS_ITS | Clinical Summary ---
Author Organization [facility] Address [address] [place] [address] Care Team Providers Care Engine Specialist Name Role Phone Casey Romero DO Primary Care Provider +1- [phone] Source Comments [facility],non-owned Affiliates and Associated Physician Practices is amultiple site organization consisting of ambulatory clinics and hospital sitesin [place], [place], [place] and [place]. This disclosure is being madepursuant to the Care Everywhere program and may not contain all information available regarding this patient. Last updated 18.[facility] Allergies Active Allergy Reactions Criticality Noted Date Comments Allergy Fever,Rash,Unknown Medium 03/06/2018 Azithromycin Diarrhea 07/20/2024 Pollen Extract Other 07/20/2024 Sinus congestion Sulfa Drugs Rash,Fever Medium 03/27/2018 Medications * Be aware that medications may not be up to date on this document. Alwaysverify current medications with the patient. Medication Sig Dispensed Refills Start Date End Date Status estradiol (ESTRACE) 2 MG tablet Take 1 (one) tablet by mouth once daily Active Fexofenadine HCl (YE PO) Active OMEPRAZOLE PO Active Multiple Vitamin (MULTI VITAMIN PO) Active vitamin D3 (Cholecalciferol) 25 MCG (1000 UNITS) tablet Take 1 (one) tablet by mouth once daily Active fluticasone propionate (Flonase) 50 MCG/ACT nasal spray [place] 2 (two) sprays into each nostril Active olopatadine (Pataday) 0.1 % ophthalmic solution Instill 1 (one) drop into both eyes 2 times daily Active dicyclomine (Bentyl) 10 MG capsule Take 1 (one) capsule by mouth 4 times daily Active albuterol-ipratropiu m (Combivent Respimat) 20-100 MCG/ACT inhaler Inhale 1 (one) puff by mouth 4 times daily Active gabapentin (Neurontin) 100 MG capsuleIndications:S inus headache,Tension headache,Migraine without aura and without status migrainosus, not intractable Take 2 (two) capsules by mouth at bedtime 60 capsule 5 07/20/2024 Active SUMAtriptan (Imitrex) 25 MG tabletIndications:Mi graine without aura and without status migrainosus, not intractable Take 1 tab by mouth once at first sign of migraine. May repeat one time after 2 hours if needed. 9 tablet 5 07/20/2024 Active Family History Medical History Relation Name Comments Cancer - Lung Father Other - Cardiac Mother Migraine Sister Relation Name Status Comments Father Mother Alive Sister Alive Social History Tobacco Use Types Packs/Day Years Used Date Smoking Tobacco: Never Smokeless Tobacco: Never Alcohol Use Standard Drinks/Week Comments Yes 0 (1 standard drink = 0.6 oz pur e alcohol) socially Sex and Gender Information Value Date Recorded Sex Assigned at Not on file Gender Identity Not on file Sexual Orientation Not on file Last Filed Vital Signs Vital Sign Reading Time Taken Comments Blood Pressure 131/64 07/20/2024 8:58 AM FOREIGN SERVICE OFFICER Pulse 63 07/20/2024 8:58 AM FOREIGN SERVICE OFFICER Temperature 36.8 C (98.2 F) 10/17/2018 5:10 PM CDT Respiratory Rate 16 10/17/2018 5:10 PM CDT Oxygen Saturation 98% 07/20/2024 8:58 AM FOREIGN SERVICE OFFICER Inhaled Oxygen Concentration - - Weight 88.5 kg (195 lb) 07/20/2024 8:58 AM FOREIGN SERVICE OFFICER Height 172.7 cm (5' 8 ) 10/17/2018 5:10 PM CDT Body Mass Index 29.65 10/17/2018 5:10 PM CDT Plan of Treatment Upcoming Encounters Date Type Department Care Team (Late st Contact Info) Description 11/19/2024 8:00 AM CDT Office Visit [facility] - [facility], [place] [address] Jamil Delgado, SAFETY PERSON-PBX OPERATOR [address] [place] [address] [place] [address] Health Maintenance Due Date Last Done Comments COLOGUARD (AGES 45-75) - COL ON CA SCREENING 1969 COLON MONITORING 1969 COLONOSCOPY - COLON CA SCREENING 1969 CT COLONOGRAPHY - COLON CA SCREENING 1969 Colorectal Cancer Screening 1969 FIT - COLON CA SCREENING 1969 FLEX SIG - COLON CA SCREENING 1969 LIPID TESTING 1969 MAMMOGRAM 1969 HIV SCREENING 1984 HEPATITIS C SCREENING 05/13/1987 DTAP/TDAP/TD VACCINES (1 - Tdap) 1988 HEPATITIS B VACCINE (1 of 3 - 19+ 3-dose series) 1988 PAP SMEAR 11/03/2001 11/03/1998, 08/27/1997 PNEUMOCOCCAL VACCINE 50+ (1 of 1 - PCV) 2019 ZOSTER VACCINE (1 of 2) 2019 COVID-19 VACCINE (1 - 2023-2 5 season) 2024 INFLUENZA VACCINE (#1) 2024 DEPRESSION SCREENING 08/08/2024 HIB VACCINE Aged Out No longer eligi ble based on patient's age to complete this topic HPV VACCINE Aged Out No longer eligi ble based on patient's age to complete this topic MENINGOCOCCAL (Group B) VACCINE SHARED DECISION-MAKING Aged Out No longer eligible based on patient's age to complete this topic MENINGOCOCCAL GROUPS A/C/Y/W VACCINE Aged Out No longer eligible b ased on patient's age to complete this topic Procedures Procedure Name Priority Date/Time Associated Diagnosis Comments CYTOLOGY SMEAR PAP JERONIMO 11/03/1998 10 :42 AM FOREIGN SERVICE OFFICER from Last 3 Months or Most Recently Relevant to Health Maintenance Results * CYTOLOGY SMEAR PAP (11/03/1998 10:42 AM FOREIGN SERVICE OFFICER) Result CASE NUMBER [id number] Comment: ORDERING PHYSICIAN JUSTIN KUMAR SPECIMEN TYPE PAP Smear Date 11/03/1998 Procedure Cervical/Endocervical, 2 smears received Specimen Adequacy Satisfactory for Evaluation but Limited No endocervical component in a non-atrophic cervical smear. Categorization Within Normal Limits Snomed. 11/06/1998 1503 <1> Continuous Improvement Director Marcin Toscano(ASCP) PAP Footnote The PAP smear is only a screening procedure to aid in the detection of cervical cancer and its precursors. It is not a diagnostic procedure and should not be used as the sole means to detect cervical cancer. Both false negative and false positive results have been experienced. MISCELLANEOUS SAMPLES / Unknown 11/03/1998 10:42 AM FOREIGN SERVICE OFFICER 11/04/1998 10:42 AM FOREIGN SERVICE OFFICER Historical Provider LAB - PATHOLOGY/C YTOLOGY ORDERABLES from Last 3 Months or Most Recently Relevant to Health Maintenance Care Teams Engine Specialist Relationship Specialty Start Date End Date Casey Romero DO [address] [place] [id number] PCP - General Internal Medicine 07/04/24
== END 2024-11-02 07:09 | disposition home or self-care (01) ==
LOC: ANHLAB 07:09
PROVIDERS: PCP Internal Medicine; Visit Provider Obstetrics & Gynecology
DX: Z01.812 Encounter for preprocedural laboratory examination (principal); R10.30 Lower abdominal pain, unspecified
CPT/HCPCS: 36415; 86850; 86900; 86901

== ENCOUNTER 2024-11-09 00:09 | Day surgery (SDC) | payer OTHER, SELFPAY ==
[2024-11-01 15:51] VITALS: BMI 29.8
--- NOTE | 2024-11-01 15:58 | PC.NURSE ---
Report to the Outpatient Waiting Room, entrance under the green pavilion located off [facility], at time _0800_ on date _[id number]_. Planned Procedure Time: _1000_.? Time changes happen often and if your time is changed the preop area will call you the afternoon before. - You and your visitor will be asked to self-screen and do not enter if you have any COVID symptoms. Please call surgeon if you need to reschedule. - A mask is optional within the hospital at this time. Patients may have clear liquids (water, carbonated beverages, clear teas, apple juice) until 3 hours prior to surgery with a maximum of 20 ounces. - No food from midnight until time of surgery and no smoking, or chewing tobacco (or any form of nicotine). No chewing gum, candy or mints. Take only the following medications with a SIP of water on the morning of surgery: __Olopatadine spray, Flonase spray and if needed Hydrocodone. DO NOT STOP ANY OF YOUR OTHER PRESCRIPTION MEDICATIONS PRIOR TO SURGERY EXCEPT THE FOLLOWING Hold all vitamins and supplements for 3 days per anesthesiologist. Medications to discontinue per physician Date to take last [phone]___ Please no make-up, nail ukrainian, hairspray, perfume, deodorant, or body powder the day of surgery.? No jewelry (including any body piercings) or valuables the day of surgery, leave them at home.? Please take a shower or bath the night before, or the morning of, surgery with an antibacterial soap.? Wear comfortable, loose fitting clothing.? - Jewelry must be removed prior to entering the operating room.? Rings and piercings that are not removed may be cut off. - The hospital will not accept responsibility for valuables.? - Please leave all valuables, including medications, at home the day of surgery. If you are going home after surgery, a licensed regional flatbed truck driver must drive you home.? - NO public transportation without another adult if you receive anesthesia. - We recommend that an adult stay with you for 24 hours following discharge. - We also recommend that you do not drive, make important decision, drink alcoholic beverages, or take any drugs that were not prescribed by your health care provider for at least 24 hours after your discharge time. Follow any additional instructions given to you from your surgeon. Telephone instructions given to __Amy__and asked if any additional questions and then verbalized understanding. Patient advised to call surgeon office or pre surgery nurse liaison [phone] if any additional questions.
--- NOTE | 2024-11-07 07:05 | PM.IMHP ---
H&P: HPI History of Present Illness Date/Time: 11/07/24 07:05 Chief Complaint: Pelvic pain Narrative: 54-year-old female with severe pelvic pain history of pelvic adhesions. Pain is severe. She has had multiple laparoscopies for lysis of adhesions in past which have been helpful she understands this may not be helpful may make things worse risks and benefits reviewed in great detail. She had all questions answered. She asked to proceed. Review of Systems Review of Systems: Pertinent positives per HPI. Patient denies any fever, chills, rash, headache, visual changes, dizziness, cough, runny nose, sore throat, shortness of breath, chest pain, palpitations, nausea, vomiting, diarrhea, constipation. [facility] Past Medical History Medical History Fatigue Bloating Lower abdominal pain Change in bowel habits GERD (gastroesophageal reflux disease) Diverticulosis Asthma Chondromalacia Right knee pain Medial meniscus tear Right knee pain Overweight (BMI 25.0-29.9) Hiatal hernia Gastritis Abdominal pain Chronic pain syndrome Chest pain Irritable bowel syndrome Polycystic liver disease History of solitary pulmonary nodule Surgical History Surgical History Delivery by section H/O total hysterectomy History of major abdominal surgery History of right oophorectomy Family History Family History Father Family history of lung cancer Mother Hypoglycemia Pacemaker Dissection, aorta Social History Social History Smoking status: Never smoker Alcohol intake: current Drinks per week: 1 Alcohol use details: rarely Substance use: never Substance use type: does not use Lack of Transportation: No Lack of Food: Never True Current Housing: I Have Housing Concerned About Future Housing: No Difficulty Paying Gas/Electric Bills: No Difficulty Paying for Meds: No Currently Unemployed: No Education: Bachelor's Degree Difficulty w/ Childcare or Family Care: No Living arrangements: with family Spiritual care concerns: No Meds Home Medications and Allergies Home Medications ?Medication ?Instructions ?Recorded ?Confirmed ?Type estradiol 2 mg tablet 2 mg PO DAILY 01/31/20 11/01/24 History fexofenadine 180 mg tablet 180 mg PO DAILY 01/31/20 11/01/24 History (Mary Allergy) multivitamin 1 tablet PO DAILY 01/31/20 11/01/24 History albuterol sulfate 90 mcg/actuation 2 puff inhalation Q6H PRN 09/25/21 11/01/24 History aerosol inhaler Bronchospasm fluticasone propionate 50 1 spray intranasal DAILY 10/02/21 11/01/24 History mcg/actuation nasal spray,suspension olopatadine 0.6 % nasal spray 2 spray intranasal BID 05/31/22 11/01/24 History dicyclomine 10 mg capsule 10 - 20 mg (1 - 2 x 10 mg) PO 10/06/23 11/01/24 Rx .every 6 hours abdominal pain #120 caps omeprazole 40 mg capsule,delayed See Rx Instructions .Route 06/18/24 11/01/24 Rx release .COMPLEX #90 caps cholecalciferol (vitamin D3) 25 25 mcg PO DAILY 11/01/24 11/01/24 History mcg (1,000 unit) capsule (Vitamin D3) gabapentin 100 mg capsule 200 mg PO HS 11/01/24 11/01/24 History hydrocodone 5 mg-acetaminophen 325 1 tablet PO Q6-8H PRN pain 11/01/24 11/01/24 History mg tablet sumatriptan succinate 25 mg tablet 25 mg PO Q2H PRN migraine headache 11/01/24 11/01/24 History Allergies Allergy/AdvReac Type Severity Reaction Status Date / Time Sulfa (Sulfonamide Allergy Intermediate rash Verified 11/01/24 15:47 Antibiotics) grass pollen Allergy sinus Verified 11/01/24 15:47 congestion azithromycin AdvReac Mild Diarrhea Verified 11/01/24 15:47 Exam Const: General: cooperative, healthy appearing, comfortable and overweight Orientation/consciousness: oriented to person, oriented to place and oriented to time HENMT: Head: normal to inspection Resp: Effort & Inspection: normal respiratory effort Cardio: Rate: regular rate Rhythm: regular rhythm Heart sounds: S1 normal heart sound present and S2 normal heart sound present GI: Inspection: normal to inspection Auscultation: normal bowel sounds : External Female Exam: normal external appearance Speculum Exam - Vagina: normal appearance of the vagina Speculum Exam - Cervix: Cervix absent Bimanual exam- vagina & uterus: uterus absent Bimanual Exam- Adnexa, other: tender bilaterally Assessment and Plan Assessment and plan (1) Pelvic pain: Code(s): R10.2 - Pelvic and perineal pain Status: Acute Plan Proceed with diagnostic laparoscopy lysis of adhesions
[2024-11-09] VITALS (11 sets, daily range): BP systolic 112–141; BP diastolic 60–76; PULSE 49–81; RESP 10–20; TEMP 36.2; O2SAT 98–100
--- OUTSIDE RECORDS SUMMARY | 2024-11-09 00:12 | XMS_ITS | Clinical Summary ---
Author Organization [facility] Address [address] [place] [address] Care Team Providers Care Nurse Rn Bsn Name Role Phone Casey Romero DO Primary Care Provider +1- [phone] Source Comments [facility],non-owned Affiliates and Associated Physician Practices is amultiple site organization consisting of ambulatory clinics and hospital sitesin [place], [place], [place] and [place]. This disclosure is being madepursuant to the Care Everywhere program and may not contain all information available regarding this patient. Last updated 18.[facility] Allergies Active Allergy Reactions Criticality Noted Date [...] fluticasone propionate (Flonase) 50 MCG/ACT nasal spray Wortham 2 (two) sprays into each nostril Active [...] Comments Blood Pressure 131/64 07/20/2024 8:58 AM CHANGE NUMBER OPERATOR Pulse 63 07/20/2024 8:58 AM CHANGE NUMBER OPERATOR Temperature 36.8 C (98.2 F) 10/17/2018 5:10 PM CDT Respiratory Rate 16 10/17/2018 5:10 PM CDT Oxygen Saturation 98% 07/20/2024 8:58 AM CHANGE NUMBER OPERATOR Inhaled Oxygen Concentration - - Weight 88.5 kg (195 lb) 07/20/2024 8:58 AM CHANGE NUMBER OPERATOR Height 172.7 cm (5' 8 ) 10/17/2018 5:10 PM CDT Body Mass Index 29.65 10/17/2018 5:10 PM CDT Plan of Treatment Upcoming Encounters Date Type Department Care Team (Late st Contact Info) Description 11/19/2024 8:00 AM CDT Office Visit [facility] [facility], [place] [address] Jamil Delgado, MEDICAL RECORDS ADMINISTRATOR-CIGAR PACKING EXAMINER [address] [place] [address] [place] [address] Health Maintenance Due Date Last Done Comments [...] VACCINE (1 - 2023-2 5 season) 2024 DEPRESSION SCREENING 08/08/2024 INFLUENZA VACCINE (Season Ended) 2025 HIB VACCINE Aged Out No longer eligi [...] SMEAR PAP JERONIMO 11/03/1998 10 :42 AM CHANGE NUMBER OPERATOR from Last 3 Months or Most Recently Relevant to Health Maintenance Results * CYTOLOGY SMEAR PAP (11/03/1998 10:42 AM CHANGE NUMBER OPERATOR) Result CASE NUMBER [id number] Comment: ORDERING PHYSICIAN JUSTIN KUMAR SPECIMEN TYPE PAP Smear Date 11/03/1998 Procedure Cervical/Endocervical, 2 smears received Specimen Adequacy Satisfactory for Evaluation but Limited No endocervical component in a non-atrophic cervical smear. Categorization Within Normal Limits Snomed. 11/06/1998 1503 <1> Managed Services Consultant Marcin Toscano(ASCP) PAP Footnote The PAP smear is only a screening procedure to aid in the detection of cervical cancer and its precursors. It is not a diagnostic procedure and should not be used as the sole means to detect cervical cancer. Both false negative and false positive results have been experienced. MISCELLANEOUS SAMPLES / Unknown 11/03/1998 10:42 AM CHANGE NUMBER OPERATOR 11/04/1998 10:42 AM CHANGE NUMBER OPERATOR Historical Provider LAB - PATHOLOGY/C YTOLOGY ORDERABLES from Last 3 Months or Most Recently Relevant to Health Maintenance Care Teams Nurse Rn Bsn Relationship Specialty Start Date End Date Casey Romero DO [address] [place] [address] PCP - General Internal Medicine 07/04/24
--- OUTSIDE RECORDS SUMMARY | 2024-11-09 00:12 | XMS_ITS ---
Author Organization [facility] Address [address] [place] [address] Care Team Providers Care Zyglo Technician Name Role Phone Casey Romero Primary Care Provider Unavailab Juan David Masterson Unavailable [phone] KevinSachin Unavailable [phone] REASON FOR VISIT SCIT - Traditional Schedule Allergy Immunotherapy Medications Medication SIG (Take, Route, Frequency, Duration) Notes Start Date End Date Status Auvi-Q 0.3 MG/0.3ML as directed intramuscularly once for 30 day(s) Active OLOPATADINE HYDROCHLORIDE 665 mcg/inh 2 spray(s) intranasally 2 times a day for 30 days Active ALBUTEROL (EQV-PROAIR HFA) 90 mcg/inh 2 puff(s) inhaled every 6 hours Not-Taking SUMAtriptan Succinate 25 MG TAKE 1 TABLET BY MOUTH 1 TIME AT EARLY ONSET OF MIGRAINE. MAY REPEAT 1 TIME AFTER 2 HOURS NEEDED Oral for 9 Days Active ESTRADIOL 2 mg for 90 Not-T aking Omeprazole 40 MG 1 cap(s) orally once a day for 30 day(s) Active Multivitamin - 1 tab(s) orally once a day for 30 day(s) Active Estradiol 2 MG for 90 Activ e AEROCHAMBER MDI SPACER - MOUTHPIECE (ADULT) N/A As directed PO Per asthma action plan Active Gabapentin 100 MG Oral for 30 Days Active PNEUMOVAX 23 - 0.5 mL intramuscular ly once for 1 dose(s) 09/28/2022 Active Flonase Allergy Relief 50 MCG/ACT 2 sprays in each nostril once a day Active Ye Allergy 180 MG 1 tab(s) orally o nce a day Active Albuterol Sulfate HFA 108 (90 Base) MCG/ACT 1 puff as needed Inhalation every 4 hrs Active Dicyclomine HCl 20 MG 1 tablet Orally Th ree times a day Active AeroChamber MV - as directed for 30 days Any adult spacer Active Olopatadine HCl 0.6 % 2 sprays in each n ostril Nasally Twice a day Active SIT (TRADITIONAL) variable per schedule per schedule for 999 days Active D3 125 mcg 1 tab(s) orally once a day for 30 day(s) Active Albuterol Sulfate HFA 108 (90 Base) MCG/ACT 2 puffs as needed Inhalation every 4 hrs for 30 days Active AUVI-Q 0.3 mg as directed intramuscularly once for 30 day(s) Active YE 24 HOUR ALLERGY 180 mg 1 tab(s) orally once a day Active FLONASE 50 mcg/inh 1 spray in each nost ril twice a day Active Encounters Encounter Location Date Provider Diagnosis [facility] [place] [facility] [address] [place] [address] 11/07/2024 Sachin Brown Allergic rhinitis du e to pollen J30.1 ; Other allergic rhinitis J30.89 ; Allergic rhinitis due to animal (cat) (dog) hair and dander J30.81 and Other chronic allergic conjunctivitis H10.45 Assessments Encounter Date Diagnosis (ICD Code) Assessment Notes Treatment Notes Treatment Clinical Notes Section Notes 11/07/2024 Allergic rhinitis due to pollen (ICD-10 - J30.1) 11/07/2024 Other allergic rhinitis (ICD-10 - J30.89) 11/07/2024 Allergic rhinitis due to animal (cat) (dog) hair and dander (ICD-10 - J30.81) 11/07/2024 Other chronic allergic conjunctivitis (ICD-10 - H10.45) Plan Of Treatment Next Appt Details Follow Up: 1 Week, Reason: Provider Name:Lesia acosta, 11/26/2024 04:15:00 PM, [address] [employer], [address], [place], [address], Progress Notes * Moo GALLOWAY:1970 (54 yo F)Acc No.[id number]:11/07/2024 SCIT-Aeroallergen Patient: Mansi MCFADDEN Provider: Jaron Brown MD :1970 A ge:54 Y S ex:Female Date:11/07/2024 Address:[address] [place], [place] [address] Pcp:Casey Romero Subjective: * Chief Complaints: * [...] Information: * Visit Code: * Procedure Codes: 67880 IMMUNOTHERAPY INJECTIONS. * Sign off status: Completed true * Provider: Jaron Brown MD Date: 0 11/07/2024 Generated for Sahil piedra/Anirudh/Hughitting on: 0 11/09/2024 12:11 AM CDT History and Physical Notes * [...]
--- OUTSIDE RECORDS SUMMARY | 2024-11-09 00:12 | XMS_ITS | Referral Summary ---
Author Organization [facility] [address] [facility] [address] Address [address] [place] [address] Care Team Providers Care Rnfa Name Role Phone Casey Romero DO Primary Care Provider +1- [phone] Allergies Active Allergy Reactions Criticality Noted Date [...] on file Legal Sex Female 10:25 PM CIVIL SERVICE CLERK Gender Identity Not on file Sexual Orientation Not on file Last Filed Vital Signs Vital Sign Reading Time Taken Comments Blood Pressure 126/76 06/23/2020 1:56 PM CIVIL SERVICE CLERK Pulse 86 06/23/2020 1:56 PM CIVIL SERVICE CLERK Temperature 36.8 C (98.3 F) 06/23/2020 1:56 PM CIVIL SERVICE CLERK Respiratory Rate - - Oxygen Saturation 97% 03/06/2018 8:09 AM CDT Inhaled Oxygen Concentration - - Weight 84.8 kg (187 lb) 06/23/2020 1:56 PM CIVIL SERVICE CLERK Height 170.2 cm (5' 7 ) 06/23/2020 1:56 PM CIVIL SERVICE CLERK Body Mass Index 29.29 06/23/2020 1:56 PM CIVIL SERVICE CLERK Plan of Treatment Not on file Insurance [facility] CHO[facility] PL[facility] CLAIMS [facility] CHOICE PLUS Member Subscriber Plan / Payer (Ef fective 2019-Present) Name:Mansi Jasmine Relation to Subscriber:Self Name:Mansi Jasmine Payer ID:[id number] (NAIC) Type:[facility] H[facility]/PPO Address: [address] CLAIMS Care Teams Rnfa Relationship Specialty Start Date End Date Casey Romero DO PCP - General Internal Medicine 02/21/18
--- OUTSIDE RECORDS SUMMARY | 2024-11-09 00:12 | XMS_ITS | Clinical Summary ---
Author Organization [facility] [address] [facility] [address] Address [address] [place] [address] Care Team Providers Care Supervisor Fish Processing Name Role Phone Casey Romero DO Primary Care Provider +1- [phone] Allergies Active Allergy Reactions Criticality Noted Date [...] on file Legal Sex Female 10:25 PM GUM MACHINE FILLER Gender Identity Not on file Sexual Orientation Not on file Obstetrics History Last Filed Vital Signs Vital Sign Reading Time Taken Comments Blood Pressure 126/76 06/23/2020 1:56 PM GUM MACHINE FILLER Pulse 86 06/23/2020 1:56 PM GUM MACHINE FILLER Temperature 36.8 C (98.3 F) 06/23/2020 1:56 PM GUM MACHINE FILLER Respiratory Rate - - Oxygen Saturation 97% 03/06/2018 8:09 AM CDT Inhaled Oxygen Concentration - - Weight 84.8 kg (187 lb) 06/23/2020 1:56 PM GUM MACHINE FILLER Height 170.2 cm (5' 7 ) 06/23/2020 1:56 PM GUM MACHINE FILLER Body Mass Index 29.29 06/23/2020 1:56 PM GUM MACHINE FILLER Plan of Treatment Not on file Insurance [facility] CHO[facility] PLUS [address] CLAIMS [facility] CHOICE PLUS [address] CLAIMS Care Teams Supervisor Fish Processing Relationship Specialty Start Date End Date Casey Romero DO PCP - General Internal Medicine 02/21/18
--- OUTSIDE RECORDS SUMMARY | 2024-11-09 00:12 | XMS_ITS ---
Author Organization [facility] Address [address] [place] [address] Care Team Providers Care Team Assistant Name Role Phone Casey Romero Primary Care Provider Juan David Chakraborty Unavailable [phone] Lesia Blanc Unavailable [phone] REASON FOR VISIT Needs call back from office Encounters Encounter Location Date Provider Diagnosis [address] [address] 10/30/2024 Lesia Blanc Plan Of Treatment Next Appt Details Provider Name:Lesia acosta, 11/26/2024 04:15:00 PM, [address] [facility], [address], [address], Progress Notes * Mansi GALLOWAYDOB:1970 (54 yo F)Acc No.[id number]:10/30/2024 Patient: Mansi MCFADDEN :1970 A ge:54 Y S ex:Female Address:[address] [place] [address], [address] * true * Date: Generated for Printi ng/Faxing/eTransmitting on: 0 11/09/2024 12:11 AM CDT
--- OUTSIDE RECORDS SUMMARY | 2024-11-09 00:12 | XMS_ITS | Clinical Summary ---
Author Organization [facility] Address [address] [place] [address] Care Team Providers Care Verification Rep Name Role Phone Unavailable Primary Care Provider [...]
--- OUTSIDE RECORDS SUMMARY | 2024-11-09 00:12 | XMS_ITS ---
Author Organization [facility] Address [address] [place] [address] Care Team Providers Care Php Developer Name Role Phone Casey Romero Primary Care Provider Unavailab Juan David Masterson Unavailable [phone] KevinSachin Unavailable [phone] REASON FOR VISIT SCIT - Traditional Schedule [...] Active Encounters Encounter Location Date Provider Diagnosis [facility] [place] [address] [place] [address] 10/31/2024 Sachin Brown Allergic rhinitis du e [...] Provider Name:Lesia acosta, 11/26/2024 04:15:00 PM, [address], [address], [place], [address], Progress Notes * Moo GALLOWAY:1970 (54 yo F)Acc No.[id number]:10/31/2024 SCIT-Aeroallergen Patient: Mansi MCFADDEN Provider: Jaron Brown MD :1970 A ge:54 Y S ex:Female Date:10/31/2024 Address:[address] [place], [place] [address] Pcp:Casey Romero Subjective: * Chief Complaints: * [...] Information: * Visit Code: * Procedure Codes: 04027 IMMUNOTHERAPY INJECTIONS. * Sign off status: Completed true * Provider: Jaron Brown MD Date: 0 10/31/2024 Generated for Sahil piedra/Anirudh/Hughitting on: 0 11/09/2024 [...]
--- NOTE | 2024-11-09 06:35 | WPDHPUPDATE1 ---
History and Physical Update Update Date/Time: 11/09/24 06:35 History and Physical has been reviewed, including an updated exam of the patient. There are NO changes in the patient's condition. Risks, benefits, and alternatives have been discussed and questions answered. Patient agrees to proceed with procedure.
[2024-11-09] MEDS: LACTATED RINGERS 1,000 ML 30 ML IV CONT ×2 (08:30→10:57)
[2024-11-09] MEDS: KETOROLAC 15 MG/ML VIAL (*BKC) IV PUSH (09:00)
[2024-11-09] MEDS: ACETAMINOPHEN 500 MG TABLET 1000 MG PO (09:00)
[2024-11-09] MEDS: SCOPOLAMINE 1 MG PATCH 1 PATCH TRANSDERM (09:35)
--- NOTE | 2024-11-09 09:35 | P.PNAN_ITS ---
Anes - Initial Pre Proc Eval Procedure: Operation Date: 11/09/24 10:00 Proposed Procedures p Diagnostic Laparoscopy with Lysis of Adhesions - Ty Matute MD Date/Time: 11/09/24 09:35 Surgeon: Ty Matute MD Pre Op Diagnosis: pelvic pain, pelvic adhensions Patient Data Age: 54 Gender: F Height: 1.73 m Weight: 88.5 kg Last Vital Signs Temp 97.1 F L 11/09/24 08:30 Pulse 61 11/09/24 08:30 Resp 16 11/09/24 08:30 BP 141/72 H 11/09/24 08:30 Pulse Ox 98 11/09/24 08:30 O2 Del Method Room Air 11/09/24 08:30 Allergies Allergy/AdvReac Type Severity Reaction Status Date / Time Sulfa (Sulfonamide Allergy Intermediate rash Verified 11/01/24 15:47 Antibiotics) grass pollen Allergy sinus Verified 11/01/24 15:47 congestion azithromycin AdvReac Mild Diarrhea Verified 11/01/24 15:47 Home Medications ?Medication ?Instructions ?Recorded ?Confirmed ?Type estradiol 2 mg tablet 2 mg PO DAILY 01/31/20 11/01/24 History fexofenadine 180 mg tablet 180 mg PO DAILY 01/31/20 11/01/24 History (Mary Allergy) multivitamin 1 tablet PO DAILY 01/31/20 11/01/24 History albuterol sulfate 90 mcg/actuation 2 puff inhalation Q6H PRN 09/25/21 11/01/24 History aerosol inhaler Bronchospasm fluticasone propionate 50 1 spray intranasal DAILY 10/02/21 11/09/24 History mcg/actuation nasal spray,suspension olopatadine 0.6 % nasal spray 2 spray intranasal BID 05/31/22 11/09/24 History dicyclomine 10 mg capsule 10 - 20 mg (1 - 2 x 10 mg) PO 10/06/23 11/01/24 Rx .every 6 hours abdominal pain #120 caps omeprazole 40 mg capsule,delayed See Rx Instructions .Route 06/18/24 11/01/24 Rx release .COMPLEX #90 caps cholecalciferol (vitamin D3) 25 25 mcg PO DAILY 11/01/24 11/01/24 History mcg (1,000 unit) capsule (Vitamin D3) gabapentin 100 mg capsule 200 mg PO HS 11/01/24 11/01/24 History hydrocodone 5 mg-acetaminophen 325 1 tablet PO Q6-8H PRN pain 11/01/24 11/01/24 History mg tablet sumatriptan succinate 25 mg tablet 25 mg PO Q2H PRN migraine headache 11/01/24 11/01/24 History hydrocodone 5 mg-acetaminophen 325 1 tablet PO Q4H PRN pain #20 tabs 11/09/24 Rx mg tablet Patient hx anesthesia problems: none Family hx anesthesia problems: none Results Review: All pre-operative results and documents have been reviewed as part of the pre- operative evaluation. [facility] Past Medical History Medical History Fatigue Bloating Lower abdominal pain Change in bowel habits GERD (gastroesophageal reflux disease) Diverticulosis Asthma Chondromalacia Right knee pain Medial meniscus tear Right knee pain Overweight (BMI 25.0-29.9) Hiatal hernia Gastritis Abdominal pain Chronic pain syndrome Chest pain Irritable bowel syndrome Polycystic liver disease History of solitary pulmonary nodule Surgical History Surgical History Delivery by section H/O total hysterectomy History of major abdominal surgery History of right oophorectomy Family History Family History Father Family history of lung cancer Mother Hypoglycemia Pacemaker Dissection, aorta Social History Social History Smoking status: Never smoker Alcohol intake: current Drinks per week: 1 Alcohol use details: rarely Substance use: never Substance use type: does not use Lack of Transportation: No Lack of Food: Never True Current Housing: I Have Housing Concerned About Future Housing: No Difficulty Paying Gas/Electric Bills: No Difficulty Paying for Meds: No Currently Unemployed: No Education: Bachelor's Degree Difficulty w/ Childcare or Family Care: No Living arrangements: with family Spiritual care concerns: No Anes - Eval Final PreProcedure Day of Procedure 11/09/24 09:35 Patient weight: overweight Lungs: normal air movement Airway: Mallampati scale class II and special considerations (L upper incisor is capped. ) Neurological: alert and oriented Last oral intake: >/= 8 hours ASA classification: II Emergent: no Anesthetic plan: proceed Anesthesia type and monitoring: general GIVS and standard monitoring Results Review: All pre-operative results and documents have been reviewed as part of the pre- operative evaluation. RAD stable of recent. Overall active no cp or sob w walking the neighborhood/1- 2 fos. 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 Informed Consent: The patient's anesthetic plan and its attendant risks and benefits were discussed with the patient/family/POA. Questions were solicited and answers provided to the satisfaction of the patient/family/POA.
--- NOTE | 2024-11-09 10:16 | W.PM.PROC2 ---
Procedure Note - Detailed Date of Procedure 11/09/24 Pre-op Diagnosis pelvic pain, pelvic adhensions Post-op Diagnosis Same Procedure Performed Laparoscopic lysis of adhesions Surgeon Ty Matute MD Anesthesia General Indications This is a 54-year-old status post hysterectomy bowel salpingo-oophorectomy with suspected pelvic adhesions and severe pelvic pain Findings Absent uterus ovaries and tubes. Large amount of omental adhesions to the anterior abdominal wall in the vagina. Description of Procedure Patient was prepped draped normal sterile fashion placed in dorsal lithotomy position. Under excellent general trach anesthesia weighted speculum placed posterior fornix. Sponge stick was placed in the vagina uterine manipulation. The bladder was drained of clear urine with a Hobbs catheter and the gloves were changed. A supraumbilical incision made the Veress needle passed in the abdomen. Abdomen filled with CO2 gas [id number]. The 5mm trocar advanced under direct visualization assuring no injury. Patient placed in Trendelenburg and a suprapubic incision made to the left. Multiple adhesions were seen. Using the Endo Keren with sharp dissection and occasional cautery the adhesions were brought down and the vigorously irrigated. Hemostasis was assured the pelvis appeared virtually clean by that point. Photo documentation was undertaken. The lower sites removed. The upper site removed the incisions closed with 4 Monocryl glue. Patient went recovery in satisfactory condition. All sponge, needle, instrument counts were correct. There were no immediate complications Estimated Blood Loss 5 Drains No Packing No Pathology None sent Complications No immediate complications Condition Stable Disposition PACU
[2024-11-09] MEDS: oxyCODONE HCL (*CRX) 5 MG TAB IR PO (12:07)
== END 2024-11-09 12:51 | disposition home or self-care (01) ==
PROVIDERS: PCP Internal Medicine; Visit Provider Obstetrics & Gynecology
PROC: (CPT 49320; principal; 2024-11-09 10:00)
DX: N73.6 Female pelvic peritoneal adhesions (postinfective) (principal); K21.9 Gastro-esophageal reflux disease without esophagitis; J45.909 Unspecified asthma, uncomplicated; K58.9 Irritable bowel syndrome, unspecified; Q44.6 Cystic disease of liver; G89.4 Chronic pain syndrome; Z79.51 Long term (current) use of inhaled steroids; Z79.891 Long term (current) use of opiate analgesic; Z98.890 Other specified postprocedural states; Z90.710 Acquired absence of both cervix and uterus; Z87.42 Personal history of other diseases of the female genital tract; Z87.19 Personal history of other diseases of the digestive system; Z80.1 Family history of malignant neoplasm of trachea, bronchus and lung; Z82.49 Family history of ischemic heart disease and other diseases of the circulatory system
CPT/HCPCS: 58660; A9270; J1100; J1885; J2250; J2405; J2704; J3010; J7120

== ENCOUNTER 2024-11-17 08:51 | Emergency (ER) | payer OTHER, SELFPAY ==
[2024-11-17 08:53] VITALS: BP 141/63; PULSE 69; RESP 16; TEMP 36.6; O2SAT 98
--- OUTSIDE RECORDS SUMMARY | 2024-11-17 08:53 | XMS_ITS ---
Author Organization [facility] Address [address] [place] [address] Care Team Providers Care Sandwich Peddler Name Role Phone Casey Romero Primary Care Provider UnavailJuan David Antoine Unavailable [phone] Sachin Brown Unavailable [phone] REASON FOR VISIT SCIT (Aeroallergen) Encounters Encounter Location Date Provider Diagnosis [facility] [address] [facility] [address] [place] [address] 11/14/2024 Sachin Brown Plan Of Treatment Next Appt Details Provider Name:Lesia acosta, 11/26/2024 04:15:00 PM, [address] [employer], [address], [place], [address], Progress Notes * Mansi GALLOWAYDOB:1970 (54 yo F)Acc No.[id number]:11/14/2024 SCIT-Aeroallergen Patient: Mansi MCFADDEN Provider: Jaron Brown MD :1970 A ge:54 Y S ex:Female Date:11/14/2024 Address:[address] [place], [place] [address] Pcp:Casey Romero Subjective: * Chief Complaints: * 1 . SCIT (Aeroallergen). * Medical History: Objective: * Vitals: Assessment: Plan: * Treatment: * Billing Information: * Visit Code: * Procedure Codes: * Electronic signature of Patr ick Win , MD, FAAAAI on 11/17/2024 at 08:53 AM CDT Sign off status: Pending * Provider: Jaron Brown MD Date: 0 11/14/2024 Generated for Sahil piedra/Anirudh/Myrna on: 0 11/17/2024 08:53 AM CDT
--- OUTSIDE RECORDS SUMMARY | 2024-11-17 08:53 | XMS_ITS | Clinical Summary ---
Author Organization [facility] Address [address] [place] [address] Care Team Providers Care Rn Quality Name Role Phone Unavailable Primary Care Provider [...] Vaccines (1 of 2) 2019 COVID-19 Vaccine ( - 2023-2 5 season) 2024 Meningococcal B Vaccine Aged Out No [...]
--- OUTSIDE RECORDS SUMMARY | 2024-11-17 08:53 | XMS_ITS ---
Author Organization [facility] Address [address] [place] [address] Care Team Providers Care Chief Ultrasound Technologist Name Role Phone Casey Romero Primary Care Provider Unavailab Juan David Masterson Unavailable [phone] KevinSachin Unavailable [phone] REASON FOR VISIT SCIT - Traditional Schedule [...] Active Encounters Encounter Location Date Provider Diagnosis [facility] [place] [address] [employer] [facility] [address] [place] [address] 11/07/2024 Sachin Brown Allergic rhinitis du e [...] Provider Name:Lesia acosta, 11/26/2024 04:15:00 PM, [address] [employer], [address], [place], [address], Progress Notes * Moo GALLOWAY:1970 (54 yo F)Acc No.[id number]:11/07/2024 SCIT-Aeroallergen Patient: Mansi MCFADDEN Provider: Jaron Brown MD :1970 A ge:54 Y S ex:Female Date:11/07/2024 Address:[address] [place], [place] [address] Pcp:Casey Romero Subjective: * Chief Complaints: * [...] Information: * Visit Code: * Procedure Codes: 80324 IMMUNOTHERAPY INJECTIONS. * Sign off status: Completed true * Provider: Jaron Brown MD Date: 0 11/07/2024 Generated for Sahil piedra/Anirudh/Hughitting on: 0 11/17/2024 08:53 AM CDT History and Physical Notes * [...]
--- OUTSIDE RECORDS SUMMARY | 2024-11-17 08:53 | XMS_ITS | Clinical Summary ---
Author Organization [facility] [address] [facility] 162 Address [address] [place] [address] Care Team Providers Care Inventory Control Planner Name Role Phone Casey Romero DO Primary Care Provider +1- [phone] Allergies Active Allergy Reactions Criticality Noted Date [...] on file Legal Sex Female 10:25 PM CORPORATE CONTROLLER Gender Identity Not on file Sexual Orientation Not on file Obstetrics History Last Filed Vital Signs Vital Sign Reading Time Taken Comments Blood Pressure 126/76 06/23/2020 1:56 PM CORPORATE CONTROLLER Pulse 86 06/23/2020 1:56 PM CORPORATE CONTROLLER Temperature 36.8 C (98.3 F) 06/23/2020 1:56 PM CORPORATE CONTROLLER Respiratory Rate - - Oxygen Saturation 97% 03/06/2018 8:09 AM CDT Inhaled Oxygen Concentration - - Weight 84.8 kg (187 lb) 06/23/2020 1:56 PM CORPORATE CONTROLLER Height 170.2 cm (5' 7 ) 06/23/2020 1:56 PM CORPORATE CONTROLLER Body Mass Index 29.29 06/23/2020 1:56 PM CORPORATE CONTROLLER Plan of Treatment Not on file Insurance [facility] CHOICE PLUS [address] CLAIMS [facility] CHOICE PLUS [address] CLAIMS Care Teams Inventory Control Planner Relationship Specialty Start Date End Date Casey Romero DO PCP - General Internal Medicine 02/21/18
--- OUTSIDE RECORDS SUMMARY | 2024-11-17 08:53 | XMS_ITS | Referral Summary ---
Author Organization [facility] [place] [address] [facility] [address] Address [address] [place] [address] Care Team Providers Care Spectrograph Operator Name Role Phone Casey Romero DO Primary Care Provider [phone] Allergies Active Allergy Reactions Criticality Noted Date [...] on file Legal Sex Female 10:25 PM COMPUTER FORENSICS EXAMINER Gender Identity Not on file Sexual Orientation Not on file Last Filed Vital Signs Vital Sign Reading Time Taken Comments Blood Pressure 126/76 06/23/2020 1:56 PM COMPUTER FORENSICS EXAMINER Pulse 86 06/23/2020 1:56 PM COMPUTER FORENSICS EXAMINER Temperature 36.8 C (98.3 F) 06/23/2020 1:56 PM COMPUTER FORENSICS EXAMINER Respiratory Rate - - Oxygen Saturation 97% 03/06/2018 8:09 AM CDT Inhaled Oxygen Concentration - - Weight 84.8 kg (187 lb) 06/23/2020 1:56 PM COMPUTER FORENSICS EXAMINER Height 170.2 cm (5' 7 ) 06/23/2020 1:56 PM COMPUTER FORENSICS EXAMINER Body Mass Index 29.29 06/23/2020 1:56 PM COMPUTER FORENSICS EXAMINER Plan of Treatment Not on file Insurance [facility] CHOICE PLUS CLAIMS [facility] CHO[facility] PLUS Member Subscriber Plan / Payer (Ef fective 2019-Present) Name:Mansi Jasmine Relation to Subscriber:Self Name:Mansi Jasmine Payer ID:[id number] (NAIC) Type[facility] H[facility]PPO Address: [address] CLAIMS Care Teams Spectrograph Operator Relationship Specialty Start Date End Date Casey Romero DO PCP - General Internal Medicine 02/21/18
--- OUTSIDE RECORDS SUMMARY | 2024-11-17 08:54 | XMS_ITS ---
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 Name Role Phone Casey Romero Primary Care Provider Unavailab Juan David Masterson Unavailable [phone] KevinSachin Unavailable [phone] REASON FOR VISIT SCIT - Traditional Schedule [...] Active Encounters Encounter Location Date Provider Diagnosis [facility] [place] [facility] [address] [place] [address] 10/31/2024 Sachin Brown Allergic rhinitis du e [...] Provider Name:Lesia acosta, 11/26/2024 04:15:00 PM, [address], [place], [address], Progress Notes * Moo GALLOWAY:1970 (54 yo F)Acc No.[id number]:10/31/2024 SCIT-Aeroallergen Patient: Mansi MCFADDEN Provider: Jaron Brown MD :1970 A ge:54 Y S ex:Female Date:10/31/2024 Address:[address] [place], [place] [address] Pcp:Casey Romero Subjective: * Chief Complaints: * [...] Information: * Visit Code: * Procedure Codes: 04528 IMMUNOTHERAPY INJECTIONS. * Sign off status: Completed true * Provider: Jaron Brown MD Date: 0 10/31/2024 Generated for Sahil piedra/Anirudh/Hughitting on: 0 11/17/2024 [...]
--- OUTSIDE RECORDS SUMMARY | 2024-11-17 08:54 | XMS_ITS | Clinical Summary ---
Author Organization [facility] Address [address] [place] [address] Care Team Providers Care Logger All Round Name Role Phone Casey Romero DO Primary Care Provider [phone]- [phone] Source Comments [facility],non-owned Affiliates and Associated Physician Practices is amultiple site organization consisting of ambulatory clinics and hospital sitesin [place], [place], [place] and [place]. This disclosure is being madepursuant to the Care Everywhere program and may not contain all information available regarding this patient. Last updated 18.[facility] [employer] Allergies Active Allergy Reactions Criticality Noted Date Comments Allergy Fever,Rash,Unknown Medium 03/06/2018 Azithromycin Diarrhea 07/20/2024 Pollen Extract Other 07/20/2024 Sinus congestion Sulfa Drugs Rash,Fever Medium 03/27/2018 Medications * Be aware that medications may not be up to date on this document. Alwaysverify current medications with the patient. estradiol (ESTRACE) 2 MG tablet Take 1 (one) tablet by mouth once daily Active Fexofenadine HCl (YE PO) Active OMEPRAZOLE PO Active Multiple Vitamin (MULTI VITAMIN PO) Active vitamin D3 (Cholecalciferol ) 25 MCG (1000 UNITS) tablet Take 1 (one) tablet by mouth once daily Active fluticasone propionate (Flonase) 50 MCG/ACT nasal spray [place] 2 (two) sprays into each nostril Active olopatadine (Pataday) 0.1 % ophthalmic solution Instill 1 (one) drop into both eyes 2 times daily Active dicyclomine (Bentyl) 10 MG capsule Take 1 (one) capsule by mouth 4 times daily Active albuterol-ipratr opium (Combivent Respimat) 20-100 MCG/ACT inhaler Inhale 1 (one) puff by mouth 4 times daily Active gabapentin (Neurontin) 100 MG capsuleIndicatio ns:Sinus headache,Tension headache,Migrain e without aura and without status migrainosus, not intractable Take 2 (two) capsules by mouth at bedtime 60 capsule 5 Active SUMAtriptan (Imitrex) 25 MG tabletIndication s:Migraine without aura and without status migrainosus, not intractable Take 1 tab by mouth once at first sign of migraine. May repeat one time after 2 hours if needed. 9 tablet 5 Active Encounters Date Type Department Care Team Description 11/15/2024 Travel from Last 3 Months Family History Medical History Relation Name Comments Cancer - Lung Father Other - Cardiac Mother Migraine Sister Relation Name Status Comments Father Mother Alive Sister Alive Social History Tobacco Use Types Packs/Day Years Used Date Smoking Tobacco: Never Smokeless Tobacco: Never Alcohol Use Standard Drinks/Week Comments Yes 0 (1 standard drink = 0.6 oz pur e alcohol) socially Comments No Sex and Gender Information Value Date Recorded Sex Assigned at Not on file Legal Sex Female 6:18 AM AGRICULTURAL CHEMIST Gender Identity Not on file Sexual Orientation Not on file Last Filed Vital Signs Vital Sign Reading Time Taken Comments Blood Pressure 131/64 07/20/2024 8:58 AM AGRICULTURAL CHEMIST Pulse 63 07/20/2024 8:58 AM AGRICULTURAL CHEMIST Temperature 36.8 C (98.2 F) 10/17/2018 5:10 PM CDT Respiratory Rate 16 10/17/2018 5:10 PM CDT Oxygen Saturation 98% 07/20/2024 8:58 AM AGRICULTURAL CHEMIST Inhaled Oxygen Concentration - - Weight 88.5 kg (195 lb) 07/20/2024 8:58 AM AGRICULTURAL CHEMIST Height 172.7 cm (5' 8 ) 10/17/2018 5:10 PM CDT Body Mass Index 29.65 10/17/2018 5:10 PM CDT Plan of Treatment Upcoming Encounters Date Type Department Care Team (Late st Contact Info) Description 01/16/2025 4:00 PM CDT Office Visit [facility] - Neurology [address] [place] [address], [place] [phone] Jamil Delgado, RESISTOR 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&C 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 [address] [facility] [place] [address] Health Maintenance Due Date Last Done Comments [...] VACCINE (1 of 2) 2019 COVID-19 VACCINE ( - 2023-2 5 season) 2024 DEPRESSION SCREENING [...] SMEAR PAP JERONIMO 11/03/1998 10 :42 AM AGRICULTURAL CHEMIST from Last 3 Months or Most Recently Relevant to Health Maintenance Results * CYTOLOGY SMEAR PAP (11/03/1998 10:42 AM AGRICULTURAL CHEMIST) Result CASE NUMBER [id number] Comment: ORDERING PHYSICIAN JUSTIN KUMAR SPECIMEN TYPE PAP Smear Date 11/03/1998 Procedure Cervical/Endocervical, 2 smears received Specimen Adequacy Satisfactory for Evaluation but Limited No endocervical component in a non-atrophic cervical smear. Categorization Within Normal Limits Snomed. 11/06/1998 1503 <1> Custom Ski Maker Marcin Toscano(ASCP) PAP Footnote The PAP smear is only a screening procedure to aid in the detection of cervical cancer and its precursors. It is not a diagnostic procedure and should not be used as the sole means to detect cervical cancer. Both false negative and false positive results have been experienced. MISCELLANEOUS SAMPLES / Unknown 11/03/1998 10:42 AM AGRICULTURAL CHEMIST 11/04/1998 10:42 AM AGRICULTURAL CHEMIST Historical Provider LAB - PATHOLOGY/CYTOLOGY ORDERABLES Final Result from Last 3 Months or Most Recently Relevant to Health Maintenance Insurance [facility] * Guarantor: MANSI JASMINE Account Type Relation to Patient Date of Phone Billing Address Personal/Family Spouse Care Teams Logger All Round Relationship Specialty Start Date End Date Casey Romero DO [address] [place] [address] PCP - General Internal Medicine 07/04/24
--- OUTSIDE RECORDS SUMMARY | 2024-11-17 08:54 | XMS_ITS | Patient Health Record ---
Author Organization [facility] Address [address] [place] [id number] Care Team Providers Care Helmet Coverer Name Role Phone Casey Romero Primary Care Provider Unavailab Juan David Masterson Unavailable [phone] Sachin Brown Unavailable [phone] Lesia Blanc Unavailable [phone] [employer], Provider Unavailable Unavailab petra Allergies Allergen (clinical drug ingredient) Drug/Non Drug Allergy documented on EMR Reaction Allergy Type Onset Date Status predniSONE rash Drug Allergy Active Sulfamethoxazole rash Drug Allergy Active Results Component Value Reference Range Notes -Immunoglobulins A/G/M, Qn, Ser Reviewed date:06/11/2024 11:48:47 AM Interpretation:Normal Performing Lab:[facility] [place], [address] [place] [id number], Phone - [phone], Director - PhDAngelica Notes/Report: Immunoglobulin G, Qn, Serum 549 493-0649 mg/d L Immunoglobulin A, Qn, Serum 151 87-352 mg/dL Immunoglobulin M, Qn, Serum 139 26-217 mg/dL -Vitamin D, 25-Hydroxy Reviewed date:06/07/2024 12:38:29 PM Interpretation:Normal Performing Lab:[facility] [place], [address] [place] [id number], Phone - [phone], Director - PhDRictamarai Notes/Report: Vitamin D, 25-Hydroxy 32.4 30.0-100.0 ng/mL Vitamin D deficiency has been defined by the [place] [employer] and an Endocrine Society practice guideline as a level of serum 25-OH vitamin D less than 20 ng/mL (1,2). The Endocrine Society went on to further define vitamin D insufficiency as a level between 21 and 29 ng/mL (2). 1. IOM ([place] [employer]). 2010. Dietary reference intakes for calcium and D. [place]: The National Academies Press. 2. Yusuf MF, Rosalia WERNER, Zuri LOUISE, et al. Evaluation, treatment, and prevention of vitamin D deficiency: an Endocrine Society clinical practice guideline. JCEM. 2010; 96(7):1911-30. -Haemophilus influenzae B Ig G Reviewed date:06/13/2024 12:34:15 PM Interpretation:Normal Performing Lab:[facility] [id number], Phone - [phone], Director - MENader Notes/Report: Haemophilus influenzae B IgG 1.02 NOTE: An anti-Hib level of 0.15 ug/mL is generally accepted as the minimum level for protection. Optimal protection post-vaccination requires a level greater than 1.00 ug/mL. -Tetanus/Diphtheria Ab Reviewed date:06/12/2024 09:08:54 AM Interpretation:Normal Performing Lab:[address] [id number], Phone - [phone], Director - MEMicah Notes/Report: Tetanus Antitoxoid IgG Ab 1.62 <0.10 IU/mL Interpretation: Non-Protective <0.10 Protective >=0.10 Results for this test are for research purposes only by the assay's basin finish operator tig welder. The performance characteristics of this product have not been established. Results should not be used as a diagnostic procedure without confirmation of the diagnosis by another medically established diagnostic product or procedure. Diphtheria Antitoxoid Ab 0.26 <0.10 IU/mL Interpretation: Non-Protective <0.10 Protective >=0.10 . For research use only. -Pneumococcal Ab (23 Serotyp e) Reviewed date:06/12/2024 09:08:46 AM Interpretation:Abnormal Performing Lab:[facility], [address] [place] [address], [address], [place], [place] [id number], Phone - [phone], Director - [facility] Notes/Report: Pneumo Ab Type 1* 2.3 >1.3 ug/mL Pneumo Ab Type 3* 0.4 >1.3 ug/mL Pneumo Ab Type 4* 5.2 >1.3 ug/mL Pneumo Ab Type 8* 2.4 >1.3 ug/mL Pneumo Ab Type 9 (9N)* 2.8 >1.3 ug/mL Pneumo Ab Type 12 (12F)* 0.1 >1.3 ug/mL Pneumo Ab Type 14* <0.1 >1.3 ug/mL Pneumo Ab Type 17 (17F)* 1.4 >1.3 ug/mL Pneumo Ab Type 19 (19F)* 4.6 >1.3 ug/mL Pneumo Ab Type 2* 1.9 >1.3 ug/mL Pneumo Ab Type 20* 3.4 >1.3 ug/mL Pneumo Ab Type 22 (22F)* 0.5 >1.3 ug/mL Pneumo Ab Type 23 (23F)* 1.1 >1.3 ug/mL Pneumo Ab Type 26 (6B)* 0.2 >1.3 ug/mL Pneumo Ab Type 34 (10A)* 14.7 >1.3 ug/mL Pneumo Ab Type 43 (11A)* 1.4 >1.3 ug/mL Pneumo Ab Type 5* 1.6 >1.3 ug/mL Pneumo Ab Type 51 (7F)* 0.5 >1.3 ug/mL Pneumo Ab Type 54 (15B)* 3.8 >1.3 ug/mL Pneumo Ab Type 56 (18C)* 1.5 >1.3 ug/mL Pneumo Ab Type 57 (19A)* 3.4 >1.3 ug/mL Pneumo Ab Type 68 (9V)* 2.9 >1.3 ug/mL Pneumo Ab Type 70 (33F)* 3.5 >1.3 ug/mL *This test was developed and its performance characteristics determined by [facility]. It has not been cleared or approved by the U.S. Food and Drug Administration. FLAG Interpretation: A = Abnormal, H = High, L = Low -I100 Cockrochristiano,Israeli Reviewed date:07/10/2024 10:42:17 AM Interpretation:Normal Performing Lab:[facility] [place], [address], [place], [place] [id number], Phone - [phone], Director - Do Notes/Report: Test(s) [id number] Cockroach, Israeli were developed and had performance characteristics determined by [facility]. These tests have not been cleared or approved by the U.S. Food and Drug Administration. The FDA has determined that such clearance or approval is not necessary. These tests are used for clinical purposes. These should not be regarded as investigational or for research. [id number] Cockroach, Israeli <0.10 Class 0 kU/L Levels of Specific IgE Class Description of Class ----- < 0.10 0 Negative 0.10 - 0.31 0/I Equivocal/Low 0.32 - 0.55 I Low 0.56 - 1.40 II Moderate 1.41 - 3.90 III High 3.91 - 19.00 IV Very High 19.01 - 100.00 V Very High >100.00 Very High [id number] Cockroach,Indonesian Reviewed date:07/10/2024 10:42:04 AM Interpretation:Normal Performing Lab:[address] [id number], Phone - [phone], Director - Do Notes/Report: Test(s) [id number] Cockroach, Israeli were developed and had performance characteristics determined by [facility]. These tests have not been cleared or approved by the U.S. Food and Drug Administration. The FDA has determined that such clearance or approval is not necessary. These tests are used for clinical purposes. These should not be regarded as investigational or for research. [id number] Cockroach, Indonesian <0.10 Class 0 kU/L Feather Mix IgE Reviewed date:07/16/2024 07:58:43 AM Interpretation:Normal Performing Lab:[facility], [address] [place] [address], [address], [place] [id number], Phone - [phone], Director - Marcelamd Notes/Report: Chicken,Duck,Goose,[place] IgE <0.10 <0.35 kU/L CLASS 0 The test method is the [employer] ImmunoCAP allergen-specific IgE system. CLASS INTERPRETATION <0.10 kU/L= 0, Negative; 0.10 - 0.34 kU/L= 0/1, Equivocal/Borderline; 0.35 - 0.69 kU/L=1, Low Positive; 0.70 - 3.49 kU/L=2, Moderate Positive; 3.50 - 17.49 kU/L=3, High Positive; 17.50 - 49.99 kU/L= 4, Very High Positive; 50.00 - 99.99 kU/L= 5, Very High Positive; >99.99 kU/L=6, Very High Positive FLAG Interpretation: A = Abnormal, H = High, L = Low Reason For Referral No Information Medications Medication SIG (Take, Route, Frequency, Duration) Notes Start Date End Date Status AUVI-Q 0.3 mg as directed intramuscularly once for 30 day(s) Active SIT (TRADITIONAL) variable per schedule per schedule for 999 days Active D3 125 mcg 1 tab(s) orally once a day for 30 day(s) Active Albuterol Sulfate HFA 108 (90 Base) MCG/ACT 2 puffs as needed Inhalation every 4 hrs for 30 days Active MARY 24 HOUR ALLERGY 180 mg 1 tab(s) orally once a day Active FLONASE 50 mcg/inh 1 spray in each nost ril twice a day Active PNEUMOVAX 23 - 0.5 mL intramuscular ly once for 1 dose(s) 09/28/2022 Active Auvi-Q 0.3 MG/0.3ML as directed intramuscularly once for 30 day(s) Active Flonase Allergy Relief 50 MCG/ACT 2 sprays in each nostril once a day Active OLOPATADINE HYDROCHLORIDE 665 mcg/inh 2 spray(s) intranasally 2 times a day for 30 days Active Mary Allergy 180 MG 1 tab(s) orally o nce a day Active Omeprazole 40 MG 1 cap(s) orally once a day for 30 day(s) Active AeroChamber MV - as directed for 30 days Any adult spacer Active Olopatadine HCl 0.6 % 2 sprays in each n ostril Nasally Twice a day Active Albuterol Sulfate HFA 108 (90 Base) MCG/ACT 1 puff as needed Inhalation every 4 hrs Active Dicyclomine HCl 20 MG 1 tablet Orally Th ree times a day Active ALBUTEROL (EQV-PROAIR HFA) 90 mcg/inh 2 [...] 100 MG Oral for 30 Days Active Immunizations Vaccine Route Administration Date Status Comme nts Hepatitis B (20 and more) Unknown 04/08/2015 Administer ed Portal Information Influenza Unknown 04/08/2020 Administered Portal [facility] NOC Tdap Unknown 03/08/2011 Administered Portal [facility] Social History Tobacco Use: Social History Observation Description Date Details (start date - stop date) Never Smoker NA - NA Tobacco Control (Standard) Question Answer Notes Tobacco use: Nonsmoker Problems Problem Type SNOMED Code ICD Code Onset Dates Problem Status W/U Status Risk Notes Problem Vitamin D deficiency (64575336) Vitamin D deficiency, unspecified (E55.9) Active confirmed Problem Chronic allergic conjunctivitis (53434808) Other chronic allergic conjunctivitis (H10.45) Active confirmed Problem Angina pectoris (066530983) Angina pectoris, unspecified (I20.9) Active confirmed Problem Allergic rhinitis caused by pollen (disorder) (53375487) Allergic rhinitis due to pollen (J30.1) Active confirmed Problem Allergic rhinitis (45445956) Other allergic rhinitis (J30.89) Active confirmed Problem Gastroduodenitis (290261160) Gastritis, unspecified, without bleeding (K29.70) Active confirmed Problem Cystic disease of liver (20966272) Cystic disease of liver (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.6) Active confirmed Problem Allergic rhinitis caused by animal hair and dander (138989072382240) Allergic rhinitis due to animal (cat) (dog) hair and dander (J30.81) Active confirmed Problem Chronic sinusitis (72191116) Chronic sinusitis, unspecified (J32.9) Active confirmed Problem Irritable bowel syndrome (27307241) Other irritable bowel syndrome (K58.8) Active confirmed Vital Signs Oximetry 100 % 08/06/2024 Blood pressure diastolic 71 mm Hg 08/06/2024 Height 67 in 08/06/2024 Blood pressure systolic 124 mm Hg 08/06/2024 Weight 193.4 lbs 08/06/2024 BMI 30.29 kg/m2 08/06/2024 Encounters Encounter Location Date Provider Diagnosis [address] [phone] 01/21/2024 Provider [facility] [address] [address] 09/05/2024 Sachin Brown Allergic rhinitis du e to pollen J30.1 ; Other allergic rhinitis J30.89 ; Allergic rhinitis due to animal (cat) (dog) hair and dander J30.81 and Other chronic allergic conjunctivitis H10.[address] [address] 11/30/2023 Sachin Brown Allergic rhinitis du e to pollen J30.1 ; Other allergic rhinitis J30.89 ; Allergic rhinitis due to animal (cat) (dog) hair and dander J30.81 and Other chronic allergic conjunctivitis H10.[address] [address] 12/07/2023 Sachin Brown Allergic rhinitis du e to pollen J30.1 ; Other allergic rhinitis J30.89 ; Allergic rhinitis due to animal (cat) (dog) hair and dander J30.81 and Other chronic allergic conjunctivitis H10.[address] [address] 12/14/2023 Sachin Brown Allergic rhinitis du e to pollen J30.1 ; Other allergic rhinitis J30.89 ; Allergic rhinitis due to animal (cat) (dog) hair and dander J30.81 and Other chronic allergic conjunctivitis H10.[address] [address] 01/11/2024 Sachin Brown Allergic rhinitis du e to pollen J30.1 ; Other allergic rhinitis J30.89 ; Allergic rhinitis due to animal (cat) (dog) hair and dander J30.81 and Other chronic allergic conjunctivitis H10.45 [facility] [address] [place] [phone] 02/08/2024 Sachin Kevin Allergic rhinitis du e to pollen J30.1 ; Other allergic rhinitis J30.89 ; Allergic rhinitis due to animal (cat) (dog) hair and dander J30.81 and Other chronic allergic conjunctivitis H10.45 [facility] [address] [place] [phone] 03/07/2024 Sachinlidia Brown Allergic rhinitis du e to pollen J30.1 ; Other allergic rhinitis J30.89 ; Allergic rhinitis due to animal (cat) (dog) hair and dander J30.81 and Other chronic allergic conjunctivitis H10.[address] [address] 03/21/2024 Sachin Brown Allergic rhinitis du e to pollen J30.1 ; Other allergic rhinitis J30.89 ; Allergic rhinitis due to animal (cat) (dog) hair and dander J30.81 and Other chronic allergic conjunctivitis H10.45 [facility] [address] [place] [phone] 04/04/2024 Sachin Brown Allergic rhinitis du e to pollen J30.1 ; Other allergic rhinitis J30.89 ; Allergic rhinitis due to animal (cat) (dog) hair and dander J30.81 and Other chronic allergic conjunctivitis H10.45 [facility] [address] [place] [phone] 04/17/2024 Sachin Brown Allergic rhinitis du e to pollen J30.1 ; Other allergic rhinitis J30.89 ; Allergic rhinitis due to animal (cat) (dog) hair and dander J30.81 and Other chronic allergic conjunctivitis H10.45 [facility] [address] [place] [phone] 05/07/2024 Lesia Blanc Allergic rhinitis du e to pollen J30.1 ; Allergic rhinitis due to animal (cat) (dog) hair and dander J30.81 ; Other allergic rhinitis J30.89 ; Other chronic allergic conjunctivitis H10.45 ; Chronic sinusitis, unspecified J32.9 ; Vitamin D deficiency, unspecified E55.9 ; Headache, unspecified R51.9 ; Chronic cough R05.3 ; Angioneurotic edema, subsequent encounter T78.3XXD and Elevated blood-pressure reading, without diagnosis of hypertension R03.0 [facility] [address] [place] [phone] 05/16/2024 Sachin Brown Allergic rhinitis du e to pollen J30.1 ; Other allergic rhinitis J30.89 ; Allergic rhinitis due to animal (cat) (dog) hair and dander J30.81 and Other chronic allergic conjunctivitis H10.[address] [address] 05/30/2024 Sachin Brown Allergic rhinitis du e to pollen J30.1 ; Other allergic rhinitis J30.89 ; Allergic rhinitis due to animal (cat) (dog) hair and dander J30.81 and Other chronic allergic conjunctivitis H10.45 [facility] [address] [place] [phone] 06/06/2024 Sachin Brown Allergic rhinitis du e to pollen J30.1 ; Other allergic rhinitis J30.89 ; Allergic rhinitis due to animal (cat) (dog) hair and dander J30.81 and Other chronic allergic conjunctivitis H10.[address] [address] 07/03/2024 Lesia Blanc Allergic rhinitis du e to pollen J30.1 ; Allergic rhinitis due to animal (cat) (dog) hair and dander J30.81 ; Other allergic rhinitis J30.89 ; Other chronic allergic conjunctivitis H10.45 ; Chronic sinusitis, unspecified J32.9 ; Vitamin D deficiency, unspecified E55.9 ; Headache, unspecified R51.9 ; Chronic cough R05.3 ; Angioneurotic edema, subsequent encounter T78.3XXD and Elevated blood-pressure reading, without diagnosis of hypertension R03.[address] [address] 08/06/2024 Lesia Blanc Allergic rhinitis du e to pollen J30.1 ; Allergic rhinitis due to animal (cat) (dog) hair and dander J30.81 ; Other allergic rhinitis J30.89 ; Other chronic allergic conjunctivitis H10.45 ; Chronic sinusitis, unspecified J32.9 ; Vitamin D deficiency, unspecified E55.9 ; Headache, unspecified R51.9 ; Chronic cough R05.3 ; Angioneurotic edema, subsequent encounter T78.3XXD and Elevated blood-pressure reading, without diagnosis of hypertension R03.0 [facility] [address] [place] [address] [employer] [address] [address] 08/22/2024 Sachin Brown Allergic rhinitis du e to pollen J30.1 ; Other allergic rhinitis J30.89 ; Allergic rhinitis due to animal (cat) (dog) hair and dander J30.81 and Other chronic allergic conjunctivitis H10.45 [facility] [address] [place] [phone] 08/29/2024 Sachin Brown Allergic rhinitis du e to pollen J30.1 ; Other allergic rhinitis J30.89 ; Allergic rhinitis due to animal (cat) (dog) hair and dander J30.81 and Other chronic allergic conjunctivitis H10.45 [facility] [address] [place] [phone] 09/06/2024 Sachin Brown Allergic rhinitis du e to pollen J30.1 ; Other allergic rhinitis J30.89 ; Allergic rhinitis due to animal (cat) (dog) hair and dander J30.81 and Other chronic allergic conjunctivitis H10.45 [facility] [address] [place] [address] [employer] [address] [address] 09/12/2024 Sachin Brown Allergic rhinitis du e to pollen J30.1 ; Other allergic rhinitis J30.89 ; Allergic rhinitis due to animal (cat) (dog) hair and dander J30.81 and Other chronic allergic conjunctivitis H10.[address] [employer] [address] [address] 09/20/2024 Sachin Brown Allergic rhinitis du e to pollen J30.1 ; Other allergic rhinitis J30.89 ; Allergic rhinitis due to animal (cat) (dog) hair and dander J30.81 and Other chronic allergic conjunctivitis H10.45 [facility] [address] [place] [address] 09/27/2024 Sachin Kevin Allergic rhinitis du e to pollen J30.1 ; Other allergic rhinitis J30.89 ; Allergic rhinitis due to animal (cat) (dog) hair and dander J30.81 and Other chronic allergic conjunctivitis H10.45 [facility] [address] [place] [phone] 10/03/2024 Sachin Brown Allergic rhinitis du e to pollen J30.1 ; Other allergic rhinitis J30.89 ; Allergic rhinitis due to animal (cat) (dog) hair and dander J30.81 and Other chronic allergic conjunctivitis H10.45 [facility] [address] [place] [phone] 10/11/2024 Sachin Brown Allergic rhinitis du e to pollen J30.1 ; Other allergic rhinitis J30.89 ; Allergic rhinitis due to animal (cat) (dog) hair and dander J30.81 and Other chronic allergic conjunctivitis H10.45 [facility] [address] [place] [phone] 10/17/2024 Sachin Brown Allergic rhinitis du e to pollen J30.1 ; Other allergic rhinitis J30.89 ; Allergic rhinitis due to animal (cat) (dog) hair and dander J30.81 and Other chronic allergic conjunctivitis H10.45 [facility] [address] [place] [address] 10/24/2024 Sachin Brown Allergic rhinitis du e to pollen J30.1 ; Other allergic rhinitis J30.89 ; Allergic rhinitis due to animal (cat) (dog) hair and dander J30.81 and Other chronic allergic conjunctivitis H10.45 [facility] [address] [place] [address] 10/31/2024 Sachin Brown Allergic rhinitis du e to pollen J30.1 ; Other allergic rhinitis J30.89 ; Allergic rhinitis due to animal (cat) (dog) hair and dander J30.81 and Other chronic allergic conjunctivitis H10.45 [facility] [address] [place] [address] 11/07/2024 Sachin Brown Allergic rhinitis du e to pollen J30.1 ; Other allergic rhinitis J30.89 ; Allergic rhinitis due to animal (cat) (dog) hair and dander J30.81 and Other chronic allergic conjunctivitis H10.[address] [address] 07/16/2024 Juan David Lam [facility] [address] [place] [address] 10/30/2024 Lesia Blanc Assessments Encounter Date Diagnosis (ICD Code) Assessment Notes Treatment Notes Treatment Clinical Notes Section Notes 11/30/2023 Allergic rhinitis due to pollen (ICD-10 - J30.1) 12/07/2023 Allergic rhinitis due to pollen (ICD-10 - J30.1) 12/14/2023 Allergic rhinitis due to pollen (ICD-10 - J30.1) 01/11/2024 Allergic rhinitis due to pollen (ICD-10 - J30.1) 02/08/2024 Allergic rhinitis due to pollen (ICD-10 - J30.1) 03/07/2024 Allergic rhinitis due to pollen (ICD-10 - J30.1) 03/21/2024 Allergic rhinitis due to pollen (ICD-10 - J30.1) 04/04/2024 Allergic rhinitis due to pollen (ICD-10 - J30.1) 04/17/2024 Allergic rhinitis due to pollen (ICD-10 - J30.1) 05/07/2024 Allergic rhinitis due to pollen (ICD-10 - J30.1) Mansi clearly suffers from atopic disease based upon our skin testing and history. Accordingly, we have encouraged her medication regimen, discussed nasal washes and allergy-specific avoidance measures. - Mansi returns with complaints of three sinus infections in the last 6 months. Also with complaints of increased sinus pressure and drainage. She is typically treated by her PCP who prescribed steroids, she reports she is not typically treated with antibiotics. Due tot his, she established with ENT, [facility]. Mansi states she was told she was swollen, and was started on Atrovent. She is now slated for CT scan of her sinuses. - Due to above symptoms, recommend increasing SCIT frequency to once every 1-2 weeks to assess for improved symptom control. We discussed reformulation today, which Mansi is considering. Documented on SCIT record. - Will update modified PIDD work-up, see plan below. - Continue medication regimen as above, discussed twice daily dosing of Flonase. - Continue work-up per ENT, records requested. - SCIT dosing received today and tolerated without large local or systemic reaction. - Follow-up as scheduled for SCIT and in 2 months for follow-up evaluation 05/07/2024 Allergic rhinitis due to animal (cat) (dog) hair and dander (ICD-10 - J30.81) Follow allergen avoidance, meds and continue SCIT as an adjunctive treatment to current regimen 05/16/2024 Allergic rhinitis due to pollen (ICD-10 - J30.1) 05/30/2024 Allergic rhinitis due to pollen (ICD-10 - J30.1) 06/06/2024 Allergic rhinitis due to pollen (ICD-10 - J30.1) 07/03/2024 Allergic rhinitis due to pollen (ICD-10 - J30.1) Mansi clearly suffers from atopic disease based upon our skin testing and history. Accordingly, we have encouraged her medication regimen, discussed nasal washes and allergy-specific avoidance measures. - Mansi returned one month ago with complaints of three sinus infections in the last 6 months. Also with complaints of increased sinus pressure and drainage. She is typically treated by her PCP who prescribed steroids, she reports she is not typically treated with antibiotics. Due tot his, she established with ENT, [facility]. Mansi states she was told she was swollen, and was started on Atrovent. She underwent CT scan of her sinuses, however no findings of acute or chronic sinusitis per report. - Due to above symptoms, recommend increasing SCIT frequency to once every 1-2 weeks to assess for improved symptom control. We also thoroughly discussed SCIT reformulation, which Mansi is interested in. Will obtain ImmunoCaps to feather and cockroach, otherwise increase concentrations of current RX. She plans to build-up via traditional schedule. Remake form signed today. - Continue medication regimen as above, continue twice daily dosing of Flonase. - Continue work-up per ENT. - Not due for SCIT dosing today. - Follow-up as scheduled for SCIT and in 2 months for follow-up evaluation 07/03/2024 Allergic rhinitis due to animal (cat) (dog) hair and dander (ICD-10 - J30.81) Follow allergen avoidance, meds and reformulate SCIT as an adjunctive treatment to current regimen 08/06/2024 Allergic rhinitis due to pollen (ICD-10 - J30.1) Mansi clearly suffers from atopic disease based upon our skin testing and history. Accordingly, we have encouraged her medication regimen, discussed nasal washes and allergy-specific avoidance measures. - Mansi returned recently with complaints of three sinus infections in the last 6 months. Also with complaints of increased sinus pressure and drainage. She is typically treated by her PCP who prescribed steroids, she reports she is not typically treated with antibiotics. Due to this, she established with ENT, [facility]. Mansi states she was told she was swollen, and was started on Atrovent. She underwent CT scan of her sinuses, however no findings of acute or chronic sinusitis per report. - Due to above symptoms, recommend increasing SCIT frequency to once every 1-2 weeks to assess for improved symptom control. We also thoroughly discussed SCIT reformulation, which Mansi is interested in. Last visit we obtained ImmunoCaps to feather and cockroach, which returned negative. Plan to increase concentrations of current RX. She plans to build-up via traditional schedule. She is slated to start next week. - Continue medication regimen as above, continue twice daily dosing of Flonase. - Continue work-up per ENT. - Not due for SCIT dosing today. - Follow-up as scheduled for SCIT and in 3-4 months for follow-up evaluation 08/06/2024 Allergic rhinitis due to animal (cat) (dog) hair and dander (ICD-10 - J30.81) Follow allergen avoidance, meds and reformulate SCIT as an adjunctive treatment to current regimen 08/22/2024 Allergic rhinitis due to pollen (ICD-10 - J30.1) 08/29/2024 Allergic rhinitis due to pollen (ICD-10 - J30.1) 09/05/2024 Allergic rhinitis due to pollen (ICD-10 - J30.1) 09/06/2024 Allergic rhinitis due to pollen (ICD-10 - J30.1) 09/12/2024 Allergic rhinitis due to pollen (ICD-10 - J30.1) 09/20/2024 Allergic rhinitis due to pollen (ICD-10 - J30.1) 09/27/2024 Allergic rhinitis due to pollen (ICD-10 - J30.1) 10/03/2024 Allergic rhinitis due to pollen (ICD-10 - J30.1) 10/11/2024 Allergic rhinitis due to pollen (ICD-10 - J30.1) 10/17/2024 Allergic rhinitis due to pollen (ICD-10 - J30.1) 10/24/2024 Allergic rhinitis due to pollen (ICD-10 - J30.1) 10/31/2024 Allergic rhinitis due to pollen (ICD-10 - J30.1) 11/07/2024 Allergic rhinitis due to pollen (ICD-10 - J30.1) 11/07/2024 Other allergic rhinitis (ICD-10 - J30.89) 10/31/2024 Other allergic rhinitis (ICD-10 - J30.89) 10/24/2024 Other allergic rhinitis (ICD-10 - J30.89) 10/17/2024 Other allergic rhinitis (ICD-10 - J30.89) 10/11/2024 Other allergic rhinitis (ICD-10 - J30.89) 10/03/2024 Other allergic rhinitis (ICD-10 - J30.89) 09/27/2024 Other allergic rhinitis (ICD-10 - J30.89) 09/20/2024 Other allergic rhinitis (ICD-10 - J30.89) 09/12/2024 Other allergic rhinitis (ICD-10 - J30.89) 09/06/2024 Other allergic rhinitis (ICD-10 - J30.89) 09/05/2024 Other allergic rhinitis (ICD-10 - J30.89) 08/29/2024 Other allergic rhinitis (ICD-10 - J30.89) 08/22/2024 Other allergic rhinitis (ICD-10 - J30.89) 08/06/2024 Other allergic rhinitis (ICD-10 - J30.89) Follow allergen avoidance, meds and reformulate SCIT as an adjunctive treatment to current regimen 07/03/2024 Other allergic rhinitis (ICD-10 - J30.89) Follow allergen avoidance, meds and reformulate SCIT as an adjunctive treatment to current regimen 06/06/2024 Other allergic rhinitis (ICD-10 - J30.89) 05/30/2024 Other allergic rhinitis (ICD-10 - J30.89) 05/16/2024 Other allergic rhinitis (ICD-10 - J30.89) 05/07/2024 Other allergic rhinitis (ICD-10 - J30.89) Follow allergen avoidance, meds and continue SCIT as an adjunctive treatment to current regimen 04/17/2024 Other allergic rhinitis (ICD-10 - J30.89) 04/04/2024 Other allergic rhinitis (ICD-10 - J30.89) 03/21/2024 Other allergic rhinitis (ICD-10 - J30.89) 03/07/2024 Other allergic rhinitis (ICD-10 - J30.89) 02/08/2024 Other allergic rhinitis (ICD-10 - J30.89) 01/11/2024 Other allergic rhinitis (ICD-10 - J30.89) 12/14/2023 Other allergic rhinitis (ICD-10 - J30.89) 12/07/2023 Other allergic rhinitis (ICD-10 - J30.89) 11/30/2023 Other allergic rhinitis (ICD-10 - J30.89) 11/30/2023 Allergic rhinitis due to animal (cat) (dog) hair and dander (ICD-10 - J30.81) 12/07/2023 Allergic rhinitis due to animal (cat) (dog) hair and dander (ICD-10 - J30.81) 12/14/2023 Allergic rhinitis due to animal (cat) (dog) hair and dander (ICD-10 - J30.81) 01/11/2024 Allergic rhinitis due to animal (cat) (dog) hair and dander (ICD-10 - J30.81) 02/08/2024 Allergic rhinitis due to animal (cat) (dog) hair and dander (ICD-10 - J30.81) 03/07/2024 Allergic rhinitis due to animal (cat) (dog) hair and dander (ICD-10 - J30.81) 03/21/2024 Allergic rhinitis due to animal (cat) (dog) hair and dander (ICD-10 - J30.81) 04/04/2024 Allergic rhinitis due to animal (cat) (dog) hair and dander (ICD-10 - J30.81) 04/17/2024 Allergic rhinitis due to animal (cat) (dog) hair and dander (ICD-10 - J30.81) 05/16/2024 Allergic rhinitis due to animal (cat) (dog) hair and dander (ICD-10 - J30.81) 05/07/2024 Other chronic allergic conjunctivitis (ICD-10 - H10.45) Given ocular signs and symptoms I encouraged allergy avoidance measures and meds as above. If symptoms persist, consider adding additional medications including intraocular antihistamine/mast cell stabilizer, PRN and continue SCIT as an adjunctive measure 05/30/2024 Allergic rhinitis due to animal (cat) (dog) hair and dander (ICD-10 - J30.81) 06/06/2024 Allergic rhinitis due to animal (cat) (dog) hair and dander (ICD-10 - J30.81) 07/03/2024 Other chronic allergic conjunctivitis (ICD-10 - H10.45) Given ocular signs and symptoms I encouraged allergy avoidance measures and meds as above. If symptoms persist, consider adding additional medications including intraocular antihistamine/mast cell stabilizer, PRN and reformulate SCIT as an adjunctive measure 08/22/2024 Allergic rhinitis due to animal (cat) (dog) hair and dander (ICD-10 - J30.81) 08/06/2024 Other chronic allergic conjunctivitis (ICD-10 - H10.45) Given ocular signs and symptoms I encouraged allergy avoidance measures and meds as above. If symptoms persist, consider adding additional medications including intraocular antihistamine/mast cell stabilizer, PRN and reformulate SCIT as an adjunctive measure 08/29/2024 Allergic rhinitis due to animal (cat) (dog) hair and dander (ICD-10 - J30.81) 09/05/2024 Allergic rhinitis due to animal (cat) (dog) hair and dander (ICD-10 - J30.81) 09/06/2024 Allergic rhinitis due to animal (cat) (dog) hair and dander (ICD-10 - J30.81) 09/12/2024 Allergic rhinitis due to animal (cat) (dog) hair and dander (ICD-10 - J30.81) 09/20/2024 Allergic rhinitis due to animal (cat) (dog) hair and dander (ICD-10 - J30.81) 09/27/2024 Allergic rhinitis due to animal (cat) (dog) hair and dander (ICD-10 - J30.81) 10/03/2024 Allergic rhinitis due to animal (cat) (dog) hair and dander (ICD-10 - J30.81) 10/11/2024 Allergic rhinitis due to animal (cat) (dog) hair and dander (ICD-10 - J30.81) 10/17/2024 Allergic rhinitis due to animal (cat) (dog) hair and dander (ICD-10 - J30.81) 10/24/2024 Allergic rhinitis due to animal (cat) (dog) hair and dander (ICD-10 - J30.81) 10/31/2024 Allergic rhinitis due to animal (cat) (dog) hair and dander (ICD-10 - J30.81) 11/07/2024 Allergic rhinitis due to animal (cat) (dog) hair and dander (ICD-10 - J30.81) 11/07/2024 Other chronic allergic conjunctivitis (ICD-10 - H10.45) 10/31/2024 Other chronic allergic conjunctivitis (ICD-10 - H10.45) 10/24/2024 Other chronic allergic conjunctivitis (ICD-10 - H10.45) 10/17/2024 Other chronic allergic conjunctivitis (ICD-10 - H10.45) 10/11/2024 Other chronic allergic conjunctivitis (ICD-10 - H10.45) 10/03/2024 Other chronic allergic conjunctivitis (ICD-10 - H10.45) 09/27/2024 Other chronic allergic conjunctivitis (ICD-10 - H10.45) 09/20/2024 Other chronic allergic conjunctivitis (ICD-10 - H10.45) 09/12/2024 Other chronic allergic conjunctivitis (ICD-10 - H10.45) 09/06/2024 Other chronic allergic conjunctivitis (ICD-10 - H10.45) 09/05/2024 Other chronic allergic conjunctivitis (ICD-10 - H10.45) 08/22/2024 Other chronic allergic conjunctivitis (ICD-10 - H10.45) 08/29/2024 Other chronic allergic conjunctivitis (ICD-10 - H10.45) 08/06/2024 Chronic sinusitis, unspecified (ICD-10 - J32.9) Previously with reports of frequent sinus infections meeting JMF criteria for modified PIDD work-up which showed S pneumo at 4/23 covered and diphtheria inadequately protected, S/p boosters with protection to diphtheria and borderline protection to S pneumo. - Mansi recently presented reporting three infections in the last 6 months. Due to increase, repeated PI work-up which showed borderline protection to S. pneumo, vitamin D 36 ng/mL. Other labs returned within normal limits. - Plan to monitor for infections, if additional infections occur, consider additional booster with Pneumovax or Prevnar 07/03/2024 Chronic sinusitis, unspecified (ICD-10 - J32.9) Previously with reports of frequent sinus infections meeting JMF criteria for modified PIDD work-up which showed S pneumo at 4/23 covered and diphtheria inadequately protected, S/p boosters with protection to diphtheria and borderline protection to S pneumo. - Mansi recently presented reporting three infections in the last 6 months. Due to increase, repeated PI work-up which showed borderline protection to S. pneumo, vitamin D 36 ng/mL. Other labs returned within normal limits. - Plan to monitor for infections, if additional infections occur, consider additional booster with Pneumovax or Prevnar 06/06/2024 Other chronic allergic conjunctivitis (ICD-10 - H10.45) 05/30/2024 Other chronic allergic conjunctivitis (ICD-10 - H10.45) 05/16/2024 Other chronic allergic conjunctivitis (ICD-10 - H10.45) 05/07/2024 Chronic sinusitis, unspecified (ICD-10 - J32.9) Previously with reports of frequent sinus infectons meeting JMF criteria for modified PIDD work-up which showed S penumo at 4/23 covered and dipheria inadequately protected, S/p boosters with protection to diptheria and borderline protection to S pneumo. - Mansi now presents reporting three infections in the last 6 months. Due to increase, will repeat PI work-up. Mansi to get labs drawn at least 4 weeks after last course of oral steroids. Orders sent to [facility]. - See plan above 04/17/2024 Other chronic allergic conjunctivitis (ICD-10 - H10.45) 04/04/2024 Other chronic allergic conjunctivitis (ICD-10 - H10.45) 03/21/2024 Other chronic allergic conjunctivitis (ICD-10 - H10.45) 03/07/2024 Other chronic allergic conjunctivitis (ICD-10 - H10.45) 02/08/2024 Other chronic allergic conjunctivitis (ICD-10 - H10.45) 01/11/2024 Other chronic allergic conjunctivitis (ICD-10 - H10.45) 12/14/2023 Other chronic allergic conjunctivitis (ICD-10 - H10.45) 12/07/2023 Other chronic allergic conjunctivitis (ICD-10 - H10.45) 11/30/2023 Other chronic allergic conjunctivitis (ICD-10 - H10.45) 05/07/2024 Vitamin D deficiency, unspecified (ICD-10 - E55.9) Rule out for immune work-up as above 07/03/2024 Vitamin D deficiency, unspecified (ICD-10 - E55.9) As above 08/06/2024 Vitamin D deficiency, unspecified (ICD-10 - E55.9) As above 07/03/2024 Headache, unspecified (ICD-10 - R51.9) - History possible related to sinus inflammation but given the chronicity of her symptoms with related migraines. Previously was set to get MRI and neurology referral for further management, however headaches improved. Slated for neurology evaluation 08/06/2024 Headache, unspecified (ICD-10 - R51.9) - History possible related to sinus inflammation but given the chronicity of her symptoms with related migraines. Previously was set to get MRI and neurology referral for further management, however headaches improved. - Now following with Neurology, started on Gabapentin with improvement in headaches. - Continue per Neurology 05/07/2024 Headache, unspecified (ICD-10 - R51.9) - History possible related to sinus inflammation but given the chronicity of her symptoms with related migraines. Previously was set to get MRI and neurology referral for further management, however headaches improved. Plan to discuss neurology evaluation next visit 05/07/2024 Chronic cough (ICD-10 - R05.3) Given symptoms, spirometry obtained at initial visit with mild obstruction and slight reversibility in FEV1 but not meeting asthma criteria per ATS standards. - Cough likey aeroallergen related; prior trial of H2 maddison did not provide any relief. - No complaints of cough, wheezing or shortness of breath today. - Continue SCIT as above and use RUTH ANN a- needed. - Consider ICS for frequent RUTH ANN use. - Mansi is to contact the office with increased lower airway symptoms 08/06/2024 Chronic cough (ICD-10 - R05.3) Given symptoms, spirometry obtained at initial visit with mild obstruction and slight reversibility in FEV1 but not meeting asthma criteria per ATS standards. - Cough likey aeroallergen related; prior trial of H2 maddison did not provide any relief. - No complaints of cough, wheezing or shortness of breath today. - Continue SCIT as above and use RUTH ANN a- needed. - Consider ICS for frequent RUTH ANN use. - Mansi is to contact the office with increased lower airway symptoms 07/03/2024 Chronic cough (ICD-10 - R05.3) Given symptoms, spirometry obtained at initial visit with mild obstruction and slight reversibility in FEV1 but not meeting asthma criteria per ATS standards. - Cough likey aeroallergen related; prior trial of H2 maddison did not provide any relief. - No complaints of cough, wheezing or shortness of breath today. - Continue SCIT as above and use RUTH ANN a- needed. - Consider ICS for frequent RUTH ANN use. - Mansi is to contact the office with increased lower airway symptoms 08/06/2024 Angioneurotic edema, subsequent encounter (ICD-10 - T78.3XXD) - Possible anaphylaxis x 3 times in her life with unknown trigger. First being > 5 years ago x 2 in 1 week then again in 06/2021 - Had normal tryptase in the past. - Instructed to carry her AIE at all times. - Journal for triggers if future reactions occur. At this time not c/w IgE mediated food allergy as she is unable to isolate any specific food that triggered symptoms and has continued to eat an unrestricted diet. Presume idiopathic anaphylaxis until determined otherwise 07/03/2024 Angioneurotic edema, subsequent encounter (ICD-10 - T78.3XXD) - Possible anaphylaxis x 3 times in her life with unknown trigger. First being > 5 years ago x 2 in 1 week then again in 06/2021 - Had normal tryptase in the past. - Instructed to carry her AIE at all times. - Journal for triggers if future reactions occur. At this time not c/w IgE mediated food allergy as she is unable to isolate any specific food that triggered symptoms and has continued to eat an unrestricted diet. Presume idiopathic anaphylaxis until determined otherwise 05/07/2024 Angioneurotic edema, subsequent encounter (ICD-10 - T78.3XXD) - Possible anaphylaxis x 3 times in her life with unknown trigger. First being > 5 years ago x 2 in 1 week then again in 06/2021 - Had normal tryptase in the past. - Instructed to carry her AIE at all times. - Journal for triggers if future reactions occur. At this time not c/w IgE mediated food allergy as she is unable to isolate any specific food that triggered symptoms and has continued to eat an unrestricted diet. Presume idiopathic anaphylaxis until determined otherwise 05/07/2024 Elevated blood-pressure reading, without diagnosis of hypertension (ICD-10 - R03.0) BP elevated today without symptoms of urgency or emergency. Continue serial checks and follow-up with PCP 07/03/2024 Elevated blood-pressure reading, without diagnosis of hypertension (ICD-10 - R03.0) BP elevated today without symptoms of urgency or emergency. Continue serial checks and follow-up with PCP 08/06/2024 Elevated blood-pressure reading, without diagnosis of hypertension (ICD-10 - R03.0) BP elevated today without symptoms of urgency or emergency. Continue serial checks and follow-up with PCP 07/02/2024 Other 05/07/2024 Other 07/03/2024 Other 08/06/2024 Other Plan Of Treatment Pending Test Test Name Order Date -EX71 Feather Mix 07/03/2024 Next Appt Details Provider Name:Lesia acosta, 11/26/2024 04:15:00 PM[facility] [address] [facility], [place]), [address], [place], [address], Insurance Providers Payer Name Payer Address Payer Phone Subscriber Number Group Number Insured Name Patient Relationship to Insured Coverage Start Date Coverage End Date [facility] [address] [address] [place] [phone] [id number] Mansi Jasmine Self - patient is the insured [facility] [address] [place] [address] [phone] [id number] Mansi Jasmine Self - patient is the insured 5 Medical (General) History Medical History History ICD Code Gastritis, unspecified, without bleeding K29.70 Angina pectoris, unspecified I20.9 Other irritable bowel syndrome K58.8 Cystic disease of liver Q44.6 Allergic rhinitis due to pollen J30.1 Allergic rhinitis due to animal (cat) (d og) hair and dander J30.81 Other allergic rhinitis J30.89 Other chronic allergic conjunctivitis H1 0.45 Surgical History Surgery Date(Month/Year) partial hysterectomy with removal of rig ht ovary 01/05/2012 abdominal scar tissue 04/08/2012 removal of left ovary 11/21/2015 abdominal scar tissue 11/21/2015 abdominal scar tissue 09/08/2021 abdominal scar tissue 03/08/2023
--- NOTE | 2024-11-17 10:02 | ED_ITS ---
HPI - Allergic Reaction General Chief complaint: Allergic Reaction Stated complaint: RASH TO SURGICAL SITE Time Seen by Provider: 11/17/24 10:01 Source: patient Mode of arrival: ambulatory Limitations: no limitations History of Present Illness HPI narrative: Patient presents with a rash at surgical site. She underwent laparoscopic abdominal scar tissue adhesion surgery with Ob Gyne doctor Lissa Matute on 11/09/2024. She has had surgery before and has had skin adhesive glue before but never had a reaction like this. She notes that it is hold itching also or and tender. She called the clinic office and the nurse recommended that she try to pick off some of the skin glue and use topical hydrocortisone cream. Patient has been using the topical cream but attempted to pickle pumper some of the glue but did not feel comfortable proceeding further given the fact that there was a few drops of blood which were easily cleaned with a Kleenex. She is having some generalized vague abdominal pain but nothing significant. Afebrile. Eating and drinking okay and with normal bowel movements. Related Data Home Medications ?Medication ?Instructions ?Recorded ?Confirmed ?Last Taken ?Type estradiol 2 mg tablet 2 mg PO DAILY 01/31/20 11/01/24 09/21/23 History fexofenadine 180 mg tablet 180 mg PO DAILY 01/31/20 11/01/24 10/01/21 History (Mary Allergy) multivitamin 1 tablet PO DAILY 01/31/20 11/01/24 09/28/21 History albuterol sulfate 90 mcg/actuation 2 puff inhalation Q6H PRN 09/25/21 11/01/24 Unknown History aerosol inhaler Bronchospasm fluticasone propionate 50 1 spray intranasal DAILY 10/02/21 11/09/24 11/09/24 History mcg/actuation nasal spray,suspension olopatadine 0.6 % nasal spray 2 spray intranasal BID 05/31/22 11/09/24 11/09/24 History cholecalciferol (vitamin D3) 25 25 mcg PO DAILY 11/01/24 11/01/24 Unknown History mcg (1,000 unit) capsule (Vitamin D3) gabapentin 100 mg capsule 200 mg PO HS 11/01/24 11/01/24 Unknown History hydrocodone 5 mg-acetaminophen 325 1 tablet PO Q6-8H PRN pain 11/01/24 11/01/24 Unknown History mg tablet sumatriptan succinate 25 mg tablet 25 mg PO Q2H PRN migraine headache 11/01/24 11/01/24 Unknown History Allergies Allergy/AdvReac Type Severity Reaction Status Date / Time Sulfa (Sulfonamide Allergy Intermediate rash Verified 11/17/24 09:10 Antibiotics) grass pollen Allergy sinus Verified 11/17/24 09:10 congestion azithromycin AdvReac Mild Diarrhea Verified 11/17/24 09:10 skin adhesive AdvReac Mild contact Uncoded 11/17/24 10:29 dermatitis PMFSH Past Medical History Medical History Fatigue Bloating Lower abdominal pain Change in bowel habits GERD (gastroesophageal reflux disease) Diverticulosis Asthma Chondromalacia Right knee pain Medial meniscus tear Right knee pain Overweight (BMI 25.0-29.9) Hiatal hernia Gastritis Abdominal pain Chronic pain syndrome Chest pain Irritable bowel syndrome Polycystic liver disease History of solitary pulmonary nodule Surgical History Surgical History (Updated 11/17/24 @ 10:28 by Rosette Rey MD) S/P laparoscopy with lysis of adhesions 11/09/24 [place] Delivery by section H/O total hysterectomy History of major abdominal surgery History of right oophorectomy Family History Family History Father Family history of lung cancer Mother Hypoglycemia Pacemaker Dissection, aorta Social History Social History Smoking status: Never smoker Alcohol intake: current Drinks per week: 1 Alcohol use details: rarely Substance use: never Substance use type: does not use Lack of Transportation: No Lack of Food: Never True Current Housing: I Have Housing Concerned About Future Housing: No Difficulty Paying Gas/Electric Bills: No Difficulty Paying for Meds: No Currently Unemployed: No Education: Bachelor's Degree Difficulty w/ Childcare or Family Care: No Living arrangements: with family Spiritual care concerns: No Exam Narrative: GENERAL: Well-appearing, well-nourished, and in no acute distress. HEAD: Normocephalic, atraumatic. EYES: Non injected, non icteric ENT: Nares clear, no rhinorrhea or epistaxis. NECK: Supple. CHEST: Speaking in full sentences. No respiratory distress. HEART: Regular rate and rhythm. . ABDOMEN: Soft, nondistended. EXTREMITIES: Normal range of motion. No lower extremity edema. SKIN: Warm, dry. Well-healing laparoscopic surgical sites in the mid and left lower quadrant of abdomen x2. Skin adhesive glue covers an area 3 x 2 little of the abdomen (surrounded by a larger 9x6 area of raised erythema and there was another location in the left lower quadrant 4x3cm as well as an area of urticaria just superior to this 2x1cm. No induration or purulent discharge. NEURO: No focal deficits. Alert and oriented x3. PSYCH: Normal mood and affect. Course Vital Signs Vital signs: Vital Signs Temperature 97.8 F 11/17/24 08:53 Pulse Rate 69 11/17/24 08:53 Respiratory Rate 16 11/17/24 08:53 Blood Pressure 141/63 H 11/17/24 08:53 Pulse Oximetry 98 11/17/24 08:53 Oxygen Delivery Room Air 11/17/24 08:53 Temperature 97.8 F 11/17/24 08:53 Pulse Rate 69 11/17/24 08:53 Respiratory Rate 16 11/17/24 08:53 Blood Pressure 141/63 H 11/17/24 08:53 Pulse Oximetry 98 11/17/24 08:53 Oxygen Delivery Room Air 11/17/24 08:53 MDM - Allergic Reaction MDM Narrative Medical decision making narrative: Patient is an area of contact dermatitis where surgical glue was applied after laparoscopic surgery on 11/09/2024 for abdominal scar tissue adhesion removal. In the emergency department she is afebrile with acceptable vital signs. She has been advised by surgical nurse to attempt to remove the skin glue and use hydrocortisone cream topically. She did the latter but did not feel comfortable proceeding with try to remove the skin glue as she noticed a small area of a few drops of bleeding when she attempted to. Surgical sites appear to be healing well but there is erythema and area of hives/urticaria. Patient provided a dose of prednisone in the emergency department with the rest of the course of a Medrol Dosepak prescribed. She is also prescribed diphenhydramine. Much of the area the skin glue is removed by myself and wounds appear well healing underneath. I did advise that a nurse bandage these with bacitracin. Patient is advised that she can use topical antibiotic and/or Vaseline/petroleum jelly if desired but to avoid Neosporin given that this can also irritate wounds. She verifies understanding and is in agreement. She has an upcoming follow-up appointment with Dr. Natarajan the and I advised that she keep this appointment. Differential Diagnosis Differential diagnosis: Likely contact dermatitis, urticaria and other (Considered wound dehiscence, abscess, infection) Discharge Plan Discharge Clinical Impression: Glued skin wound Contact dermatitis Qualifiers: Contact dermatitis type: unspecified Contact dermatitis trigger: adhesive Qualified Code(s): L23.1 - Allergic contact dermatitis due to adhesives Patient Disposition: Home Condition: Stable Instructions: Antibiotic Form, Contact Dermatitis (ED) Additional Instructions: A lot of the skin glue was removed in the emergency department today. You received a dose of prednisone and are being prescribed a different steroid taper you can start tomorrow. Keep your upcoming follow-up appointment with your Ob Gyne. Return to the emergency department any new or worsening symptoms. For the itching you can use the diphenhydramine/Benadryl though be aware that this can cause you to be sleepy. Patient Language: Botswanan Prescriptions: New methylprednisolone [Medrol (Jayden)] 4 mg tablets,dose pack See Rx Instructions .ROUTE .COMPLEX Qty: 21 0RF Rx Instructions: orally per package directions diphenhydramine HCl 25 mg capsule 25 mg PO ONCE PRN (Reason: itching) Qty: 20 0RF No Action fexofenadine [Mary Allergy] 180 mg tablet 180 mg PO DAILY estradiol 2 mg tablet 2 mg PO DAILY multivitamin Tablet 1 tablet PO DAILY olopatadine 0.6 % spray,non-aerosol 2 spray intranasal BID omeprazole 40 mg capsule,delayed release(DR/EC) See Rx Instructions .ROUTE .COMPLEX Qty: 90 3RF Dose Instruction: TAKE 1 CAPSULE DAILY Rx Instructions: TAKE 1 CAPSULE DAILY dicyclomine 10 mg capsule 10 - 20 mg PO .every 6 hours Qty: 120 6RF Patient Comments: Says takes 2 tabs every morning. albuterol sulfate 90 mcg/actuation HFA aerosol inhaler 2 puff INHALATION Q6H PRN (Reason: Bronchospasm) fluticasone propionate [Flonase] 50 mcg/actuation [place],Suspension 1 spray INTRANASAL DAILY cholecalciferol (vitamin D3) [Vitamin D3] 25 mcg (1,000 unit) capsule 25 mcg PO DAILY hydrocodone-acetaminophen 5-325 mg tablet 1 tablet PO Q6-8H PRN (Reason: pain) gabapentin 100 mg capsule 200 mg PO HS sumatriptan succinate 25 mg tablet 25 mg PO Q2H PRN (Reason: migraine headache) hydrocodone-acetaminophen 5-325 mg tablet 1 tablet PO Q4H PRN (Reason: pain) Qty: 20 0RF Follow-up/Referrals: Ty Benton MD [Physician] - Casey Romero DO [Primary Care Provider] - Stand Alone Forms: Work/School Release IP Time of Disposition: 10:25
--- OUTSIDE RECORDS SUMMARY | 2024-11-17 10:07 | XMS_ITS | Clinical Summary ---
Author Organization [facility] [address] [facility] [address] [place] [address] Care Team Providers Care Shipper/Receiver Name Role Phone Casey Romero DO Primary Care Provider +1- [phone] Allergies Active Allergy Reactions Criticality Noted Date [...] on file Legal Sex Female 10:25 PM SUPERVISOR ANODIZING Gender Identity Not on file Sexual Orientation Not on file Obstetrics History Last Filed Vital Signs Vital Sign Reading Time Taken Comments Blood Pressure 126/76 06/23/2020 1:56 PM SUPERVISOR ANODIZING Pulse 86 06/23/2020 1:56 PM SUPERVISOR ANODIZING Temperature 36.8 C (98.3 F) 06/23/2020 1:56 PM SUPERVISOR ANODIZING Respiratory Rate - - Oxygen Saturation 97% 03/06/2018 8:09 AM CDT Inhaled Oxygen Concentration - - Weight 84.8 kg (187 lb) 06/23/2020 1:56 PM SUPERVISOR ANODIZING Height 170.2 cm (5' 7 ) 06/23/2020 1:56 PM SUPERVISOR ANODIZING Body Mass Index 29.29 06/23/2020 1:56 PM SUPERVISOR ANODIZING Plan of Treatment Not on file Insurance [facility] CHOICE PLUS [address] CLAIMS [facility] Address: [facility] [address] [place] [address] [facility] CHOICE PLUS [address] CLAIMS Care Teams Shipper/Receiver Relationship Specialty Start Date End Date Casey Romero DO PCP - General Internal Medicine 02/21/18
--- OUTSIDE RECORDS SUMMARY | 2024-11-17 10:07 | XMS_ITS | Referral Summary ---
Author Organization [facility] [address] [facility] [address] Address [address] [place] [address] Care Team Providers Care Lettuce Trimmer Name Role Phone Casey Romero DO Primary Care Provider +1- [phone] Allergies Active Allergy Reactions Criticality Noted Date [...] on file Legal Sex Female 10:25 PM JOURNEY LINEMAN Gender Identity Not on file Sexual Orientation Not on file Last Filed Vital Signs Vital Sign Reading Time Taken Comments Blood Pressure 126/76 06/23/2020 1:56 PM JOURNEY LINEMAN Pulse 86 06/23/2020 1:56 PM JOURNEY LINEMAN Temperature 36.8 C (98.3 F) 06/23/2020 1:56 PM JOURNEY LINEMAN Respiratory Rate - - Oxygen Saturation 97% 03/06/2018 8:09 AM CDT Inhaled Oxygen Concentration - - Weight 84.8 kg (187 lb) 06/23/2020 1:56 PM JOURNEY LINEMAN Height 170.2 cm (5' 7 ) 06/23/2020 1:56 PM JOURNEY LINEMAN Body Mass Index 29.29 06/23/2020 1:56 PM JOURNEY LINEMAN Plan of Treatment Not on file Insurance [facility] CHOICE PLUS CLAIMS [facility] CHOICE PLUS Member Subscriber Plan / Payer (Ef fective 2019-Present) Name:Mansi Jasmine Relation to Subscriber:Self Name:Mansi Jasmine Payer ID:[id number] (NAIC) Type:[facility] HMO/PPO Address: [address] CLAIMS Care Teams Lettuce Trimmer Relationship Specialty Start Date End Date Casey Romero DO PCP - General Internal Medicine 02/21/18
--- OUTSIDE RECORDS SUMMARY | 2024-11-17 10:07 | XMS_ITS | Clinical Summary ---
Author Organization [facility] Address [address] [place] [address] Care Team Providers Care Sales Order Clerk Name Role Phone Unavailable Primary Care Provider [...]
--- OUTSIDE RECORDS SUMMARY | 2024-11-17 10:07 | XMS_ITS | Clinical Summary ---
Author Organization [facility] Address [address] [facility] [place] [address] Care Team Providers Care Student Support Services Director Name Role Phone Casey Romero DO Primary Care Provider +1- [phone] Source Comments [facility],non-owned Affiliates and Associated Physician Practices is amultiple site organization consisting of ambulatory clinics and hospital sitesin [place], [place], [place] and [place]. This disclosure is being madepursuant to the Care Everywhere program and may not contain all information available regarding this patient. Last updated 18.[facility] Allergies Active Allergy Reactions Criticality Noted Date [...] fluticasone propionate (Flonase) 50 MCG/ACT nasal spray [place] 2 (two) sprays into each nostril Active [...] on file Legal Sex Female 6:18 AM PROPERTY MAINTENANCE TECHNICIAN Gender Identity Not on file Sexual Orientation Not on file Last Filed Vital Signs Vital Sign Reading Time Taken Comments Blood Pressure 131/64 07/20/2024 8:58 AM PROPERTY MAINTENANCE TECHNICIAN Pulse 63 07/20/2024 8:58 AM PROPERTY MAINTENANCE TECHNICIAN Temperature 36.8 C (98.2 F) 10/17/2018 5:10 PM CDT Respiratory Rate 16 10/17/2018 5:10 PM CDT Oxygen Saturation 98% 07/20/2024 8:58 AM PROPERTY MAINTENANCE TECHNICIAN Inhaled Oxygen Concentration - - Weight 88.5 kg (195 lb) 07/20/2024 8:58 AM PROPERTY MAINTENANCE TECHNICIAN Height 172.7 cm (5' 8 ) 10/17/2018 5:10 PM CDT Body Mass Index 29.65 10/17/2018 5:10 PM CDT Plan of Treatment Upcoming Encounters Date Type Department Care Team (Late st Contact Info) Description 01/16/2025 4:00 PM CDT Office Visit [facility] - Neurology [address] [place] [address], [place] [id number] Jamil Delgado, DEHYDROGENATION OPERATOR-AUXILIARY OPERATOR [address] [facility] [address] [facility] [place] [address] Health Maintenance Due Date Last [...] SMEAR PAP JERONIMO 11/03/1998 10 :42 AM PROPERTY MAINTENANCE TECHNICIAN from Last 3 Months or Most Recently Relevant to Health Maintenance Results * CYTOLOGY SMEAR PAP (11/03/1998 10:42 AM PROPERTY MAINTENANCE TECHNICIAN) Result CASE NUMBER [id number] Comment: ORDERING PHYSICIAN JUSTIN KUMAR SPECIMEN TYPE PAP Smear Date 11/03/1998 Procedure Cervical/Endocervical, 2 smears received Specimen Adequacy Satisfactory for Evaluation but Limited No endocervical component in a non-atrophic cervical smear. Categorization Within Normal Limits Snomed. 11/06/1998 1503 <1> Tank Worker Marcin Toscano(ASCP) PAP Footnote The PAP smear is only a screening procedure to aid in the detection of cervical cancer and its precursors. It is not a diagnostic procedure and should not be used as the sole means to detect cervical cancer. Both false negative and false positive results have been experienced. MISCELLANEOUS SAMPLES / Unknown 11/03/1998 10:42 AM PROPERTY MAINTENANCE TECHNICIAN 11/04/1998 10:42 AM PROPERTY MAINTENANCE TECHNICIAN Historical Provider LAB - PATHOLOGY/CYTOLOGY ORDERABLES Final Result from Last 3 Months or Most Recently Relevant to Health Maintenance Insurance [facility] [place] [address] [facility] * Guarantor: MANSI JASMINE Account Type Relation to Patient Date of Phone Billing Address Personal/Family Spouse Care Teams Student Support Services Director Relationship Specialty Start Date End Date Casey Romero DO [address] [place] [address] PCP - General Internal Medicine 07/04/24
[2024-11-17] MEDS: BACITRACIN OINTMENT 15 GM TUBE 1 APPLIC TOPICAL (10:35)
[2024-11-17] MEDS: predniSONE 20 MG TABLET PO (10:35)
== END 2024-11-17 10:40 | disposition home or self-care (01) ==
PROVIDERS: Emergency Provider Student in an Organized Health Care Education/Training Program; PCP Internal Medicine
DX: L23.1 Allergic contact dermatitis due to adhesives (principal); J45.909 Unspecified asthma, uncomplicated; E66.3 Overweight; K58.9 Irritable bowel syndrome, unspecified; K21.9 Gastro-esophageal reflux disease without esophagitis; K44.9 Diaphragmatic hernia without obstruction or gangrene; G89.4 Chronic pain syndrome; Q44.6 Cystic disease of liver; Z90.710 Acquired absence of both cervix and uterus; Z90.721 Acquired absence of ovaries, unilateral; Z68.29 Body mass index [BMI] 29.0-29.9, adult
CPT/HCPCS: 99283; A9270; J7512

== ENCOUNTER 2025-01-01 16:14 | Emergency (ER) | payer OTHER, SELFPAY ==
[2025-01-01 16:21] VITALS: BP 127/66; PULSE 74; RESP 18; TEMP 36.2; O2SAT 100
--- NOTE | 2025-01-01 16:22 | ED_ITS ---
HPI - General Adult General Chief complaint: Ear Stated complaint: Ear Pain Time Seen by Provider: 01/01/25 16:23 Source: patient, RN notes reviewed and old records reviewed Mode of arrival: ambulatory Limitations: no limitations History of Present Illness HPI narrative: 54-year-old female presents to the [facility] with 3 week history of bilateral ear pain/pressure, congestion, drainage and cough. States symptoms got worse about a week ago. Supposed to have her allergy shots done this afternoon however when she called they canceled due to her symptoms. Does have in ENT. Recently on steroids in November States that she tried calling her primary care provider who suggested she come to the [facility] for an evaluation Related Data Home Medications ?Medication ?Instructions ?Recorded ?Confirmed ?Last Taken ?Type estradiol 2 mg tablet 2 mg PO DAILY 01/31/20 01/01/25 09/21/23 History fexofenadine 180 mg tablet 180 mg PO DAILY 01/31/20 11/01/24 10/01/21 History (Mary Allergy) multivitamin 1 tablet PO DAILY 01/31/20 11/01/24 09/28/21 History fluticasone propionate 50 1 spray intranasal DAILY 10/02/21 11/09/24 11/09/24 H istory mcg/actuation nasal spray,suspension olopatadine 0.6 % nasal spray 2 spray intranasal BID 05/31/22 11/09/24 11/09/24 History cholecalciferol (vitamin D3) 25 25 mcg PO DAILY 11/01/24 01/01/25 Unknown History mcg (1,000 unit) capsule (Vitamin D3) gabapentin 100 mg capsule 200 mg PO HS 11/01/24 11/01/24 Unknown History hydrocodone 5 mg-acetaminophen 325 1 tablet PO Q6-8H PRN pain 11/01/24 11/01/24 Unknown History mg tablet sumatriptan succinate 25 mg tablet 25 mg PO Q2H PRN migraine headache 11/01/24 11/01/24 Unknown History Allergies Allergy/AdvReac Type Severity Reaction Status Date / Time grass pollen Allergy Mild sinus Verified 01/01/25 16:17 congestion Sulfa (Sulfonamide Allergy Mild rash Verified 01/01/25 16:17 Antibiotics) azithromycin AdvReac Intermediate Diarrhea Verified 01/01/25 16:17 skin adhesive AdvReac Mild contact Uncoded 01/01/25 16:17 dermatitis Review of Systems Review of Systems: All systems reviewed & are unremarkable except as noted in HPI and below Constitutional: Constitutional: Reports no additional constitutional complaints ENT: Reports as per HPI, Reports otalgia, Reports nasal congestion and Reports nasal discharge Cardiovascular: Cardiovascular: Reports no additional cardiovascular complaints, Denies chest pain and Denies dyspnea Respiratory: Respiratory: Reports as per HPI, Denies chest congestion, Reports cough and Denies dyspnea Musculoskeletal: Musculoskeletal: Reports no additional musculoskeletal complaints Integumentary/Breasts: Skin/Breast: Reports system reviewed and no additional complaints, except as docu [facility] Past Medical History Medical History Fatigue Bloating Lower abdominal pain Change in bowel habits GERD (gastroesophageal reflux disease) Diverticulosis Asthma Chondromalacia Right knee pain Medial meniscus tear Right knee pain Overweight (BMI 25.0-29.9) Hiatal hernia Gastritis Abdominal pain Chronic pain syndrome Chest pain Irritable bowel syndrome Polycystic liver disease History of solitary pulmonary nodule Surgical History Surgical History (Updated 11/17/24 @ 10:28 by Rosette Rey MD) S/P laparoscopy with lysis of adhesions 11/09/24 [place] Delivery by section H/O total hysterectomy History of major abdominal surgery History of right oophorectomy Family History Family History Father Family history of lung cancer Mother Hypoglycemia Pacemaker Dissection, aorta Social History Social History Smoking status: Never smoker Alcohol intake: current Drinks per week: 1 Alcohol use details: rarely Substance use: never Substance use type: does not use Lack of Transportation: No Lack of Food: Never True Current Housing: I Have Housing Concerned About Future Housing: No Difficulty Paying Gas/Electric Bills: No Difficulty Paying for Meds: No Currently Unemployed: No Education: Bachelor's Degree Difficulty w/ Childcare or Family Care: No Living arrangements: with family Spiritual care concerns: No Comments At the time of my signature, I reviewed and agree with the nursing past medical, surgical, social, and family history. There is no relevant family history pertinent to the patient complaint. Exam Const: General: cooperative, healthy appearing, comfortable, no acute distress, well developed, alert and well nourished Nutritional Appearance: well nourished Orientation/consciousness: patient oriented x3 Limitations: no limitations HENMT: Head: normal to inspection Ears: hearing grossly normal bilaterally, external ears normal, mastoids normal, no periauricular adenopathy and TM abnormal wth effusion serous bilateral Face/Nose/Sinus: Normal external nose present, Normal septum present, No nasal discharge present, face symmetric and sinus tenderness Face and sinus: normal facial exam, face symmetric and sinus tenderness Mouth: Yes Normal oral and palatal mucosa present, Yes lip normal, Yes tongue normal and Yes moist mucous membranes Throat: posterior oropharynx normal, uvula midline and no uvular edema Eyes: General: appearance normal, both eyes and all related structures Alignment and Position: alignment normal Neck: Neck: normal visual inspection, full ROM, no lymphadenopathy and no meningeal signs Chest: Chest palpation & inspection: normal inspection of the chest Resp: Effort & Inspection: normal respiratory effort and able to speak in complete sentences Auscultation: clear to auscultation bilaterally, no crackles, no rales, no rhonchi and no wheezes Cardio: Rate: regular rate Skin: General skin exam: normal color and no rashes or lesions noted Neuro: General: patient oriented x3, gait normal, moves all extremities and no meningeal signs Cognition (Neuro): normal cognition Speech: normal speech Gait exam (Neuro): Normal gait present Extrem: General: normal to inspection, full ROM, capillary refill normal and normal gait Psych: Appearance: grossly normal and well kempt Mental Status: mental status grossly normal Speech and movement: Normal speech and movement present and Clear speech present Affect: normal affect Attitude: cooperative Course Course Level of Care: Express Care Visit Vital Signs Vital signs: Vital Signs Temperature 97.2 F L 01/01/25 16:21 Pulse Rate 74 01/01/25 16:21 Respiratory Rate 18 01/01/25 16:21 Blood Pressure 127/66 01/01/25 16:21 Pulse Oximetry 100 01/01/25 16:21 Oxygen Delivery Room Air 01/01/25 16:21 Temperature 97.2 F L 01/01/25 16:21 Pulse Rate 74 01/01/25 16:21 Respiratory Rate 18 01/01/25 16:21 Blood Pressure 127/66 01/01/25 16:21 Pulse Oximetry 100 01/01/25 16:21 Oxygen Delivery Room Air 01/01/25 16:21 Reviewed Medical Decision Making MDM Narrative Medical decision making narrative: Patient presents with URI symptoms, ear discomfort. Ears show serous otitis, 2 to symptoms being 3 weeks will cover with doxycycline, antibiotic, stressed the importance following up ENT, primary care provider. Patient appropriate for outpatient treatment and follow Discharge instructions reviewed with patient, as well as provided in writing per nursing staff. The instructions also include specific and strict return/GO TO THE ER as well as f/u information. All questions have been answered, and the patient deny any further questions with discharge and discharge plan. Some parts of this dictation were generated by voice recognition software and may contain typographical and/or grammatical inaccuracies. Differential Diagnosis Differential Diagnosis: Acute on chronic sinusitis, URI Medical Records Medical records reviewed: Yes I reviewed the external patient's medical records. Vital Signs Vital Signs: Vital Signs Temperature 97.2 F L 01/01/25 16:21 Pulse Rate 74 01/01/25 16:21 Respiratory Rate 18 01/01/25 16:21 Blood Pressure 127/66 01/01/25 16:21 Pulse Oximetry 100 01/01/25 16:21 Oxygen Delivery Room Air 01/01/25 16:21 Temperature 97.2 F L 01/01/25 16:21 Pulse Rate 74 01/01/25 16:21 Respiratory Rate 18 01/01/25 16:21 Blood Pressure 127/66 01/01/25 16:21 Pulse Oximetry 100 01/01/25 16:21 Oxygen Delivery Room Air 01/01/25 16:21 Reviewed Lab Data Lab results reviewed: Yes I reviewed the patient's lab results. Labs: Reviewed Critical Care Time Critical Care Time Critical Care Time: No Discharge Plan Discharge Clinical Impression: Sinusitis Qualifiers: Sinusitis location: maxillary Chronicity: unspecified Qualified Code(s): J32.0 - Chronic maxillary sinusitis Patient Disposition: Home Condition: Stable Instructions: Antibiotic Form, Sinusitis (ED) Additional Instructions: Follow-up with primary care provider Follow-up with ENT Patient Language: Gambian Prescriptions: New doxycycline monohydrate 100 mg tablet 100 mg PO BID Qty: 14 0RF No Action fexofenadine [Mary Allergy] 180 mg tablet 180 mg PO DAILY estradiol 2 mg tablet 2 mg PO DAILY multivitamin Tablet 1 tablet PO DAILY olopatadine 0.6 % spray,non-aerosol 2 spray intranasal BID omeprazole 40 mg capsule,delayed release(DR/EC) See Rx Instructions .ROUTE .COMPLEX Qty: 90 3RF Dose Instruction: TAKE 1 CAPSULE DAILY Rx Instructions: TAKE 1 CAPSULE DAILY fluticasone propionate [Flonase] 50 mcg/actuation [place],Suspension 1 spray INTRANASAL DAILY cholecalciferol (vitamin D3) [Vitamin D3] 25 mcg (1,000 unit) capsule 25 mcg PO DAILY hydrocodone-acetaminophen 5-325 mg tablet 1 tablet PO Q6-8H PRN (Reason: pain) gabapentin 100 mg capsule 200 mg PO HS sumatriptan succinate 25 mg tablet 25 mg PO Q2H PRN (Reason: migraine headache) hydrocodone-acetaminophen 5-325 mg tablet 1 tablet PO Q4H PRN (Reason: pain) Qty: 20 0RF methylprednisolone [Medrol ([place])] 4 mg tablets,dose pack See Rx Instructions .ROUTE .COMPLEX Qty: 21 0RF Rx Instructions: orally per package directions Follow-up/Referrals: PHYSICIAN,CERTIFIED MEDICINE AIDE [Primary Care Provider] - Casey Romero DO [Physician] - 1 Week ([facility] follow up) Time of Disposition: 16:36
== END 2025-01-01 16:38 | disposition home or self-care (01) ==
PROVIDERS: Emergency Provider Nurse Practitioner
DX: J32.0 Chronic maxillary sinusitis (principal); K21.9 Gastro-esophageal reflux disease without esophagitis; J45.909 Unspecified asthma, uncomplicated; Q44.6 Cystic disease of liver
CPT/HCPCS: 99213; G0463

== ENCOUNTER 2025-03-11 08:15 | Emergency (ER) | payer OTHER, SELFPAY ==
--- NOTE | ~2025-03-11 | XR_ITS ---
EXAMINATION: XR foot RT min 3V DATE: 03/11/2025 08:39 INDICATION: Lateral right foot pain and bruising TECHNIQUE: Dorsoplantar, two oblique and lateral views of the right foot were obtained. COMPARISON: None. FINDINGS: Nondisplaced intra-articular fracture at the lateral tuberosity the base of the right fifth metatarsa l with no significant fracture gap or incongruity along the articular surface. The bone alignment rem ains essentially anatomic. No other fractures identified. Minimal osteoarthritis at the first metatar sophalangeal joint. Small plantar calcaneal spur. IMPRESSION: 1. Nondisplaced intra-articular fracture at the base of the right fifth metatarsal. Reviewed, dictated and finalized at location A. IMPRESSION: 1. Nondisplaced intra-articular fracture at the base of the right fifth metatar shweta.
--- NOTE | 2025-03-11 08:18 | ED_ITS ---
HPI - Extremity Injury (Lower) General Chief Complaint: Extremity Injury, Lower Stated Complaint: R Foot Pain Time Seen by Provider: 03/11/25 08:26 Source: patient, RN notes reviewed and old records reviewed Mode of arrival: ambulatory Limitations: no limitations History of Present Illness HPI Narrative: 54-year-old female presents to the [facility] with complaints of right foot pain. fall while walking dog Pain to the lateral aspect of the right foot. Bruising is noted. Tenderness along the 5th metatarsal Treatments prior to arrival: cold therapy and other (tylenol) Related Data Home Medications ?Medication ?Instructions ?Recorded ?Confirmed ?Last Taken ?Type estradiol 2 mg tablet 2 mg PO DAILY 01/31/20 03/11/25 09/21/23 History fexofenadine 180 mg tablet 180 mg PO DAILY 01/31/20 03/11/25 10/01/21 History (Mary Allergy) multivitamin 1 tablet PO DAILY 01/31/20 03/11/25 09/28/21 History fluticasone propionate 50 1 spray intranasal DAILY 10/02/21 03/11/25 11/09/24 History mcg/actuation nasal spray,suspension olopatadine 0.6 % nasal spray 2 spray intranasal BID 05/31/22 03/11/25 11/09/24 History cholecalciferol (vitamin D3) 25 25 mcg PO DAILY 11/01/24 03/11/25 Unknown History mcg (1,000 unit) capsule (Vitamin D3) sumatriptan succinate 25 mg tablet 25 mg PO Q2H PRN migraine headache 11/01/24 03/11/25 Unknown History Allergies Allergy/AdvReac Type Severity Reaction Status Date / Time grass pollen Allergy Mild sinus Verified 03/11/25 08:22 congestion Sulfa (Sulfonamide Allergy Mild rash Verified 03/11/25 08:22 Antibiotics) azithromycin AdvReac Intermediate Diarrhea Verified 03/11/25 08:22 skin adhesive AdvReac Mild contact Uncoded 03/11/25 08:22 dermatitis Review of Systems 2 Review of Systems: All systems reviewed & are unremarkable except as noted in HPI and below Constitutional: Constitutional: Reports no additional constitutional complaints Musculoskeletal: Musculoskeletal: Reports as per HPI and Reports other (right lateral foot pain ) Integumentary/Breasts: Skin/Breast: Reports system reviewed and no additional complaints, except as docu [facility] Past Medical History Medical History Fatigue Bloating Lower abdominal pain Change in bowel habits GERD (gastroesophageal reflux disease) Diverticulosis Asthma Chondromalacia Right knee pain Medial meniscus tear Right knee pain Overweight (BMI 25.0-29.9) Hiatal hernia Gastritis Abdominal pain Chronic pain syndrome Chest pain Irritable bowel syndrome Polycystic liver disease History of solitary pulmonary nodule Surgical History Surgical History S/P laparoscopy with lysis of adhesions 11/09/24 [place] Delivery by section H/O total hysterectomy History of major abdominal surgery History of right oophorectomy Family History Family History Father Family history of lung cancer Mother Hypoglycemia Pacemaker Dissection, aorta Social History Social History Smoking status: Never smoker Alcohol intake: current Drinks per week: 1 Alcohol use details: rarely Substance use: never Substance use type: does not use Lack of Transportation: No Lack of Food: Never True Current Housing: I Have Housing Concerned About Future Housing: No Difficulty Paying Gas/Electric Bills: No Difficulty Paying for Meds: No Currently Unemployed: No Education: Bachelor's Degree Difficulty w/ Childcare or Family Care: No Living arrangements: with family Spiritual care concerns: No Comments At the time of my signature, I reviewed and agree with the nursing past medical, surgical, social, and family history. There is no relevant family history pertinent to the patient complaint. Exam 2 Const: General: cooperative, healthy appearing, comfortable, no acute distress, well developed, alert and well nourished Nutritional Appearance: w ell nourished Orientation/consciousness: patient oriented x3 Limitations: no limitations HENMT: Head: normal to inspection Eyes: General: appearance normal, both eyes and all related structures A lignment and Position: alignment normal Neck: Neck: normal visual inspection, full ROM, no lymphadenopathy and no meningeal signs Chest: Chest palpation & inspection: normal inspection of the chest Resp: Effort & Inspection: normal respiratory effort and able to speak in complete sentences Cardio: Rate: regular rate Back/Spine/Pelvis: Back: No back tenderness Skin: General skin exam: normal color Neuro: General: patient oriented x3, gait normal, moves all extremities and no meningeal signs Cognition (Neuro): normal cognition Speech: normal speech Gait exam (Neuro): Normal gait present Extrem: General: normal to inspection, full ROM, capillary refill normal and normal gait Right lower extremity: full ROM, normal capillary refill and foot Details: normal capillary refill, tenderness Location: of the lateral foot Location: distally, in the mid-section and proximally, abrasion and ecchymosis Ankle/foot/toe images: 1. Ecchymosis and tenderness Psych: Appearance: grossly normal and well kempt Mental Status: mental status grossly normal Speech and movement: Normal speech and movement present and Clear speech present Affect: normal affect Attitude: cooperative Course Course Level of Care: Express Care Visit Vital Signs Vital signs: Vital Signs Temperature 98.1 F 03/11/25 08:22 Pulse Rate 64 03/11/25 08:22 Respiratory Rate 18 03/11/25 08:22 Blood Pressure 139/72 03/11/25 08:22 Pulse Oximetry 99 03/11/25 08:22 Oxygen Delivery Room Air 03/11/25 08:22 Temperature 98.1 F 03/11/25 08:22 Pulse Rate 64 03/11/25 08:22 Respiratory Rate 18 03/11/25 08:22 Blood Pressure 139/72 03/11/25 08:22 Pulse Oximetry 99 03/11/25 08:22 Oxygen Delivery Room Air 03/11/25 08:22 Reviewed MDM - Extremity Injury (Lower) MDM Narrative Medical decision making narrative: Patient sitting in exam room. Patient is nontoxic, vitals stable. Walking with a normal gait. Tripped while walking dog yesterday, tenderness to the proximal 5th metatarsal, bruising is noted. X-ray shows nondisplaced fracture Splint applied, crutches given, follow-up with Ortho or Podiatry discussed with patient. Patient is appropriate for outpatient treatment with close follow-up Discharge instructions reviewed with patient, as well as provided in writing per nursing staff. The instructions also include specific and strict return/GO TO THE ER as well as f/u information. All questions have been answered, and the patient deny any further questions with discharge and discharge plan. Some parts of this dictation were generated by voice recognition software and may contain typographical and/or grammatical inaccuracies. Differential Diagnosis Differential diagnosis: Likely other (Foot fracture, foot sprain, foot contusion) Imaging Data Radiologist's impression: EXAMINATION: XR foot RT min 3V DATE: 03/11/2025 08:39 INDICATION: Lateral right foot pain and bruising TECHNIQUE: Dorsoplantar, two oblique and lateral views of the right foot were obtained. COMPARISON: None. FINDINGS: Nondisplaced intra-articular fracture at the lateral tuberosity the base of the right fifth metatarsal with no significant fracture gap or incongruity along the articular surface. The bone alignment remains essentially anatomic. No other fractures identified. 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 Small plantar calcaneal spur. IMPRESSION: 1. Nondisplaced intra-articular fracture at the base of the right fifth metatarsal. Critical Care Time Critical Care Time Critical Care Time: No Discharge Plan Discharge Clinical Impression: Fracture of 5th metatarsal Qualifiers: Encounter type: initial encounter Fracture type: closed Fracture alignment: n ondisplaced Laterality: right Qualified Code(s): S92.354A - Nondisplaced fracture of fifth metatarsal bone, right foot, initial encounter for closed fracture Patient Disposition: Home Condition: Stable Instructions: Crutch Instructions (ED), Foot Fracture in Adults (ED), Splint Care (ED) Additional Instructions: Your Xray did show a fracture to the 5th metatarsal Wear the splint until cleared by Ortho or Podiatry Ice should be applied to help reduce swelling. It can be used for 20 to 30 minutes, every 2-3 hours while awake. Do not apply ice directly to your skin. You can alternate ibuprofen 600mg and Tylenol 650mg every 4 hours as needed for pain Please schedule a follow-up visit with your personal physician For new or worsening symptoms go directly to the emergency room Patient Language: Burkinan Prescriptions: No Action fexofenadine [Mary Allergy] 180 mg tablet 180 mg PO DAILY estradiol 2 mg tablet 2 mg PO DAILY multivitamin Tablet 1 tablet PO DAILY olopatadine 0.6 % spray,non-aerosol 2 spray intranasal BID omeprazole 40 mg capsule,delayed release(DR/EC) See Rx Instructions .ROUTE .COMPLEX Qty: 90 3RF Dose Instruction: TAKE 1 CAPSULE DAILY Rx Instructions: TAKE 1 CAPSULE DAILY fluticasone propionate [Flonase] 50 mcg/actuation [place],Suspension 1 spray INTRANASAL DAILY cholecalciferol (vitamin D3) [Vitamin D3] 25 mcg (1,000 unit) capsule 25 mcg PO DAILY sumatriptan succinate 25 mg tablet 25 mg PO Q2H PRN (Reason: migraine headache) Follow-up/Referrals: Luis Antonio Rodríguez MD [Physician] - 2 Days (express care follow-up, 5th metatarsal fracture) Evangelist Kiser Jr., DPM [Physician] - Troy Castañeda DPM [Physician] - Casey Romero DO [Primary Care Provider] - 2 Weeks (express care follow up ) Stand Alone Forms: Work/School Release IP Time of Disposition: 09:07
[2025-03-11 08:22] VITALS: BP 139/72; PULSE 64; RESP 18; TEMP 36.7; O2SAT 99
== END 2025-03-11 09:16 | disposition home or self-care (01) ==
PROVIDERS: Emergency Provider Nurse Practitioner; PCP Internal Medicine
DX: S92.354A Nondisplaced fracture of fifth metatarsal bone, right foot, initial encounter for closed fracture (principal); W01.0XXA Fall on same level from slipping, tripping and stumbling without subsequent striking against object, initial encounter; Y93.K1 Activity, walking an animal; K21.9 Gastro-esophageal reflux disease without esophagitis; J45.909 Unspecified asthma, uncomplicated; Q44.6 Cystic disease of liver
CPT/HCPCS: 29515; 73630; 99214; G0463